=== PATIENT | male | born 1950 | race Caucasian/White ===

== ENCOUNTER 2023-11-16 12:41 | Outpatient (OUT) | payer OTHER, SELFPAY ==
--- NOTE | 2023-11-16 12:44 | CT_ITS ---
[address] [address] Patient Name: KIRSTIE BOSWELL MRN: [id number] date: 1950 Sex: M Assigned Patient Location: CT Current Patient Location: CT Accession/Order Number: [id number] Exam Date: 11/16/2023 12:50 Report Date: 11/16/2023 14:09 At the request of: ELEAZAR SCALES Procedure: CT lung screening low-dose EXAMINATION: CT lung screening low-dose HISTORY: History Of Heavy Smoking COMPARISON: No relevant comparison available. TECHNIQUE: Axial, Coronal, and Sagittal images were created without the administration of IV contrast material. Dose reduction techniques were achieved by using automated exposure control and/or adjustment of mA and/or kV according to patient size and/or use of iterative reconstruction technique. FINDINGS: LUNGS: Mild centrilobular and paraseptal emphysema with an upper lobe predominance. Scattered punctate pulmonary nodules. No significant pulmonary nodule or mass is observed. Mild diffuse peribronchial thickening PLEURA: No mass, effusion, or pneumothorax. VASCULATURE: No abnormality. JOSH: No mass or pathologic adenopathy. MEDIASTINUM: No mass or pathologic adenopathy. CARDIAC: No enlargement or pericardial effusion. Heavy coronary atherosclerosis AORTA: Dilation of the ascending aorta up to 4.1 cm in diameter. Moderate diffuse atherosclerosis. Abdominal aortic endograft partially visualized. CHEST WALL: No mass or axillary adenopathy BONES: No bone lesion or fracture. LIMITED ABDOMEN: No suspicious findings. Limited images of the upper abdomen. OTHER: Negative. CT/CT lung screening low-dose IMPRESSION: LUNG SCREENING: Lung-RADS Category 2- Benign Appearance or Behavior. Nodules with a very low likelihood of becoming a clinically active cancer due to size or lack of growth. 2. Continue annual screening with LDCT in 12 months. Electronically authenticated by: ELEAZAR GOODWIN Date: 11/16/2023 14:09
== END 2023-11-16 12:42 | disposition home or self-care (01) ==
LOC: CT 12:41
PROVIDERS: Visit Provider Family Medicine
DX: F17.200 Nicotine dependence, unspecified, uncomplicated (principal)
CPT/HCPCS: 71271

== ENCOUNTER 2024-07-02 14:44 | Emergency (ER) | payer OTHER, SELFPAY ==
[2024-07-02] VITALS (9 sets, daily range): BP systolic 109–144; BP diastolic 72–93; PULSE 62–79; TEMP 36.6; O2SAT 94–98; BMI 21.1
--- NOTE | 2024-07-02 14:49 | ECG_ITS ---
The [facility] Test Date: 2024-07-02 Pat Name: KIRSTIE BOSWELL Department: Room: - Gender: Male [employer]: : 1950 Requested By: Order Number: [id number] Reading MD: LINDA ELLIS Measurements Intervals [place] Rate: 64 P: 270 KS: 112 QRS: 32 QRSD: 82 T: 28 QT: 422 QTc: 431 Interpretive Statements 1300 Junctional rhythm 9140 abnormal rhythm ECG Electronically Signed On 07-02-2024 20:42:43 EDT by LINDA ELLIS
--- NOTE | 2024-07-02 14:49 | XR_ITS ---
The [address] [address] Patient Name: KIRSTIE BOSWELL MRN: [id number] date: 1950 Sex: M Assigned Patient Location: ED.MAIN Current Patient Location: ED.MAIN Accession/Order Number: [id number] Exam Date: 07/02/2024 15:21 Report Date: 07/02/2024 16:01 At the request of: JENNIFER DENNEY Procedure: XR chest 1V EXAM: XR chest 1V HISTORY: Near syncope COMPARISON: None. TECHNIQUE: AP upright portable. FINDINGS: Atherosclerotic calcification of the thoracic aorta. Cardiac size and pulmonary vascularity are within normal limits. The lungs and the costophrenic angles are clear. Old posttraumatic deformity of the mid left clavicle. Old healed left lateral rib fractures. Advanced degenerative change of the left glenohumeral joint. XR/XR chest 1V IMPRESSION: No acute cardiopulmonary disease. Electronically authenticated by: ETTA KELLY Date: 07/02/2024 16:01
--- NOTE | 2024-07-02 14:49 | CT_ITS ---
The [address] [address] Patient Name: KIRSTIE BOSWELL MRN: [facility]:[id number] date: 1950 Sex: M Assigned Patient Location: ED.MAIN Current Patient Location: ED.MAIN Accession/Order Number: [id number] Exam Date: 07/02/2024 15:21 Report Date: 07/02/2024 15:46 At the request of: JENNIFER DENNEY Procedure: CT cervical spine wo con CT CERVICAL SPINE WITHOUT IV CONTRAST. INDICATION: Near syncope. COMPARISON: There are no prior studies available for comparison. TECHNIQUE: CT of the cervical spine without contrast. Orthogonal sagittal and coronal multiplanar reformatted images were created. . FINDINGS: BONY ALIGNMENT: There is normal cervical lordosis. There is minimal grade 1 anterolisthesis at C7-T1 without spondylolysis. VERTEBRAL BODY: No acute fracture of the cervical spine. Moderate multilevel degenerative spondylosis. CENTRAL CANAL/NEURAL FORAMINA: No high-grade central canal stenosis. There is moderate to severe left C3-4 and left C5-6 neural foraminal stenosis.. SOFT TISSUE: No mass or inflammation. UPPER LUNGS: No acute findings. CT/CT cervical spine wo con IMPRESSION: No acute cervical spinal fracture. Electronically authenticated by: SARAH BARRIENTOS Date: 07/02/2024 15:46
--- NOTE | 2024-07-02 14:50 | ED_ITS ---
HPI HPI - General Adult General Chief complaint: Syncope Stated complaint: SYNCOPE Time Seen by Provider: 07/02/24 14:49 Source: patient and EMR Mode of arrival: ambulance History of Present Illness HPI narrative: Patient is a 74-year-old male with a history of hypertension and remote history of CVA who presents to the emergency department by ambulance after a syncopal episode that was apparently witnessed at the [employer] where the patient was drinking with his daughter. He was apparently witnessed to slump over after eating. Daughter told EMS that they have been trying to get home health for the patient as he had a fall last night, EMS was dispatched but he refused treatment. Patient denies any recent illness. He has no pain at time of evaluation and did not have any falls or injuries. EMS started fluids, no medications given prior to arrival. Related Data Home Medications ?Medication ?Instructions ?Recorded ?Confirmed amlodipine 07/02/24 gabapentin 07/02/24 metoprolol tartrate 07/02/24 omeprazole 07/02/24 simvastatin 07/02/24 Allergies Allergy/AdvReac Type Severity Reaction Status Date / Time atorvastatin [From Lipitor] Allergy Severe Unknown Verified 07/02/24 14:54 lisinopril Allergy Severe Unknown Verified 07/02/24 14:54 Opioid HPI Opioid Management Most Recent Opioid Data: No Data to Display Review of Systems ROS Constitutional Denies: fever or chills Ears, nose, mouth, and throat Denies: throat pain or nasal congestion Cardiovascular Denies: chest pain Respiratory Denies: shortness of breath or cough Gastrointestinal Denies: nausea or vomiting Musculoskeletal Denies: back pain, neck pain or extremity pain Integumentary/Breast Denies: rash Neurological Denies: numbness in extremities, weakness in extremities or dizziness Hematologic/Lymphatic Denies: easy bruising or easy bleeding Exam Narrative Exam Narrative: Gen.: Awake, alert, in no distress Head: Normocephalic, atraumatic ENT: Moist mucous membranes Respiratory: No respiratory distress, lungs clear bilaterally Cardio: Regular rate and rhythm Gastrointestinal: Abdomen is soft, nondistended and nontender to palpation Extremities: Moves extremities equally, no injuries noted Psych: Normal mood and affect Neuro: No focal neuro deficit Skin: Warm, dry, intact Constitutional Vital Signs, click to edit/add: Last Vital Signs Temp 97.9 F 07/02/24 14:48 Pulse 65 07/02/24 16:00 Resp 22 H 07/02/24 16:00 BP 144/77 H 07/02/24 16:12 Pulse Ox 97 07/02/24 16:00 O2 Del Method Room Air 07/02/24 14:48 Course Vital Signs Vital signs: Vital Signs Temperature 97.9 F 07/02/24 14:48 Pulse Rate 70 07/02/24 14:48 Respiratory Rate 18 07/02/24 14:48 Blood Pressure 125/75 07/02/24 14:48 Pulse Oximetry 97 07/02/24 14:48 Oxygen Delivery Method Room Air 07/02/24 14:48 Temperature 97.9 F 07/02/24 14:48 Pulse Rate 65 07/02/24 16:00 Respiratory Rate 22 H 07/02/24 16:00 Blood Pressure 144/77 H 07/02/24 16:12 Pulse Oximetry 97 07/02/24 16:00 Oxygen Delivery Method Room Air 07/02/24 14:48 Medical Decision Making MDM Narrative Medical decision making narrative: Patient sent for CTs of the head and C-spine which were unremarkable, chest x- ray is also unremarkable. Patient with no EKG changes or complaints of chest pain in the ER. He was treated with IV fluids. Vital signs remained stable. He was noted to have an elevated troponin of 350. Case was discussed with the patient and his daughter at bedside by attending physician. Patient and daughter are in agreement with transfer to tertiary care facility for cardiology evaluation. He has been to [facility] in the past and request transfer to this facility. Patient was accepted by hospitalist, Dr. Mckeon. He requested that the patient receive Lovenox and lieu of heparin. Patient was treated with a spirin, 1 mg/kg Lovenox subq and is stable at time of transfer to [facility]. Critical care time 35 minutes. SHARED APC VISIT, PHYSICIAN ATTESTATION: [id number] I performed a substantive part of the MDM during the patient?s E/M visit. I personally evaluated and examined the patient. I personally made or approved the documented management plan and acknowledge its risk of complications. Medical Records Medical records reviewed: Yes I reviewed the patient's medical records Lab Data Lab results reviewed: Yes I reviewed the patient's lab results Labs: Lab Results 07/02/24 Range/Units 15:02 WBC 12.6 H (4.0-11.0) 10^3/uL RBC 3.99 L (4.70-6.10) 10^6/uL Hgb 12.3 L (14.0-18.0) g/dL Hct 37.0 L (42.0-54.0) % MCV 92.7 (80.0-94.0) fL MCH 30.8 (25.9-34.0) pg MCHC 33.2 (29.9-35.2) g/dL RDW 13.1 (11.0-15.0) % Plt Count 226 (150-450) 10^3/uL MPV 8.6 L (9.5-13.5) fL Neut % (Auto) 69.9 (43.0-75.0) % Lymph % (Auto) 17.2 L (20.5-60.0) % Eagle % (Auto) 10.5 (1.7-12.0) % Eos % (Auto) 1.7 (0.9-7.0) % Baso % (Auto) 0.4 (0.2-2.0) % Neut # (Auto) 8.8 H (1.4-6.5) 10^3/uL Lymph # (Auto) 2.2 (1.2-3.8) 10^3/uL Eagle # (Auto) 1.3 H (0.3-0.8) 10^3/uL Eos # (Auto) 0.2 (0.0-0.7) 10^3/uL Baso # (Auto) 0.1 (0.0-0.1) 10^3/uL Abs Immat Gran (auto) 0.04 H (0.00-0.03) 10^3/uL Imm/Tot Granulo (auto) 0.3 (0.0-0.5) % PT 10.9 (9.0-11.6) sec INR 1.03 VBG pH 7.458 H (7.330-7.430) VBG pCO2 32.1 L (40.0-52.0) mmHg Sodium 141 (136-145) mmol/L Potassium 3.2 L (3.5-5.1) mmol/L Chloride 104 (98-107) mmol/L Carbon Dioxide 28.3 (21.0-32.0) mmol/L Anion Gap 11.9 BUN 32.0 H (7.0-18.0) mg/dL Creatinine 1.28 (0.70-1.30) mg/dL Est GFR ( Amer) >60 (>=60) Est GFR (Non-Af Amer) 55 L (>=60) BUN/Creatinine Ratio 25.0 Glucose 99 (74-106) mg/dL Lactate 2.4 H* (0.4-2.0) mmol/L Calcium 8.9 (8.5-10.1) mg/dL Magnesium 2.2 (1.8-2.4) mg/dL Total Bilirubin 0.8 (0.2-1.0) mg/dL AST 24 (15-37) U/L ALT 18 (16-63) U/L Alkaline Phosphatase 49 (46-116) U/L Troponin I High Sens 350.8 H* (4.0-76.1) pg/mL NT-Pro-B Natriuret Pep 785.0 (<=1800.0) pg/mL Total Protein 6.7 (6.4-8.2) g/dL Albumin 3.4 (3.4-5.0) g/dL Globulin 3.3 g/dL Albumin/Globulin Ratio 1.0 TSH 0.949 (0.358-3.740) uIU/mL Ethanol Quant 24 mg/dL Imaging Data CT scan - head: Attestation: I have reviewed the pertinent imaging results. Radiologist's impression: ITS Impressions Cervical Spine CT 07/02/24 14:49 IMPRESSION: No acute cervical spinal fracture. Electronically authenticated by: SARAH BARRIENTOS Date: 07/02/2024 15:46 Chest X-Ray 07/02/24 14:49 IMPRESSION: No acute cardiopulmonary disease. Electronically authenticated by: ETTA KELLY Date: 07/02/2024 16:[address] 07/02/24 14:50 IMPRESSION: 1. No acute intracranial process is identified. 2. Old bilateral basal ganglia and bilateral thalamic lacunar infarcts. Moderate-severe bilateral chronic microvascular ischemic changes. Diffuse cerebral atrophy. Ventriculomegaly, likely secondary to central atrophy. Electronically authenticated by: ETTA KELLY Date: 07/02/2024 16:02 ECG Data Attestation: I personally reviewed and interpreted this ECG as follows: (Junctional rhythm at a rate of [address] elevation or ectopy. EKG reviewed by attending physician) Critical Care Time Critical Care Time Critical Care Time: Yes Total Critical Care Time: 35 Attestation: 35 minutes of critical care time for assessment of elevated troponin, transfer to tertiary care facility Discharge Plan Discharge Chief Complaint: Syncope Clinical Impression: Non-ST elevated myocardial infarction (non-STEMI), Syncope Patient Disposition: [facility] Time of Disposition Decision: 16:21 Discharge Location: [facility] Condition: Good Mode of Transportation: EMS Prescriptions / Home Meds: No Action amlodipine simvastatin metoprolol tartrate gabapentin omeprazole Print Language: [place] Citizen Instructions: Gout (ED) Referrals: Physician,Non-Staff, MD [Primary Care Provider] - 1 week
--- NOTE | 2024-07-02 14:50 | CT_ITS ---
The [address] [address] Patient Name: KIRSTIE BOSWELL MRN: [facility]:[id number] date: 1950 Sex: M Assigned Patient Location: ED.MAIN Current Patient Location: ED.MAIN Accession/Order Number: [id number] Exam Date: 07/02/2024 15:21 Report Date: 07/02/2024 16:02 At the request of: JENNIFRE DENNEY Procedure: CT head/brain wo con EXAM: CT head/brain wo con HISTORY: Near syncope. COMPARISON: None. TECHNIQUE: Unenhanced transaxial tomographic sections obtained from the vertex through the posterior fossa. FINDINGS: No midline shift, mass effect or intracranial hemorrhage are identified. Old bilateral basal ganglia and bilateral thalamic lacunar infarcts. Moderate-severe diffuse chronic microvascular ischemic changes. Diffuse cerebral atrophy. Ventriculomegaly which may be secondary to central atrophy. The mastoid air cells and the visualized paranasal sinuses are clear. CT/CT head/brain wo con IMPRESSION: 1. No acute intracranial process is identified. 2. Old bilateral basal ganglia and bilateral thalamic lacunar infarcts. Moderate-severe bilateral chronic microvascular ischemic changes. Diffuse cerebral atrophy. Ventriculomegaly, likely secondary to central atrophy. Electronically authenticated by: ETTA KELLY Date: 07/02/2024 16:02
[2024-07-02 15:11] LABS: Basophils Absolute Auto 0.1 10^3/uL (0.0-0.1); Basophils Percent Auto 0.4 % (0.2-2.0); Eosinophils Absolute Auto 0.2 10^3/uL (0.0-0.7); Eosinophils Percent Auto 1.7 % (0.9-7.0); Hemoglobin 12.3 g/dL (14.0-18.0); Immature Granulocytes Abs Auto 0.04 10^3/uL (0.00-0.03); Immature Granulocytes Pct Auto 0.3 % (0.0-0.5); Lymphocytes Absolute Auto 2.2 10^3/uL (1.2-3.8); Lymphocytes Percent Auto 17.2 % (20.5-60.0); Mean Corpuscular HGB Conc 33.2 g/dL (29.9-35.2); Mean Corpuscular Hemoglobin 30.8 pg (25.9-34.0); Mean Corpuscular Volume 92.7 fL (80.0-94.0); Mean Platelet Volume 8.6 fL (9.5-13.5); Monocytes Absolute Auto 1.3 10^3/uL (0.3-0.8); Monocytes Percent Auto 10.5 % (1.7-12.0); Neutrophils Absolute Auto 8.8 10^3/uL (1.4-6.5); Neutrophils Percent Auto 69.9 % (43.0-75.0); Platelet Count 226 10^3/uL (150-450); Red Blood Count 3.99 10^6/uL (4.70-6.10); Red Cell Distribution Width 13.1 % (11.0-15.0); White Blood Count 12.6 10^3/uL (4.0-11.0)
[2024-07-02 15:12] LABS: PCO2 VBG 32.1 mmHg (40.0-52.0); pH VBG 7.458 (7.330-7.430)
--- OUTSIDE RECORDS SUMMARY | 2024-07-02 15:14 | XMS_ITS | CCD ---
Author Organization [facility] Care Team Providers Care Railroad Worker Name Role Phone Theresa Braden Unavailable Med Parkinson Unavailable DO Eleazar Modi Primary Care Provider [phone] MD Med Parkinson Attending Provider ELEAZAR MODI Primary Care Physician [phone] NYA MERCADO Admitting Unavailable NYA MERCADO Attending Unavailable DR DIANA RAI LISTED Primary Care Unavaila ble NYA MERCADO Consulting Unavailable DO Eleazar Modi Primary Care Provider MD Med Parkinson Attending Provider MD Med Parkinson Attending Provider DO Eleazar Modi Attending Provider Eleazar Modi Primary Care Unavailable Med Parkinson Admitting Unavailable Med Parkinson Attending Unavailable Eleazar Modi Primary Care Unavailable Eleazar Modi Attending Unavailable Eleazar Modi Admitting Unavailable Nya Lloyd Attending Unavailable SWETHA BREWER Attending Unavailable Nya Lloyd Attending Unavailable Allergies Allergy Classification Reported Allergen(s) Allergy Type Date of Onset Reaction(s) Facility (8 sources) Lisinopril Drug Allergy 2 Unknown, throat itching [facility] (1 source) Lisinopril Drug Allergy 3 [facility] Repository (1 source) No Known Medication Allergies; Translations: [No Known Medication Allergies] Propensity to adverse reactions (disorder) [facility] Repository Medications Current Medications Medication Drug Class(es) Dates Sig (Normalized) Sig (Original) 200 actuat albuterol 0.09 mg/actuat dry powder inhaler (9 sources) beta2-Adrenergic Agonist Start: 07-26-2022 take 1 puff(s) by inhalation every six hours albuterol 90 mcg/inh inhalation powder puff(s), Inhalation, q6hr, Refill(s) 0 Start Date: 07/26/22 Status: Ordered take 1 puff(s) by in halation every four hours as needed Albuterol Sulfate HFA 108 (90 Base) MCG/ACT 1 puff as needed Inhalation every 4 hrs Active take 1 puff(s) by in halation every four hours as needed Albuterol Sulfate HFA 108 (90 Base) MCG/ACT 1 puff as needed Inhalation every 4 hrs Active amLODIPine 2.5 mg oral tablet (12 sources) Dihydropyridine Calcium Channel Jadiel Start: 11-19-2019 take 2.5 mg by mouth once daily Amlodipine Active 2.5 MG PO Daily November 19, 2019 1:00am Budesonide (4 sources) Corticosteroid Budesonide Active budesonide-formo terol 160 mcg-4.5 mcg/inh Inh Aer w/adapter (4 sources) Start: 07-26-2022 take 1 puff(s) by inhalation twice daily budesonide-formo terol 160 mcg-4.5 mcg/inh Inh Aer w/adapter puff(s), Inhalation, BID, Refill(s) 0 Start Date: 07/26/22 Status: Ordered gabapentin 300 mg oral capsule (9 sources) Anti-epileptic Agent Start: 07-26-2022 take 1 mg by mouth three times daily gabapentin 300 mg Cap mg cap(s), Oral, TID, Refills(s) 0 Start Date: 07/26/22 Status: Ordered take 1 capsule by mo [facility] every eight hours Gabapentin 100 MG 1 capsule Orally three times a day Active take 1 capsule by mo [facility] every twenty-four hours Gabapentin 300 MG 1 capsule Orally Once a day Active losartan potassium 100 mg oral tablet (12 sources) Angiotensin 2 Receptor Jadiel Start: 11-19-2019 take 100 mg by mouth once daily Losartan Active 100 MG PO Daily November 19, 2019 1:00am meloxicam 15 mg oral tablet (4 sources) Nonsteroidal Anti-inflammatory Drug take 1 tablet by mouth every twenty-four hours Meloxicam 15 MG 1 tablet Orally Once a day Active 24 hr metoprolol succinate 25 mg extended release oral tablet (12 sources) beta-Adrenergic Jadiel Start: 07-26-2022 take 1 mg by mouth once daily metoprolol 25 mg ER Tab mg tab(s), Oral, Daily, Refills(s) 0 Start Date: 07/26/22 Status: Ordered Start: 11-19-2019 take 25 mg by mouth twice janet y Metoprolol Tartrate Active 25 MG PO Twice daily November 19, 2019 1:00am take 1 capsule by [facility] once daily Metoprolol Succinate 25 MG 1 capsule Orally Once a day Active 24 hr mirabegron 50 mg extended release oral tablet (2 sources) beta3-Adrenergic Agonist Start: 01-30-2023 take 1 tablet by mouth once daily mirabegron 50 mg oral tablet, extended release 50 mg = 1 tab(s), Oral, Daily, # 30 tab(s), Refills(s) 6, Pharmacy: [facility], 175, cm, 01/30/23 9:40:00 EDT, Height/Length Dosing, 73, kg, 01/30/23 9:40:00 EDT, Weight Dosing Start Date: 01/30/23 Status: Ordered omeprazole 40 mg delayed release oral capsule (11 sources) Proton Pump Inhibitor Start: 07-26-2022 take 1 mg by mouth once daily omeprazole 40 mg Cap-DR mg cap(s), Oral, Daily, Refills(s) 0 Start Date: 07/26/22 Status: Ordered Start: 08-18-2021 take 40 mg by mouth twice janet y Omeprazole Active 40 MG PO Twice daily 168 84 August 18, 2021 12:00am Omeprazole Activ e Prostate Health - (5 sources) Prostate Health - as directed Orally Active simvastatin 20 mg oral tablet (12 sources) HMG-CoA Reductase Inhibitor Start: 2 take 1 mg by mouth once daily at bedtime simvastatin 20 mg Tab mg tab(s), Oral, Once a day (at bedtime), Refills(s) 0 Start Date: 07/26/22 Status: Ordered Start: 11-19-2019 take 20 mg by mouth once daily in the evening Simvastatin Active 20 MG PO Every evening November 19, 2019 1:00am take 1 tablet by molly th every twenty-four hours Simvastatin 40 MG 1 tablet in the evening Orally Once a day Active sulfamethoxazole 800 mg / trimethoprim 160 mg oral tablet (1 source) Dihydrofolate Reductase Inhibitor Antibacterial, Sulfonamide Antimicrobial Start: 07-26-2022 End: 09-06-2022 Bactrim DS 800 mg-160 mg Tab 1 tab(s), Oral, q12hr for 6 week(s), 84 tab(s), Refill(s) 0, [facility], 175, cm, 07/26/22 11:04:00 EDT, Height/Length Dosing, 73, kg, 07/26/22 11:04:00 EDT, Weight Dosing Start Date: 07/26/22 Stop Date: 09/06/22 Status: Ordered Super Beta Prostate Tab (3 sources) Start: 11-19-2019 take 1 tablet by mouth once daily Super Beta Prostate Tab Active 1 TAB PO Daily November 19, 2019 1:00am tadalafil 5 mg oral tablet (1 source) Phosphodiesterase 5 Inhibitor Start: 10-04-2022 take 1 tablet by mouth once daily Cialis 5 mg oral tablet 5 mg = 1 tab(s), Oral, Daily, # 30 tab(s), Refills(s) 11, Pharmacy: [facility], 175, cm, 10/04/22 8:33:00 EST, Height/Length Dosing, 73, kg, 10/04/22 8:33:00 EST, Weight Dosing Start Date: 10/04/22 Status: Ordered thiamine 50 mg oral tablet (6 sources) Start: 01-25-2022 take 50 mg by mouth once daily Thiamine Hcl (Vitamin B1) Active 50 MG PO Daily January 25, 2022 12:00am Start: 11-19-2019 End: 09-15-2021 take 100 mg by mouth once daily Thiamine Hcl (Vitamin B1) Discontinued 100 MG PO Daily November 19, 2019 1:00am September 15, 2021 9:15am Completed/Discontinued Medications Medication Drug Class(es) Dates Sig (Normalized) Sig (Original) aspirin 81 mg delayed release oral tablet (14 sources) Platelet Aggregation Inhibitor, Nonsteroidal Anti-inflammatory Drug Start: 11-19-2019 take 325 mg by mouth once daily Aspirin Active 325 MG PO Daily November 19, 2019 1:00am Start: 11-19-2019 End: 09-15-2021 take 81 mg by mouth once daily Aspirin Discontinued 81 MG PO Daily August 18, 2021 12:00am September 15, 2021 9:13am cholecalciferol 0.05 mg oral tablet (6 sources) Vitamin D Start: 11-19-2019 End: 09-15-2021 take 2000 [IU] by mouth once daily Cholecalciferol (Vitamin D3) Discontinued 2000 UNIT PO Daily November 19, 2019 1:00am September 15, 2021 9:14am take 1 tablet by molly th every twenty-four hours Vitamin D3 10 MCG (400 UNIT) 1 tablet Orally Once a day Not-Taking Vitamin D3 10 MCG (400 UNIT) (1 source) take 1 tablet by molly th once daily Vitamin D3 10 MCG (400 UNIT) 1 tablet Orally Once a day Not-Taking Problems Active Problems Problem Classification Problem Date Documented Date Episodic/Chronic Aortic; peripheral; and visceral artery aneurysms (14 sources) Abdominal aortic aneurysm without rupture; Translations: [Abdominal aortic aneurysm, without rupture] Onset: 2 Resolved: 2 Chronic Complications of surgical procedures or medical care (4 sources) CVA (cerebrovascular accident) during surgery 07-26-2022 Episodic Digestive congenital anomalies (5 sources) Terminal esophageal web; Translations: [Esophageal web] Chronic Disorders of lipid metabolism (4 sources) Hypercholesterolemia 07-26-2022 Chronic Esophageal disorders (15 sources) Gastroesophageal reflux disease; Translations: [Gastro-esophageal reflux disease without esophagitis] Chronic Essential hypertension (4 sources) Hypertensive disorder 07-26-2022 Chronic Hyperplasia of prostate (7 sources) Benign prostatic hypertrophy with outflow obstruction; Translations: [Benign prostatic hyperplasia with lower urinary tract symptoms] Onset: 2 Chronic Inflammatory conditions of male genital organs (7 sources) Prostatitis; Translations: [Inflammatory disease of prostate, unspecified] Onset: 2 Episodic Other diseases of bladder and urethra (1 source) Detrusor overactivity; Translations: [Overactive bladder] Onset: 3 Chronic Other diseases of bladder and urethra (1 source) Overactive bladder 07-10-2023 Chronic Other diseases of kidney and ureters (1 source) Urinary tract obstruction; Translations: [Other obstructive and reflux uropathy] Onset: 3 Episodic Other nervous system disorders (5 sources) Unsteady gait; Translations: [Unsteadiness on feet] Episodic Other screening for suspected conditions (not mental disorders or infectious disease) (11 sources) Raised prostate specific antigen; Translations: [Elevated prostate specific antigen [PSA]] Onset: 2 Episodic Spondylosis; intervertebral disc disorders; other back problems (5 sources) Inflammation of sacroiliac joint; Translations: [Sacroiliitis, not elsewhere classified] Chronic Spondylosis; intervertebral disc disorders; other back problems (5 sources) Degenerative lumbar spinal stenosis; Translations: [Spinal stenosis, lumbar region without neurogenic claudication] Episodic Substance-related disorders (13 sources) Smoker; Translations: [Nicotine dependence, unspecified, uncomplicated] Onset: 2 Resolved: 2 Chronic Comment on above: Added secondary to d ocumentation in Social History. Syncope (3 sources) Syncope; Translations: [Syncope and collapse] 11-19-2019 Episodic Unclassified (1 source) Age-related physical debility; Translations: [Age-related physical debility] Onset: 3 Unclassified (1 source) Abdominal aortic aneurysm, without rupture, unspecified; Translations: [Abdominal aortic aneurysm, without rupture, unspecified] Onset: 3 Past or Other Problems Problem Classification Problem Date Documented Da te Episodic/Chronic Residual codes; unclassified (1 source) Other specified health status Onset: 01-23-2022 Resolved: 01-23-2022 Episodic Unclassified (4 sources) Education about chronic obstructive pulmonary disease 07-26-2022 Unclassified (1 source) Infrarenal abdominal aortic aneurysm (AAA) without rupture I71.43 Results Test Name Value Interpretation Reference Range Facility Provider Letteron 10-03-2023 Provider Letter (Inserted Image. Jo ble to display) October 03, 2023 KIRSTIE CAMPOS [address] [place] [id number] : 1950 Dear Kirstie , This letter is to inform you the providers of [facility] will no longer be responsible for your routine medical care due to non compliance. Emergency care only will be provided for the thirty (30) days following this letter. During this time period we suggest that you find another physician for your medical needs. A listing of area physicians can be found on [facility]'s website at [email or web address] or you may contact your health plan. We will be glad to forward your records to your new physician as long as we receive a signed release of records form. Sincerely, Normal [facility] Patient Correspondenceon Patient Correspondence [id number] IFF Normal [facility] Patient Letter FTMCon 2022 Patient Letter [facility] (Inserted Image. Jo ble to display) September 03, 2023 KIRSTIE ANDREIA [facility] [place] [address] : 1950 Dear Kirstie, I am corresponding to you by certified mail because you have a medical condition, Elevated PSA which requires follow up. It was recommended that you follow up with me but you cancelled your 07/11/23 office visit. We tried contacting you to reschedule on 07/14/23, 07/27/23 and 08/02/23 and we have not received a response. Please contact my office at your earliest convenience and we will reschedule your appointment so I can closely monitor your condition. Elevated PSA can be an indication for prostate cancer. I cannot be responsible for your urologic care if you do not follow up as recommended. Non compliance may result in dismissal from the practice. Thank you for your prompt attention to this matter. Sincerely, Nya Lloyd M.D. [facility] [address] [place] [address] [place] [address] [facility] Provider Letteron 08-02-2023 Provider Letter (Inserted Image. Jo ble to display) August 02, 2023 KIRSTIE ANDREIA [address] [place] [address] : 1950 Dear Mr. Campos , We called and spoke to you on the phone on 08/02/23 but you had difficulty hearing. You had an appointment with Dr. Nya Lloyd MD on July 11, 2023 which you cancelled, but Dr. Lloyd would like you to reschedule this appointment. Please contact the office at the number listed below to get this appointment rescheduled at your earliest convenience. Thank you for your prompt attention to this matter. Call [phone] option 3 to be reschedule. We also want to make you aware that your [facility] referral on 07/29/23 so if you want the [place] to do another authorization, you would need to contact Dr Modi and ask him to update or extend that referral for our office. Otherwise, when you come in for recheck be sure to bring your private insurance cards. Sincerely, [facility] Reminderson 08-01-2023 Reminders - From: Yaneli Jefferson To: GONZALEZ Lloyd; Sent: 01/30/2023 10:50:32 EDT Show up: 01/30/2023 10:50:00 EDT Subject: 6m with PSA Due Date/Time: 06/05/2023 00:00:00 EDT Reminder Message Please Remember to:_schedule 6 month with PSA PATIENT RELATED REMINDER:_ ( ) Call Patient ( ) Ask Patient to ( ) Call Relative ( ) Schedule Patient ( ) Follow up on Results ( ) Other: PROVIDER RELATED REMINDER:_ ( ) Board Liner Operator ( ) Call Pharmacy ( ) Call Lab ( ) Other: Special Instructions:_ Comments:_ Pt no showed appointment and did not have PSA drawn yet. See other message in pt chart, pt is being tracked. [facility] Lab Reportson 07-09-2023 Lab Reports [id number] D:127 [facility] RAD - CT Reporton 07-09-2023 RAD - CT Report [id number] CD:127 [facility] CT angio abdomen pelvison CT angio abdomen pelvis [facility] [place] [address] CT Scan Report Signed Patient: Kirstie Campos MR#: [id number] 6 : 1950 Acct:[id number] Age/Sex: 73 / M ADM Date: 06/28/23 Loc: CT Room: Type: [facility] Attending Dr: Med Parkinson MD Copies to: Med Parkinson MD Ordering Provider: Med Parkinson MD Date of Service: 06/28/23 CT/CT angio abdomen pelvis: I71.4 CTA abdomen and pelvis . CLINICAL DATA: Follow-up AAA repair. TECHNIQUE: CT of the abdomen and pelvis was initially performed without contrast. Intravenous contrast-enhanced CT angiography of the abdomen and pelvis was then performed. Axial, sagittal, coronal and volume-rendered three-dimensional reconstructions were created and reviewed. This CT exam was performed using one or more of the following dose reduction techniques: Automated exposure control, adjustment of the mA and/or kV according to patient size, or use of iterative reconstruction technique. COMPARISON: CTA abdomen and pelvis 06/05/2022.. FINDINGS: Lung Bases: Minimal atelectasis. Organs:Endovascular repair is noted involving the patient's infrarenal abdominal aortic injury is some. Stent graft appears patent. The [place] aneurysmal sac appears to have decreased in size since the prior CT study now measuring 4.3 cm, once measuring 4.8 cm. No evidence of endoleak is seen. No critical stenosis or occlusion is seen involving the major branch vessels of the abdominal aorta.[ Liver gallbladder spleen pancreas and adrenal glands appear unremarkable. No enhancing renal mass or hydronephrosis. GI: Stomach is grossly unremarkable. Small bowel appears nondilated. Appendix is normal. No acute colonic abnormality.[ Pelvis:[Prostatomegaly. Urinary bladder is grossly unremarkable.] Peritoneum/Retroperiton eum:No free air, free fluid or lymphadenopathy.[ Abd wall/Bones:Abdominal wall demonstrates no acute findings. Osseous structures demonstrate degenerative change.[ CT/CT angio abdomen pelvis IMPRESSION: Patent endovascular repair without evidence of endoleak. Impression dictated by: Maldonado Shipman Jr., D.O.06/28/2023 1:37 PM Dictation Location: [place] [address] Transcribed By: [facility] 06/28/23 1338 Dictated By: Maldonado Shipman Jr, DO 06/28/23 1330 Signed By: 06/28/23 1337 Normal [facility] Creatinine (Bld) [Mass/Vol]O rdered By: Med Parkinson on 06-28-2023 Creatinine [Mass/Vol] 0.9 mg/dL 0.6-1.3 [facility] Comment on above: ER/ESD physician is notified/shown all ISTAT results.Critical values may be confirmed by laboratory testing ifdeemed necessary by ER attending doctor. ISTAT XRay CREon 06-28-2023 Creatinine [Mass/Vol] 0.9 mg/dL Normal 0.6-1.3 [facility] Comment on above: Result Comment: ER/E SD physician is notified/shown all ISTAT results. Critical values may be confirmed by laboratory testing if deemed necessary by ER attending doctor. Performed By: #### I SCRE #### [facility] [address] [place] [address] ISTAT GFR > 60.0 [facility] Comment on above: Result Comment: PERF ORMED BY: [place] [address] PATHOLOGIST RN PEDIATRIC ICU IAN LA M.D. Performed By: #### I SCRE #### [facility] [address] [place] [address] Pre-Certification Formon Pre-Certification Form [id number] D:127 [facility] Consent for Procedure/Surger yon 01-30-2023 Consent for Procedure/Surgery [id number] D:127 [facility] Urology Office/Clinic Noteon 01-30-2023 Urology Office/Clinic Note Chief Complaint Cysto HPI Staff Cysto History of Present Illness reviewed medical history, Consent obtained. Review of Systems PHQ Score Initial Depression Screen Score: 0 ROS - Provider Constitutional: denies weight loss, denies hot flashes. Eyes: denies eye problems. Gastrointestinal: denies nausea, denies vomiting. Cardiovascular: denies chest pain or angina. Integumentary: no dryness Musculoskeletal: denies musculoskeletal symptoms. ENMT: denies otolaryngeal symptoms. Respiratory: no shortness of breath. Heme/Lymph: denies easy bleeding tendency, denies easy bruising tendency. Psychiatric: no confusion, no anxiety. Genitourinary: denies dysuria, denies hematuria, denies discharge, denies urinary hesitancy, denies nocturia, denies incontinence, genital sores, denies decreased libido, and denies erectile dysfunction. Physical Exam Vitals & Measurements HR: 63(Peripheral) BP: 131/95 HT: 69 in HT: 175 cm WT: 73 kg WT: 160.6 lb BMI: 23.84 Procedure Operative Information Anesthesia Type: Local Procedure: Local Cystoscopy Complications: None Surgical risks, benefits, details of the procedure have been explained to the patient. Full informed consent has been obtained. Intraoperative Information Prepped: Patient is brought back to the endoscopy suite. Patient is placed in supine position. Patient prepped in the usual fashion with Betadine solution. 2% Xylocaine Jelly is placed per Urethra. After waiting several minutes, the Cystoscope is introduced. The Urethra is: Normal The Prostatic Urethra is: moderate bilobar hypertrophy, mild 5-10mm intravesical mass effect without sulcus/prominent median lobe. 2.5 cm The Bladder: Normal, Trabeculated: 1-2 capacious The Ureteral orifices: Show efflux of clear urine Removal: Cystoscope is removed. The patient tolerated it well. Postoperative Information Patient is discharged home with antibiotic coverage. Follow up arranged. Assessment/Plan Thoroughly discussed findings and situation with daughter, limited history from pt 1. BPH with urinary obstruction (N40.1: Benign prostatic hyperplasia with lower urinary tract symptoms) Started on Cialis 5mg daily at last encounter. Has not noticed an improvement since starting medication. C/o weak stream & sudden urgency. Patient here today for Cysto for further evaluation for minimally invasive procedure. Difficult to obtain history or bothersome complaints with pt. Prior PVR 0-62 ml Feels he doesnt empty all the way, unable to tell how often he is voiding -Dc cialis -Will Start Myrbetriq 50 mg daily. Risks/benefits discussed. If helpful, will discuss botox, risks already discussed. Daughter to call if med expensive for alternative -Refused Urocuff Ordered: [id number] Cystourethroscopy PSA Total 2. Elevated PSA (R97.20: Elevated prostate specific antigen [PSA]) PSA 09/07/22- 4.3 and 15.6% (after prostatitis tx) 04/11/22- 7.21 04/11/22- 9.0 & 11.3% free 06/27/21- 3.01 No known family hx of prostate cancer. Prior JILL no firm nodules. Declined MRI of prostate at last visit and again today. Agreed previously to rechecking PSA in 6 months (due in March 2023). -Patient will return in 6 months with PSA. Ordered: [id number] Cystourethroscopy PSA Total 3. Prostatitis (N41.9: Inflammatory disease of prostate, unspecified) completed 6 wk antibiotic course of Bactrim. Denies reoccurrence or sx change, but PSA came down Ordered: [id number] Cystourethroscopy PSA Total 4. OAB (overactive bladder) (N32.81: Overactive bladder) Patient here today for Cysto for further evaluation for minimally invasive procedure. Difficult to obtain history or bothersome complaints with pt. Prior PVR 0-62 ml Feels he doesnt empty all the way, unable to tell how often he is voiding -Dc cialis -Will Start Myrbetriq 50 mg daily. Risks/benefits discussed. If helpful, will discuss botox, risks already discussed. Daughter to call if med expensive for alternative -Refused Urocuff Ordered: mirabegron, 50 mg = 1 tab(s), Oral, Daily, # 30 tab(s), Refills(s) 6, Pharmacy: [facility], 175, cm, 01/30/23 9:40:00 EDT, Height/Length Dosing, 73, kg, 01/30/23 9:40:00 EDT, Weight Dosing Follow-up With When Contact Information Gabino MARTINEZ, Nya Borjas, URL, URO In 6 months [address], [place] [address]- [phone] Additional Instructions: w/ PSA Patient Education Cystoscopy I, Yaneli Jefferson, personally scribed for Dr. Lloyd on 01/30/2023 10:49:35. . Documentation recorded by the germanibYaneli lea, accurately reflects the services(s) I performed and decisions made by me. Authenticated by Dr. Lloyd on 01/30/2023 11:09:11. Problem List/Past Medical History Ongoing At risk for falls BPH with urinary obstruction Elevated PSA Prostatitis Smoker Historical COPD (chronic obstructive pulmonary disease) education CVA (cerebrovasc (more content not included)... [facility] Comment on above: Result Comment: Elec tronically Signed By: Nya Lloyd MD\.br\Date and Time Signed: 01/30/23 11:09 EDT\.br\Electronically Co-Signed By: Yaneli Jefferson\.br\Date and Time Co-Signed: 01/30/23 10:49 EDT Ambulatory Visit Summaryon 0 01-16-2023 Ambulatory Visit Summary KIRSTIE CAMPOS :1950 Visit Date:01/16/2023 Ambulatory Visit Instructions Your Diagnosis BPH with urinary obstruction Elevated PSA Prostatitis Your Care Team Attending Physician - SWETHA BRWEER PA-C Primary Care Physician - ELEAZAR MODI DO This Is Your Medications List tadalafil (Cialis 5 mg oral tablet) Contact prescribing physician if questions or concerns albuterol (albuterol 90 mcg/inh inhalation powder) amlodipine (amLODIPine 2.5 mg Tab) budesonide-formoterol (budesonide-formoterol 160 mcg-4.5 mcg/inh Inh Aer w/adapter) gabapentin (gabapentin 300 mg Cap) losartan (losartan 100 mg Tab) metoprolol (metoprolol 25 mg ER Tab) omeprazole (omeprazole 40 mg Cap-DR) simvastatin (simvastatin 20 mg Tab) Procedures Performed Colonoscopy, High blood pressure, High cholesterol. Discharge Vitals Heart Rate (Peripheral) 68 Blood Pressure 152/90 Height 175 cm Height 69 in Weight 73 kg Weight 160.6 lb BMI 23.84 What to do next Scheduled Follow-Up Appointments Sunday 9:15 AM EDT With: Nya Lloyd MD Where: [facility] Patient Educationon 01-17-20 Patient Education Urology Benign Prostatic Hyperplasia Benign prostatic hyperplasia (BPH) is an enlarged prostate gland that is caused by the normal aging process and not by cancer. The prostate is a walnut-sized gland that is involved in the production of semen. It is located in front of the rectum and below the bladder. The bladder stores urine and the urethra is the tube that carries the urine out of the body. The prostate may get bigger as a man gets older. An enlarged prostate can press on the urethra. This can make it harder to pass urine. The build-up of urine in the bladder can cause infection. Back pressure and infection may progress to bladder damage and kidney (renal) failure. What are the causes? This condition is part of a normal aging process. However, not all men develop problems from this condition. If the prostate enlarges away from the urethra, urine flow will not be blocked. If it enlarges toward the urethra and compresses it, there will be problems passing urine. What increases the risk? This condition is more likely to develop in men over the age of 50 years. What are the signs or symptoms? Symptoms of this condition include: ? Getting up often during the night to urinate. ? Needing to urinate frequently during the day. ? Difficulty starting urine flow. ? Decrease in size and strength of your urine stream. ? Leaking (dribbling) after urinating. ? Inability to pass urine. This needs immediate treatment. ? Inability to completely empty your bladder. ? Pain when you pass urine. This is more common if there is also an infection. ? Urinary tract infection (UTI). How is this diagnosed? This condition is diagnosed based on your medical history, a physical exam, and your symptoms. Tests will also be done, such as: ? A post-void bladder scan. This measures any amount of urine that may remain in your bladder after you finish urinating. ? A digital rectal exam. In a rectal exam, your health care provider checks your prostate by putting a lubricated, gloved finger into your rectum to feel the back of your prostate gland. This exam detects the size of your gland and any abnormal lumps or growths. ? An exam of your urine (urinalysis). ? A prostate specific antigen (PSA) screening. This is a blood test used to screen for prostate cancer. ? An ultrasound. This test uses sound waves to electronically produce a picture of your prostate gland. Your health care provider may refer you to a specialist in kidney and prostate diseases (urologist). How is this treated? Once symptoms begin, your health care provider will monitor your condition (active surveillance or watchful waiting). Treatment for this condition will depend on the severity of your condition. Treatment may include: ? Observation and yearly exams. This may be the only treatment needed if your condition and symptoms are mild. ? Medicines to relieve your symptoms, including: ? Medicines to shrink the prostate. ? Medicines to relax the muscle of the prostate. ? Surgery in severe cases. Surgery may include: ? Prostatectomy. In this procedure, the prostate tissue is removed completely through an open incision or with a laparoscope or robotics. ? Transurethral resection of the prostate (TURP). In this procedure, a tool is inserted through the opening at the tip of the penis (urethra). It is used to cut away tissue of the inner core of the prostate. The pieces are removed through the same opening of the penis. This removes the blockage. ? Transurethral incision (TUIP). In this procedure, small cuts are made in the prostate. This lessens the prostate's pressure on the urethra. ? Transurethral microwave thermotherapy (TUMT). This procedure uses microwaves to create heat. The heat destroys and removes a small amount of prostate tissue. ? Transurethral needle ablation (TUNA). This procedure uses radio frequencies to destroy and remove a small amount of prostate tissue. ? Interstitial laser coagulation (ILC). This procedure uses a laser to destroy and remove a small amount of prostate tissue. ? Transurethral electrovaporization (TUVP). This procedure uses electrodes to destroy and remove a small amount of prostate tissue. ? Prostatic urethral lift. This procedure inserts an implant to push the lobes of the prostate away from the urethra. Follow these instructions at home: ? Take eded-iio-jaqdgqu and prescription medicines only as told by your health care provider. ? Monitor your symptoms for any changes. Contact your health care provider with any changes. ? Avoid drinking large amounts of liquid before going to bed or out in public. ? Avoid or reduce how much caffeine or alcohol you drink. ? Give yourself time when you urinate. ? Keep all follow-up visits as told by your health care provider. This is important. Contact a health care provider if: ? You have unexplained back pain. ? Your symptoms do not get better with treatment. ? You d (more content not included)... Normal [facility] Urology Office/Clinic Noteon 01-16-2023 Urology Office/Clinic Note Chief Complaint Patient here for 3 month f/u and PVR HPI Staff 3m to elevated PSA. BPH & Prostatitis. *Started on Cialis 5mg QD at last encounter. Patient states he would like a refill of Cialis 5mg ([facility]) Patient could not provide urine today. PVR Dysuria: no Incomplete bladder emptying: yes Hematuria: no Frequency: no Urgency: sudden Nocturia: no Stream: weak Leaking: no Post void dripping: no Wearing pads/ Depends: no Urge incontinence: yes Patient states he urinates heavy before getting to the restroom Stress incontinence: no Incontinence without Sensory Awareness: no Abdominal pain: no Flank pain: no History of Present Illness staff HPI reviewed and agree. Review of Systems PHQ Score Initial Depression Screen Score: 0 no fever, chills, malaise, myalgia. no rash/lesions. no chest pain, palpitations, or SOB. no abdominal pain, nausea, vomiting. no unilateral calf swelling, redness, pain Physical Exam Vitals & Measurements HR: 68(Peripheral) BP: 152/90 HT: 69 in HT: 175 cm WT: 73 kg WT: 160.6 lb BMI: 23.84 General: nontoxic, NAD Mouth: moist mucosa Lungs: normal respiratory effort Cardio: regular rate, good distal perfusion Abdomen: nondistended, no suprapubic distention or tenderness, no CVA tenderness Neurologic: Grossly normal Skin: No rashes or suspicious lesions Assessment/Plan daughter primary historian during visit 1. BPH with urinary obstruction (N40.1: Benign prostatic hyperplasia with lower urinary tract symptoms) Started on Cialis 5mg daily at last encounter. Has not noticed an improvement since starting medication. C/o weak stream & sudden urgency. Unable to provide urine sample today. random scan 62 mL. Discussed options - add 5-JOSTIN (alpha jadiel not recommended due to pt already having fall risks) vs Myrbetriq (anticholinergic not recommended as pt already has altered mental status) vs cysto for further evaluation of prostatic urethra to see if pt would be a candidate for minimally invasive prostate procedure. Will schedule Cysto w/ Dr. Lloyd. The risks and benefits for cystoscopy have been discussed. The risks include bleeding, infection, and irritation of the bladder and urinary channel, among others. The patient, after being informed of procedural details and after questions have been answered, wishes to proceed. Full informed consent has been obtained. Will order Local anesthesia. 2. Elevated PSA (R97.20: Elevated prostate specific antigen [PSA]) PSA 09/07/22- 4.3 and 15.6% (after prostatitis tx) 04/11/22- 7.21 04/11/22- 9.0 & 11.3% free 06/27/21- 3.01 No known family hx of prostate cancer. Prior JILL no firm nodules. Declined MRI of prostate at last visit and again today. Agreed previously to rechecking PSA in 6 months (due in March 2023). 3. Prostatitis (N41.9: Inflammatory disease of prostate, unspecified) Treated with Bactrim DS BID x6 wks in the past. No marked change in sxs w abx. Follow-up With When Contact Information Gabino MARTINEZ, Nya Borjas, URL, URO Additional Instructions: Schedule Cysto with Dr. Lloyd Patient Education Benign Prostatic Hyperplasia Documentation recorded by the shantelle Jimenez accurately reflects the services(s) I performed and decisions made by me. Authenticated by Swetha Brewer PA-C on 01/16/2023 13:52:38. IDanielle, personally scribed for Swetha Brewer PA-C on 01/16/2023 13:43:12. . Problem List/Past Medical History Ongoing At risk for falls BPH with urinary obstruction Elevated PSA Prostatitis Historical COPD (chronic obstructive pulmonary disease) education CVA (cerebrovascular accident) during surgery High blood pressure High cholesterol Procedure/Surgical History Colonoscopy, High blood pressure, High cholesterol. Medications albuterol 90 mcg/inh inhalation powder, Inhalation, q6hr amLODIPine 2.5 mg Tab, Oral, Daily budesonide-formoterol 160 mcg-4.5 mcg/inh Inh Aer w/adapter, Inhalation, BID Cialis 5 mg oral tablet, 5 mg= 1 tab(s), Oral, Daily, 11 refills gabapentin 300 mg Cap, Oral, TID losartan 100 mg Tab, Oral, Daily metoprolol 25 mg ER Tab, Oral, Daily omeprazole 40 mg Cap-DR, Oral, Daily simvastatin 20 mg Tab, Oral, Once a day (at bedtime) Allergies No Known Medication Allergies Social History Tobacco 10 or more cigarettes (1/2 pack or more)/day in last 30 days Tobacco Use:. Cigarettes, 01/16/2023 Family History Arthritis: Mother. Diabetes mellitus type 2: Father. Heart disease: Father. High cholesterol: Father. Immunizations Vaccine Date Status influenza virus vaccine, inactivated 08/31/2021 Recorded SARS-CoV-2 (COVID-19) mRNA BNT-162b2 vax 08/31/2021 Recorded SARS-CoV-2 (COVID-19) mRNA BNT-162b2 vax 02/17/2021 Recorded SARS-CoV-2 (COVID-19) mRNA BNT-162b2 vax 01/28/2021 Recorded Normal [facility] Comment on above: Result Comment: Elec tronically Signed By: SWETHA BREWER PA-C\.br\Date and Time Signed: 01/16/23 13:52 EDT\.br\Electronically Co-Signed By: Danielle Jimenez\.br\Date and Time Co-Signed: 01/16/23 13:44 EDT PSA, FREE AND TOTAL RATIOon 09-08-2022 % Free PSA 15.6 % Normal [facility] Comment on above: Result Comment: The table below lists the probability of prostate cancer for men with non-suspicious JLIL results and total PSA between 4 and 10 ng/mL, by patient age (Vane et al, KIERRA 1998, 279:1542). % Free PSA 50-64 yr 65-75 yr 0.00-10.00% 56% 55% 10.01-15.00% 24% 35% 15.01-20.00% 17% 23% 20.01-25.00% 10% 20% >25.00% 5% 9% Please note: Vane et al did not make specific recommendations regarding the use of percent free PSA for any other population of men. Performed By: #### P SAFREE #### [facility] [address] [place] [address] Dr. Mitali Torres Prostate specific Ag [Mass/Vol] 4.3 ng/mL Critically high 0.0-4.0 [facility] Comment on above: Result Comment: Tiara lea ECLDELILAH methodology. . According to the [employer], Serum PSA should decrease and remain at undetectable levels after radical prostatectomy. The AUA defines biochemical recurrence as an initial PSA value 0.2 ng/mL or greater followed by a subsequent confirmatory PSA value 0.2 ng/mL or greater. Values obtained with different assay methods or kits cannot be used interchangeably. Results cannot be interpreted as absolute evidence of the presence or absence of malignant disease. Performed By: #### P SAFREE #### [facility] [address] [address] [address] Mitali Torres PSA, Free 0.67 ng/mL Normal N/A [facility] Comment on above: Result Comment: Tiara lea ECLIA methodology. Performed By: #### P SAFREE #### [facility] [address] [address] [address] Mitali Torres Creatinine (Bld) [Mass/Vol]O rdered By: Med Parkinson on 06-05-2022 Creatinine [Mass/Vol] 0.8 mg/dL 0.6-1.3 [facility] Comment on above: ER/ESD physician is notified/shown all ISTAT results. Critical values may be confirmed by laboratory testing if deemed necessary by ER attending doctor. No Panel InformationOrdered By: Med Parkinson on 06-05-2022 POC Estimated GFR > 60 [facility] Comment on above: GFR estimated refere nce range: According to KDOQI guidelines, <60 ml/min/1.73m2 is sufficient to diagnose a patient with chronic kidney disease. POC Estimated GFR Non- Amer > 60 [facility] Vital Signs Date Time Vital Sign Value Performing Clinician Facility 07-16-2023 11:30-0400 Body height 175.26 cm Theresa Braden Other [facility] 07-16-2023 11:30-0400 Body mass index (BMI) [Ratio] 21.12 kg/m2 Theresa Braden Other [facility] Other 07-16-2023 11:30-0400 Body temperature 97.3 [degF] Theresa Braden Other [facility] Other 07-16-2023 11:30-0400 Body weight 64.86 kg Theresa Braden Other [facility] Other 07-16-2023 11:30-0400 Diastolic blood pressure 72 mm[Hg] Theresa Braden Other [facility] Other 07-16-2023 11:30-0400 SaO2% (BldA) [Mass fraction] 98 % Theresa Braden Other [facility] Other 07-16-2023 11:30-0400 Systolic blood pressure 116 mm[Hg] Theresa Braden Other [facility] Other 01-30-2023 09:23-0400 Diastolic blood pressure 95 mm[Hg] Nya Lue [facility] 01-30-2023 09:23-0400 Heart rate 63 /min Nya Lue [facility] 01-30-2023 09:23-0400 Systolic blood pressure 131 mm[Hg] Nya Lue [facility] 10-04-2022 08:24-0500 Diastolic blood pressure 80 mm[Hg] Nya Lue [facility] 10-04-2022 08:24-0500 Heart rate 60 /min Nya Lue [facility] 10-04-2022 08:24-0500 Systolic blood pressure 190 mm[Hg] Nya Lue [facility] 07-26-2022 11:03-0400 Blood Pressure Location Nya Lue [facility] 07-26-2022 11:03-0400 Diastolic blood pressure 121 mm[Hg] Nya Lue [facility] 07-26-2022 11:03-0400 Heart rate 60 /min Nya Lue [facility] 07-26-2022 11:03-0400 Systolic blood pressure 182 mm[Hg] Nya Lue [facility] 06-05-2022 10:45-0400 Body height 175.26 cm Med Parkinson Other [facility] Other 06-05-2022 10:45-0400 Body mass index (BMI) [Ratio] 22.15 kg/m2 Med Parkinson Other [facility] Other 06-05-2022 10:45-0400 Body temperature 97.5 [degF] Mde Parkinson Other [facility] Other 06-05-2022 10:45-0400 Body weight 68.04 kg Med Parkinson Other [facility] Other 06-05-2022 10:45-0400 Diastolic blood pressure 76 mm[Hg] Med Parkinson Other [facility] Other 06-05-2022 10:45-0400 SaO2% (BldA) [Mass fraction] 98 % Med Parkinson Other [facility] Other 06-05-2022 10:45-0400 Systolic blood pressure 11 mm[Hg] Med Parkinson Other [facility] Other 01-23-2022 10:00-0400 Body height 175.26 cm Theresa Rutisrrael Other [facility] Other 01-23-2022 10:00-0400 Body mass index (BMI) [Ratio] 26.58 kg/m2 Theresa Asiya Other [facility] Other 01-23-2022 10:00-0400 Body temperature 96 [degF] Theresa Braden Other [facility] Other 01-23-2022 10:00-0400 Body weight 81.65 kg Theresa Downeyisrrael Other [facility] Other 01-23-2022 10:00-0400 Diastolic blood pressure 78 mm[Hg] Theresa Braden Other [facility] Other 01-23-2022 10:00-0400 SaO2% (BldA) [Mass fraction] 97 % Theresa Braden Other [facility] Other 01-23-2022 10:00-0400 Systolic blood pressure 140 mm[Hg] Theresa Alstono Other [facility] Other 01-16-2022 10:00-0400 Body height 175.26 cm Theresa Braden Other [facility] Other 01-16-2022 10:00-0400 Body mass index (BMI) [Ratio] 25.25 kg/m2 Theresa Braden Other [facility] Other 01-16-2022 10:00-0400 Body temperature 98 [degF] Theresa Braden Other [facility] Other 01-16-2022 10:00-0400 Body weight 77.57 kg Theresa Braden Other [facility] Other 01-16-2022 10:00-0400 Diastolic blood pressure 72 mm[Hg] Theresa Braden Other [facility] Other 01-16-2022 10:00-0400 Respiratory rate 20 /min Theresa Braden Other [facility] Other 01-16-2022 10:00-0400 SaO2% (BldA) [Mass fraction] 98 % Theresa Braden Other [facility] Other 01-16-2022 10:00-0400 Systolic blood pressure 130 mm[Hg] Theresa Braden Other [facility] Other Encounters Encounter Date Encounter Type Care Provider Facility Start: 07-31-2023 End: 07-31-2023 ambulatory Eleazar Modi Facility:[facility] Start: 07-31-2023 End: 07-31-2023 ambulatory DO Eleazar Modi Work Phone: [facility] Work Phone: Start: 07-31-2023 End: 07-31-2023 Patient encounter procedure DO Eleazar Modi Work Phone: [facility] [address] Start: 07-16-2023 End: 07-16-2023 ambulatory Theresa Braden Other [facility] [employer] Other Start: 07-16-2023 Patient encounter procedure Theresa Downeyisrrael [facility] Start: 07-11-2023 End: 07-12-2023 ambulatory Nya Lloyd Facility:[facility] Start: 07-11-2023 End: 07-11-2023 Patient encounter procedure Nya Lloyd [facility] Start: 06-28-2023 End: 06-28-2023 ambulatory Eleazar aLra Joy Facility:[facility] Start: 06-28-2023 End: 06-28-2023 ambulatory DO Eleazar Modi Work Phone: [facility] Work Phone: Start: 06-28-2023 End: 06-28-2023 Patient encounter procedure DO Eleazar Modi Work Phone: [facility] Work Phone: Start: 01-30-2023 End: 01-31-2023 ambulatory Nya Lloyd Facility:[facility] Start: 01-30-2023 End: 01-30-2023 Patient encounter procedure Nya Lloyd [facility] Start: 01-16-2023 End: 01-17-2023 ambulatory SWETHA BREWER Facility:[facility] Start: 10-04-2022 End: 10-04-2022 Patient encounter procedure Nya Lloyd [facility] Start: 09-07-2022 End: 09-08-2022 ambulatory NYA LLOYD . Facility: Start: 07-26-2022 End: 07-26-2022 Patient encounter procedure Nya Lloyd [facility] Start: 06-05-2022 End: 06-05-2022 ambulatory Med Parkinson Other [facility] Other Start: 06-05-2022 Office outpatient vi sit 25 minutes Med Parkinson [facility] Start: 06-05-2022 End: 06-05-2022 Patient encounter procedure DO Eleazar Perezlauralacho Work Phone: [facility] Start: 01-24-2022 End: 01-24-2022 ambulatory Med Parkinson Other [facility] Other Start: 01-24-2022 Telephone encounter Med Parkinson [facility] Start: 01-23-2022 End: 01-23-2022 ambulatory Theresa Braden Other [facility] Other Start: 01-23-2022 Office outpatient vi sit 15 minutes Theresa Braden [facility] Start: 01-16-2022 End: 01-16-2022 ambulatory Theresa Braden Other [facility] Other Start: 01-16-2022 Office outpatient vi sit 15 minutes Theresa Braden [facility] Procedures Date Procedure Procedure Detail Performing Clinician Start: 06-28-2023 Computed tomography angiography of abdominal and/or pelvic blood vessel DO Eleazar Modi Work Phone: Start: 01-30-2023 Cystoscopy Nya Gabino Start: 06-05-2022 Computed tomography angiography of abdominal and/or pelvic blood vessel DO Eleazar Modi Work Phone: Colonoscopy Nya Lloyd Hypercholesterolemia (disorder) Nya Lloyd Hypertensive disorde r, systemic arterial (disorder) Nya Lloyd Plan of Treatment Date Care Activity Detail Author [facility] Immunizations Immunization Date Immunization Notes Care Provider Fa cili 08-31-2021 influenza virus vaccine, unspecified formulation Nya Lloyd [facility] 08-31-2021 SARS-CoV-2 (COVID-19 ) mRNA BNT-162b2 vax Nya Lloyd [facility] 02-17-2021 COVID-19 mRNA, Comirnaty (Pfizer) DO Eleazar Modi Work Phone: [facility] 01-28-2021 COVID-19 mRNA, Comirnaty (Pfizer) DO Eleazar Modi Work Phone: [facility] Payers Date Payer Category Payer Medicare [id number] 2022 Self-pay [id number] 1960 Unknown [id number] 1950 Unknown [id number] 1950 Unknown [id number] 1950 Unknown [id number] 1950 Unknown [id number] Medicare Medicare [id number] Medicare [place] [facility] PFFS [id number] Medicare [employer] [facility] PFFS [id number] Private Health Insurance [id number] Unknown [employer] [id number] Unknown [id number] Unknown [id number] Social History Date Type Detail Facility Sex Assigned At [facility] Other Start: 02-08-2022 Tobacco smoking stat NHIS Smoker (finding) [facility] Start: 1950 Sex Assigned At Male F [facility] Start: 07-26-2022 End: 01-30-2023 Tobacco smoking status Heavy tobacco smoker (finding) [facility] Tobacco smoking status Never [facility] Medical Equipment Procedure Code Equipment Code Equipment Origin al Text Equipment Identifier Dates Abdominal aorta endovascular stent-graft [id number] FDA Start: 02-08-2022 Abdominal aorta endovascular stent-graft [id number] FDA Start: 02-08-2022 Abdominal aorta endovascular stent-graft [id number] FDA Start: 02-08-2022 Functional Status Date Assessment Result Facility 01-30-2023 Functional Status N/A [facility] 10-04-2022 Functional Status N/A [facility] 07-26-2022 Functional Status N/A [facility] Clinical Notes 01-16-2022 to 07-16-2023 Note Date & Type Note Facility 07-16-2023 Evaluation note Encounter Date Diagnosis Assessment Notes Jul, Infrarenal abdominal aortic aneurysm (AAA) without rupture (ICD-10 - I71.43) We reviewed today's 1 year follow-up CT scan indicating AAA 4.3 cm in greatest diameter. This is improvement since 1 year ago where AAA measured 4.[address] shows endovascular repair with patent stent graft and the [place] aneurysmal sac appears to have decreased in size since his previous CT. There is no evidence of endoleak. At this juncture, we will continue to follow him along on an annual basis with routine surveillance duplex studies. He has a good appetite overall and has no abdominal complaints whatsoever. We will continue to follow him along and plan to see him here in the office next year with abdominal duplex studies. They know to call us in the meantime with any issues or concerns. Jul, Current smoker (ICD-10 - F17.200) Discussed health risk associated with tobacco smoking. Patient understands his risks and is unmotivated to quit. [facility] Other 03-28-2023 Evaluation + Plan note Diagnostic Tests Pending * PSA Total 01/30/23 [facility] 03-28-2023 Hospital Discharge instructions Patient Education 01/30/2023 10:15:44 Cystoscopy Cystoscopy Cystoscopy is a procedure that is used to help diagnose and sometimes treat conditions that affect the lower urinary tract. The lower urinary tract includes the bladder and the urethra. The urethra is the tube that drains urine from the bladder. Cystoscopy is done using a thin, tube-shaped instrument with a light and camera at the end (cystoscope). The cystoscope may be hard or flexible, depending on the goal of the procedure. The cystoscope is inserted through the urethra, into the bladder. Cystoscopy may be recommended if you have: Urinary tract infections that keep coming back. Blood in the urine (hematuria). An inability to control when you urinate (urinary incontinence) or an overactive bladder. Unusual cells found in a urine sample. A blockage in the urethra, such as a urinary stone. Painful urination. An abnormality in the bladder found during an intravenous pyelogram (IVP) or CT scan. Cystoscopy may also be done to remove a sample of tissue to be examined under a microscope (biopsy). Tell a health care provider about: Any allergies you have. All medicines you are taking, including vitamins, herbs, eye drops, creams, and tbev-qrs-sznxjhp medicines. Any problems you or family members have had with anesthetic medicines. Any blood disorders you have. Any surgeries you have had. Any medical conditions you have. Whether you are or may be . What are the risks? Generally, this is a safe procedure. However, problems may occur, including: Infection. Bleeding. Allergic reactions to medicines. Damage to other structures or organs. What happens before the procedure? Ask your health care provider about: ?Changing or stopping your regular medicines. This is especially important if you are taking diabetes medicines or blood thinners. ?Taking medicines such as aspirin and ibuprofen. These medicines can thin your blood. Do not take these medicines unless your health care provider tells you to take them. ?Taking qztz-jxk-ywcqzjm medicines, vitamins, herbs, and supplements. Follow instructions from your health care provider about eating or drinking restrictions. Ask your health care provider what steps will be taken to help prevent infection. These may include: ?Washing skin with a germ-killing soap. ?Taking antibiotic medicine. You may have an exam or testing, such as: ? X-rays of the bladder, urethra, or kidneys. ?Urine tests to check for signs of infection. Plan to have someone take you home from the hospital or clinic. What happens during the procedure? You will be given one or more of the following: ?A medicine to help you relax (sedative). ?A medicine to numb the area (local anesthetic). The area around the opening of your urethra will be cleaned. The cystoscope will be passed through your urethra into your bladder. Germ-free (sterile) fluid will flow through the cystoscope to fill your bladder. The fluid will stretch your bladder so that your health care provider can clearly examine your bladder spears. Your doctor will look at the urethra and bladder. Your doctor may take a biopsy or remove stones. The cystoscope will be removed, and your bladder will be emptied. The procedure may vary among health care providers and hospitals. What can I expect after the procedure? After the procedure, it is common to have: Some soreness or pain in your abdomen and urethra. Urinary symptoms. These include: ?Mild pain or burning when you urinate. Pain should stop within a few minutes after you urinate. This may last for up to 1 week. ?A small amount of blood in your urine for several days. ?Feeling like you need to urinate but producing only a small amount of urine. Follow these instructions at home: Medicines Take pega-eiu-mjhertz and prescription medicines only as told by your health care provider. If you were prescribed an antibiotic medicine, take it as told by your health care provider. Do notstop taking the antibiotic even if you start to feel better. General instructions Return to your normal activities as told by your health care provider. Ask your health care provider what activities are safe for you. Do not drive for 24 hours if you were given a sedative during your procedure. Watch for any blood in your urine. If the amount of blood in your urine increases, call your healthcare provider. Follow instructions from your health care provider about eating or drinking restrictions. If a tissue sample was removed for testing (biopsy) during your procedure, it is up to you to get your test results. Ask your health care provider, or the department that is doing the test, when yourresults will be ready. Drink enough fluid to keep your urine pale yellow. Keep all follow-up visits as told by your health care provider. This is important. Contact a health care provider if you: Have pain that gets worse or does not get better with medicine, especially pain when you urinate. Have trouble urinating. Have more blood in your urine. Get help right away if you: Have blood clots in your urine. Have abdominal pain. Have a fever or chills. Are unable to urinate. Summary Cystoscopy is a procedure that is used to help diagnose and sometimes treat conditions that affect the lower urinary tract. Cystoscopy is done using a thin, tube-shaped instrument with a light and camera at the end. After the procedure, it is common to have some soreness or pain in your abdomen and urethra. Watch for any blood in your urine. If the amount of blood in your urine increases, call your healthcare provider. If you were prescribed an antibiotic medicine, take it as told by your health care provider. Do notstop taking the antibiotic even if you start to feel better. This information is not intended to replace advice given to you by your health care provider. Make sure you discuss any questions you have with your health care provider. Document Released: 10/19/2001 Document Revised: 10/14/2019 Document Reviewed: 10/14/2019 [employer] Patient Education 2020 [employer]. Follow Up Care 01/16/2023 13:49:28 With:Gabino MARTINEZ, Nya Borjas, URL, [facility] Address: [address], [place] [address] [phone] When:Within 6 Month(s) Comments:w/ NEHEMIAH [facility] 03-28-2023 NoteUrology Cystoscopy Cystoscopy is a procedure that is used to help diagnose and sometimes treat conditions that affect the lower urinary tract. The lower urinary tract includes the bladder and the urethra. The urethra is the tube that drains urine from the bladder. Cystoscopy is done using a thin, tube-shaped instrument with a light and camera at the end (cystoscope). The cystoscope may be hard or flexible, depending on the goal of the procedure. The cystoscope is inserted through the urethra, into the bladder. Cystoscopy may be recommended if you have: ? Urinary tract infections that keep coming back. ? Blood in the urine (hematuria). ? An inability to control when you urinate (urinary incontinence) or an overactive bladder. ? Unusual cells found in a urine sample. ? A blockage in the urethra, such as a urinary stone. ? Painful urination. ? An abnormality in the bladder found during an intravenous pyelogram (IVP) or CT scan. Cystoscopy may also be done to remove a sample of tissue to be examined under a microscope (biopsy). Tell a health care provider about: ? Any allergies you have. ? All medicines you are taking, including vitamins, herbs, eye drops, creams, and iwpc-ugr-anwbhlv medicines. ? Any problems you or family members have had with anesthetic medicines. ? Any blood disorders you have. ? Any surgeries you have had. ? Any medical conditions you have. ? Whether you are or may be . What are the risks? Generally, this is a safe procedure. However, problems may occur, including: ? Infection. ? Bleeding. ? Allergic reactions to medicines. ? Damage to other structures or organs. What happens before the procedure? ? Ask your health care provider about: ? Changing or stopping your regular medicines. This is especially important if you are taking diabetes medicines or blood thinners. ? Taking medicines such as aspirin and ibuprofen. These medicines can thin your blood. Do not take these medicines unless your health care provider tells you to take them. ? Taking umfq-zia-vhypppd medicines, vitamins, herbs, and supplements. ? Follow instructions from your health care provider about eating or drinking restrictions. ? Ask your health care provider what steps will be taken to help prevent infection. These may include: ? Washing skin with a germ-killing soap. ? Taking antibiotic medicine. ? You may have an exam or testing, such as: ? X-rays of the bladder, urethra, or kidneys. ? Urine tests to check for signs of infection. ? Plan to have someone take you home from the hospital or clinic. What happens during the procedure? ? You will be given one or more of the following: ? A medicine to help you relax (sedative). ? A medicine to numb the area (local anesthetic). ? The area around the opening of your urethra will be cleaned. ? The cystoscope will be passed through your urethra into your bladder. ? Germ-free (sterile) fluid will flow through the cystoscope to fill your bladder. The fluid will stretch your bladder so that your health care provider can clearly examine your bladder spears. ? Your doctor will look at the urethra and bladder. Your doctor may take a biopsy or remove stones. ? The cystoscope will be removed, and your bladder will be emptied. The procedure may vary among health care providers and hospitals. What can I expect after the procedure? After the procedure, it is common to have: ? Some soreness or pain in your abdomen and urethra. ? Urinary symptoms. These include: ? Mild pain or burning when you urinate. Pain should stop within a few minutes after you urinate. This may last for up to 1 week. ? A small amount of blood in your urine for several days. ? Feeling like you need to urinate but producing only a small amount of urine. Follow these instructions at home: Medicines ? Take ttrx-usz-kkyyzpm and prescription medicines only as told by your health care provider. ? If you were prescribed an antibiotic medicine, take it as told by your health care provider. Do not stop taking the antibiotic even if you start to feel better. General instructions ? Return to your normal activities as told by your health care provider. Ask your health care provider what activities are safe for you. ? Do not drive for 24 hours if you were given a sedative during your procedure. ? Watch for any blood in your urine. If the amount of blood in your urine increases, call your health care provider. ? Follow instructions from your health care provider about eating or drinking restrictions. ? If a tissue sample was removed for testing (biopsy) during your procedure, it is up to you to getyour test results. Ask your health care provider, or the department that is doing the test, when your results will be ready. ? Drink enough fluid to keep your urine pale yellow. ? Keep all follow-up visits as told by your health care provider. This is importa (more content notincluded)...[facility]11-30-2022 Hospital Discharge instructions Patient Education 10/04/2022 09:37:57 Benign Prostatic Hyperplasia Benign Prostatic Hyperplasia Benign prostatic hyperplasia (BPH) is an enlarged prostate gland that is caused by the normal agingprocess and not by cancer. The prostate is a walnut-sized gland that is involved in the production of semen. It is located in front of the rectum and below the bladder. The bladder stores urine and the urethra is the tube that carries the urine out of the body. The prostate may get bigger as a man gets older. An enlarged prostate can press on the urethra. This can make it harder to pass urine. The build-up of urine in the bladder can cause infection. Back pressure and infection may progress to bladder damage and kidney (renal) failure. What are the causes? This condition is part of a normal aging process. However, not all men develop problems from this condition. If the prostate enlarges away from the urethra, urine flow will not be blocked. If it enlarges toward the urethra and compresses it, there will be problems passing urine. What increases the risk? This condition is more likely to develop in men over the age of 50 years. What are the signs or symptoms? Symptoms of this condition include: Getting up often during the night to urinate. Needing to urinate frequently during the day. Difficulty starting urine flow. Decrease in size and strength of your urine stream. Leaking (dribbling) after urinating. Inability to pass urine. This needs immediate treatment. Inability to completely empty your bladder. Pain when you pass urine. This is more common if there is also an infection. Urinary tract infection (UTI). How is this diagnosed? This condition is diagnosed based on your medical history, a physical exam, and your symptoms. Tests will also be done, such as: A post-void bladder scan. This measures any amount of urine that may remain in your bladder after you finish urinating. A digital rectal exam. In a rectal exam, your health care provider checks your prostate by putting a lubricated, gloved finger into your rectum to feel the back of your prostate gland. This exam detects the size of your gland and any abnormal lumps or growths. An exam of your urine (urinalysis). A prostate specific antigen (PSA) screening. This is a blood test used to screen for prostate cancer. An ultrasound. This test uses sound waves to electronically produce a picture of your prostate gland. Your health care provider may refer you to a specialist in kidney and prostate diseases (urologist). How is this treated? Once symptoms begin, your health care provider will monitor your condition (active surveillance or watchful waiting). Treatment for this condition will depend on the severity of your condition. Treatment may include: Observation and yearly exams. This may be the only treatment needed if your condition and symptoms are mild. Medicines to relieve your symptoms, including: ?Medicines to shrink the prostate. ?Medicines to relax the muscle of the prostate. Surgery in severe cases. Surgery may include: ?Prostatectomy. In this procedure, the prostate tissue is removed completely through an open incision or with a laparoscope or robotics. ?Transurethral resection of the prostate (TURP). In this procedure, a tool is inserted through the opening at the tip of the penis (urethra). It is used to cut away tissue of the inner core of the prostate. The pieces are removed through the same opening of the penis. This removes the blockage. ?Transurethral incision (TUIP). In this procedure, small cuts are made in the prostate. This lessens the prostate's pressure on the urethra. ?Transurethral microwave thermotherapy (TUMT). This procedure uses microwaves to create heat. The heat destroys and removes a small amount of prostate tissue. ?Transurethral needle ablation (TUNA). This procedure uses radio frequencies to destroy and remove a small amount of prostate tissue. ?Interstitial laser coagulation (ILC). This procedure uses a laser to destroy and remove a small amount of prostate tissue. ?Transurethral electrovaporization (TUVP). This procedure uses electrodes to destroy and remove a small amount of prostate tissue. ?Prostatic urethral lift. This procedure inserts an implant to push the lobes of the prostate away from the urethra. Follow these instructions at home: Take qelq-kur-hlfcnfq and prescription medicines only as told by your health care provider. Monitor your symptoms for any changes. Contact your health care provider with any changes. Avoid drinking large amounts of liquid before going to bed or out in public. Avoid or reduce how much caffeine or alcohol you drink. Give yourself time when you urinate. Keep all follow-up visits as told by your health care provider. This is important. Contact a health care provider if: You have unexplained back pain. Your symptoms do not get better with treatment. You develop side effects from the medicine you are taking. Your urine becomes very dark or has a bad smell. Your lower abdomen becomes distended and you have trouble passing your urine. Get help right away if: You have a fever or chills. You suddenly cannot urinate. You feel lightheaded, or very dizzy, or you faint. There are large amounts of blood or clots in the urine. Your urinary problems become hard to manage. You develop moderate to severe low back or flank pain. The flank is the side of your body between the ribs and the hip. These symptoms may represent a serious problem that is an emergency. Do not wait to see if the symptoms will go away. Get medical help right away. Call your local emergency services (911 in the [place] Do not drive yourself to the hospital. Summary Benign prostatic hyperplasia (BPH) is an enlarged prostate that is caused by the normal aging process and not by cancer. An enlarged prostate can press on the urethra. This can make it hard to pass urine. This condition is part of a normal aging process and is more likely to develop in men over the age of 50 years. Get help right away if you suddenly cannot urinate. This information is not intended to replace advice given to you by your health care provider. Make sure you discuss any questions you have with your health care provider. Document Released: 10/22/2006 Document Revised: 09/16/2019 Document Reviewed: 11/26/2017 [employer] Patient Education 2020 [employer]. Follow Up Care 07/26/2022 11:44:52 With:Gabino MARTINEZ, Nya Borjas URL, [facility] Address: When:3 months Comments:Fatimah f/u & [facility] 09-21-2022 Hospital Discharge instructions Patient Education 07/26/2022 11:41:57 Prostatitis Prostatitis Prostatitis is swelling or inflammation of the prostate gland. The prostate is a walnut-sized glandthat is involved in the production of semen. It is located below a man's bladder, in front of the rectum. There are four types of prostatitis: Chronic nonbacterial prostatitis. This is the most common type of prostatitis. It may be associatedwith a viral infection or autoimmune disorder. Acute bacterial prostatitis. This is the least common type of prostatitis. It starts quickly and isusually associated with a bladder infection, high fever, and shaking chills. It can occur at any age. Chronic bacterial prostatitis. This type usually results from acute bacterial prostatitis that happens repeatedly (is recurrent) or has not been treated properly. It can occur in men of any age but is most common among middle-aged men whose prostate has begun to get larger. The symptoms are not as severe as symptoms caused by acute bacterial prostatitis. Prostatodynia or chronic pelvic pain syndrome (CPPS). This type is also called pelvic floor disorder. It is associated with increased muscular tone in the pelvis surrounding the prostate. What are the causes? Bacterial prostatitis is caused by infection from bacteria. Chronic nonbacterial prostatitis may becaused by: Urinary tract infections (UTIs). Nerve damage. A response by the body s disease-fighting system (autoimmune response). Chemicals in the urine. The causes of the other types of prostatitis are usually not known. What are the signs or symptoms? Symptoms of this condition vary depending upon the type of prostatitis. If you have acute bacterialprostatitis, you may experience: Urinary symptoms, such as: ?Painful urination. ?Burning during urination. ?Frequent and sudden urges to urinate. ?Inability to start urinating. ?A weak or interrupted stream of urine. Vomiting. Nausea. Fever. Chills. Inability to empty the bladder completely. Pain in the: ?Muscles or joints. ?Lower back. ?Lower abdomen. If you have any of the other types of prostatitis, you may experience: Urinary symptoms, such as: ?Sudden urges to urinate. ?Frequent urination. ?Difficulty starting urination. ?Weak urine stream. ?Dribbling after urination. Discharge from the urethra. The urethra is a tube that opens at the end of the penis. Pain in the: ?Testicles. ?Penis or tip of the penis. ?Rectum. ?Area in front of the rectum and below the scrotum (perineum). Problems with sexual function. Painful ejaculation. Bloody semen. How is this diagnosed? This condition may be diagnosed based on: A physical and medical exam. Your symptoms. A urine test to check for bacteria. An exam in which a health care provider uses a finger to feel the prostate (digital rectal exam). A test of a sample of semen. Blood tests. Ultrasound. Removal of prostate tissue to be examined under a microscope (biopsy). Tests to check how your body handles urine (urodynamic tests). A test to look inside your bladder or urethra (cystoscopy). How is this treated? Treatment for this condition depends on the type of prostatitis. Treatment may involve: Medicines to relieve pain or inflammation. Medicines to help relax your muscles. Physical therapy. Heat therapy. Techniques to help you control certain body functions (biofeedback). Relaxation exercises. Antibiotic medicine, if your condition is caused by bacteria. Warm water baths (sitz baths). Sitz baths help with relaxing your pelvic floor muscles, which helpsto relieve pressure on the prostate. Follow these instructions at home: Take vtua-eky-emkvmov and prescription medicines only as told by your health care provider. If you were prescribed an antibiotic, take it as told by your health care provider. Do not stop taking the antibiotic even if you start to feel better. If physical therapy, biofeedback, or relaxation exercises were prescribed, do exercises as instructed. Take sitz baths as directed by your health care provider. For a sitz bath, sit in warm water that is deep enough to cover your hips and buttocks. Keep all follow-up visits as told by your health care provider. This is important. Contact a health care provider if: Your symptoms get worse. You have a fever. Get help right away if: You have chills. You feel nauseous. You vomit. You feel light-headed or feel like you are going to faint. You are unable to urinate. You have blood or blood clots in your urine. This information is not intended to replace advice given to you by your health care provider. Make sure you discuss any questions you have with your health care provider. Document Released: 10/19/2001 Document Revised: 01/04/2019 Document Reviewed: 07/12/2017 [employer] Patient Education 2020 [employer]. 07/26/2022 11:24:57 Benign Prostatic Hyperplasia Benign Prostatic Hyperplasia Benign prostatic hyperplasia (BPH) is an enlarged prostate gland that is caused by the normal agingprocess and not by cancer. The prostate is a walnut-sized gland that is involved in the production of semen. It is located in front of the rectum and below the bladder. The bladder stores urine and the urethra is the tube that carries the urine out of the body. The prostate may get bigger as a man gets older. An enlarged prostate can press on the urethra. This can make it harder to pass urine. The build-up of urine in the bladder can cause infection. Back pressure and infection may progress to bladder damage and kidney (renal) failure. What are the causes? This condition is part of a normal aging process. However, not all men develop problems from this condition. If the prostate enlarges away from the urethra, urine flow will not be blocked. If it enlarges toward the urethra and compresses it, there will be problems passing urine. What increases the risk? This condition is more likely to develop in men over the age of 50 years. What are the signs or symptoms? Symptoms of this condition include: Getting up often during the night to urinate. Needing to urinate frequently during the day. Difficulty starting urine flow. Decrease in size and strength of your urine stream. Leaking (dribbling) after urinating. Inability to pass urine. This needs immediate treatment. Inability to completely empty your bladder. Pain when you pass urine. This is more common if there is also an infection. Urinary tract infection (UTI). How is this diagnosed? This condition is diagnosed based on your medical history, a physical exam, and your symptoms. Tests will also be done, such as: A post-void bladder scan. This measures any amount of urine that may remain in your bladder after you finish urinating. A digital rectal exam. In a rectal exam, your health care provider checks your prostate by putting a lubricated, gloved finger into your rectum to feel the back of your prostate gland. This exam detects the size of your gland and any abnormal lumps or growths. An exam of your urine (urinalysis). A prostate specific antigen (PSA) screening. This is a blood test used to screen for prostate cancer. An ultrasound. This test uses sound waves to electronically produce a picture of your prostate gland. Your health care provider may refer you to a specialist in kidney and prostate diseases (urologist). How is this treated? Once symptoms begin, your health care provider will monitor your condition (active surveillance or watchful waiting). Treatment for this condition will depend on the severity of your condition. Treatment may include: Observation and yearly exams. This may be the only treatment needed if your condition and symptoms are mild. Medicines to relieve your symptoms, including: ?Medicines to shrink the prostate. ?Medicines to relax the muscle of the prostate. Surgery in severe cases. Surgery may include: ?Prostatectomy. In this procedure, the prostate tissue is removed completely through an open incision or with a laparoscope or robotics. ?Transurethral resection of the prostate (TURP). In this procedure, a tool is inserted through the opening at the tip of the penis (urethra). It is used to cut away tissue of the inner core of the prostate. The pieces are removed through the same opening of the penis. This removes the blockage. ?Transurethral incision (TUIP). In this procedure, small cuts are made in the prostate. This lessens the prostate's pressure on the urethra. ?Transurethral microwave thermotherapy (TUMT). This procedure uses microwaves to create heat. The heat destroys and removes a small amount of prostate tissue. ?Transurethral needle ablation (TUNA). This procedure uses radio frequencies to destroy and remove a small amount of prostate tissue. ?Interstitial laser coagulation (ILC). This procedure uses a laser to destroy and remove a small amount of prostate tissue. ?Transurethral electrovaporization (TUVP). This procedure uses electrodes to destroy and remove a small amount of prostate tissue. ?Prostatic urethral lift. This procedure inserts an implant to push the lobes of the prostate away from the urethra. Follow these instructions at home: Take [id number] and prescription medicines only as told by your health care provider. Monitor your symptoms for any changes. Contact your health care provider with any changes. Avoid drinking large amounts of liquid before going to bed or out in public. Avoid or reduce how much caffeine or alcohol you drink. Give yourself time when you urinate. Keep all follow-up visits as told by your health care provider. This is important. Contact a health care provider if: You have unexplained back pain. Your symptoms do not get better with treatment. You develop side effects from the medicine you are taking. Your urine becomes very dark or has a bad smell. Your lower abdomen becomes distended and you have trouble passing your urine. Get help right away if: You have a fever or chills. You suddenly cannot urinate. You feel lightheaded, or very dizzy, or you faint. There are large amounts of blood or clots in the urine. Your urinary problems become hard to manage. You develop moderate to severe low back or flank pain. The flank is the side of your body between the ribs and the hip. These symptoms may represent a serious problem that is an emergency. Do not wait to see if the symptoms will go away. Get medical help right away. Call your local emergency services (911 in the [place] Do not drive yourself to the hospital. Summary Benign prostatic hyperplasia (BPH) is an enlarged prostate that is caused by the normal aging process and not by cancer. An enlarged prostate can press on the urethra. This can make it hard to pass urine. This condition is part of a normal aging process and is more likely to develop in men over the age of 50 years. Get help right away if you suddenly cannot urinate. This information is not intended to replace advice given to you by your health care provider. Make sure you discuss any questions you have with your health care provider. Document Released: 10/22/2006 Document Revised: 09/16/2019 Document Reviewed: 11/26/2017 [employer] 2020 [employer] Follow Up Care 06/28/2022 10:03:36 With:Gabino MARTINEZ, NETTIE Pham, URO Address: When:3 months Comments:[facility] note* Encounter Date Diagnosis Assessment Notes Treatment Notes Treatment Clinical Notes Jun, Abdominal aortic aneurysm (AAA) 3.0 cm to 5.5 cm in diameter in male (ICD-10 - I71.4) Jun, Other [Abdominal aort ic aneurysm status postrepair This patient will come in [address] scan. If he continues to show reducing sac size to be followed with ultrasound thereafter. He understands and agrees with the plan. [facility] Other 03-22-2022 Evaluation note* Encounter Date Diagnosis Assessment Notes Treatment Notes Treatment Clinical Notes Jan, AAA (abdominal aortic aneurysm) without rupture (ICD-10 - I71.4) [facility] Other 03-21-2022 Evaluation note* Encounter Date Diagnosis Assessment Notes Treatment Notes Treatment Clinical Notes Jan, Abdominal aneurysm without mention of rupture (ICD-10 - I71.4) We reviewed recent CTA indicating fusiform type infrarenal abdominal aortic aneurysm which extends into the origin of the right common iliac artery measuring 5.8 cm greatest dimension. AAA handout page by page and all of their questions were addressed. Dr. Parkinson in room to further discuss TCAR procedure, risk, benefits and once again all her questions were addressed. Is concerned over not getting to have his beer and cigarettes while he is here in hospital. Patient states smokes greater than a pack a day and has had 3-6 beer a day for many years now. We will provide nicotine patch and we discussed allowing a couple beer a day, patient will bring this along with him. Patient would like to proceed with TCAR procedure at this time. We will get this scheduled in the near future. Patient and daughter state understanding of all discussion, agree with this plan, denies any questions. Jan, Consumes three beers daily (ICD-10 - Z78.9) Jan, Smoker (ICD-10 - F17.200) [facility] Other 03-14-2022 Evaluation note* Encounter Date Diagnosis Assessment Notes Treatment Notes Treatment Clinical Notes Jan, Abdominal aneurysm without mention of rupture (ICD-10 - I71.4) We discussed findings of today's abdominal ultrasound indicating AAA 5.91 cm in size. This is up from 6 months ago when it measured 4.6 cm. We will obtain abdominal CT imaging to further delineate size of AAA. We discussed possibility of EVAR procedure for repair which we will further discuss after obtaining results from CT imaging. He is accompanied by his daughter in the room today and all of their questions were addressed. He verbalizes understanding of all discussion, agrees with this plan, denies any questions. [facility] Other Evaluation + Plan note Future Appointments Appointment Date:10/04/2022 08:30:00 AM Scheduled Provider:Nya Lloyd MD Location:[facility] Appointment Type:URO Office Visit Diagnostic Tests Pending * PSA Free & Total 07/26/22 [facility] evaluation + Plan note Future Appointments Appointment Date:01/03/2023 08:00:00 AM Scheduled Provider:Nya Lloyd MD Location:[facility] Appointment Type:URO Office Visit [facility] evaluation noteNo assessment information available [facility] Work Phone: [facility] general Narrative - Reported* Type Description Date Medical History AAA Medical History Lumbar Disc Disorder Medical History PVD Medical History HTN Medical History ETOH abuse Medical History CVA Medical History CVOD Medical History DJD Surgical History Inguinal Hernia repair 1992 Surgical History tonsillectomy Hospitalization History See above Hospitalization History CVA 2009 [facility] Other Hospital course Narrative No data available for this section [facility] Hospital Discharge instructions No data available for this section [facility] progress note No data available for this section [facility] Chief Complaint and Reason for Visit Chief Complaint i71.4 Chief Complaint i71.4 Age Related Debility Advance Directives No Advanced Directives Records Found Advance Directive Response Recorded Date/ Time Advance Directives No September 11, 2018 1:33pm Summary Purpose Family History No Family History Records Found Additional Source Comments REASON FOR VISIT (unrecogniz ed section and content) VASC 6 MONTH FU; ABDOMINAL U LTRASOUND 9ACT SCAN FOLLOW UP; [facility] 01/20No InformationVASC 3 MONTH FOLLOW UP; [facility], Follow-up after PEVAR1 YR F.U; [facility] [place] 06/28 Care Teams (unrecognized sec tion and content) Team Status: Active Member Role Status Dates Eleazar Modi , DO Primary Care Provider Active Team Status: Inactive Member Role Status Dates Eleazar Modi , DO Primary Care Provider Active Med Parkinson MD Attending Provider Active Team Status: Inactive Member Role Status Dates Eleazar Modi , Primary Care Provider, Attending Karan loving Active Goals (unrecognized section and content) Goals may be documented in a n alternate section (unrecognized sect ion and content) No Status Records FoundNo Status Records FoundNo Status Records Found INFORMATION SOURCE (unrecogn ized section and content) DATE CREATED AUTHOR 10/06/2022 [facility] DATE CREATED AUTHOR AUTHOR'S ORGANIZ ATION 08/23/2023 [facility] DATE CREATED AUTHOR AUTHOR'S ORGANIZ ATION 10/04/2023 [facility] FOR RECORDS PERTAINING TO PATIENTS WHO ARE OR HAVE BEEN ENROLLED IN A CHEMICAL DEPENDENCY/SUBSTANCEABUSE PROGRAM, SOME INFORMATION MAY BE OMITTED. This clinical summary was aggregated from multiple sources. Caution should be exercised in using it in the provision of clinical care. This summary normalizes information from multiple sources, and as a consequence, information in this document may materially change the coding, format and clinical context of patient data. In addition, data may be omitted in some cases. CLINICAL DECISIONS SHOULD BE BASED ON THE PRIMARY CLINICAL RECORDS. [employer] provides no warranty or guarantee of the accuracy or completeness of information in this document.
[2024-07-02 15:24] LABS: INR 1.03; Prothrombin Time 10.9 sec (9.0-11.6)
[2024-07-02 15:29] LABS: Alanine Aminotransferase 18 U/L (16-63); Albumin Level 3.4 g/dL (3.4-5.0); Alkaline Phosphatase 49 U/L (46-116); Anion Gap 11.9; Aspartate Amino Transferase 24 U/L (15-37); Bilirubin Total 0.8 mg/dL (0.2-1.0); Calcium 8.9 mg/dL (8.5-10.1); Carbon Dioxide 28.3 mmol/L (21.0-32.0); Chloride 104 mmol/L (98-107); Estimated GFR (African America >60 (>=60); Estimated GFR (Non-African Ame 55 (>=60); Globulin 3.3 g/dL; Glucose 99 mg/dL (74-106); Potassium 3.2 mmol/L (3.5-5.1); Sodium 141 mmol/L (136-145); Total Protein 6.7 g/dL (6.4-8.2)
[2024-07-02 15:34] LABS: Lactate/Lactic Acid 2.4 mmol/L (0.4-2.0)
[2024-07-02 15:35] LABS: Ethanol 24 mg/dL; Magnesium 2.2 mg/dL (1.8-2.4); Thyroid Stimulating Hormone 0.949 uIU/mL (0.358-3.740)
[2024-07-02 15:37] LABS: Troponin I High Sensitivity 350.8 pg/mL (4.0-76.1)
[2024-07-02] MEDS: ASPIRIN 81 MG TAB.CHEW 162 MG PO (16:27)
[2024-07-02] MEDS: ENOXAPARIN SODIUM 100 MG/ML SYRINGE 65 MG SUBQ (16:28)
[2024-07-02 17:16] LABS: Lactate/Lactic Acid 2.2 mmol/L (0.4-2.0); Troponin I High Sensitivity 391.5 pg/mL (4.0-76.1)
== END 2024-07-02 18:34 | disposition short-term general hospital (02) ==
PROVIDERS: Physician Assistant; Emergency Provider Emergency Medicine
DX: I21.4 Non-ST elevation (NSTEMI) myocardial infarction (principal); R55 Syncope and collapse; Z86.73 Personal history of transient ischemic attack (TIA), and cerebral infarction without residual deficits; I10 Essential (primary) hypertension
CPT/HCPCS: 36415; 70450; 71045; 72125; 80053; 80307; 80320; 82800; 83605; 83735; 83880; 84443; 84484; 85025; 85610; 93005; 96372; 99285; J1650

== ENCOUNTER 2024-09-10 19:35 | Emergency (ER) | payer OTHER, SELFPAY ==
[2024-09-10 19:39] VITALS: BP 163/86; PULSE 69; TEMP 36.8; O2SAT 96
--- OUTSIDE RECORDS SUMMARY | 2024-09-10 19:40 | XMS_ITS | CCD ---
Author Organization [facility] Care Team Providers Care Fiber Optic Assembler Name Role Phone Theresa Braden Unavailable Med Parkinson Unavailable DO Eleazar Modi Primary Care Provider [phone] MD Med Parkinson Attending Provider ELEAZAR MODI Primary Care Physician [phone] NYA MERCADO Admitting Unavailable NYA MERCADO Attending Unavailable DR CECELIA NONE LISTED Primary Care Unavaila ble NYA MERCADO Consulting Unavailable DO Eleazar Modi Primary Care Provider MD Med Parkinson Attending Provider MD Med Parkinson Attending Provider [phone] DO Eleazar Modi Attending Provider Nya Lloyd. Attending Unavailable SWETHA BREWER Attending Unavailable Nya Lloyd Attending Unavailable DO Eleazar Modi Primary Care Provider DO Serge Mckeon Admit Provider DO Serge Mckeon Attending Provider [phone] MD Hamzah Cardona Referring Provider [phone] MD Cruz Blue Other Provider [phone] GALILEO aPce Other Provider MD Chela Love Other Provider DO Didi Stovall Other Provider Eleazar Modi Admitting Unavailable Eleazar Modi Primary Care Unavailable Eleazar Modi Attending Unavailable Hamzah Cardona Referring Unavailable Serge Mckeon Admitting Unavailable Serge Mckeon Attending Unavailable Eleazar Modi Primary Care Unavailable Cruz Blue Consulting Unavailable Miguel A Pace Consulting Unavailable Asaad, Imad Consulting Unavailable Didi Stovall Consulting Unavailable Allergies Allergy Classification Reported Allergen(s) Allergy Type Date of Onset Reaction(s) Facility (10 sources) Lisinopril Drug Allergy 2 Unknown, throat itching [facility] (1 source) No Known Medication Allergies; Translations: [No Known Medication Allergies] Propensity to adverse reactions (disorder) [facility] Repository (1 source) atorvastatin Drug Allergy 4 Unknown Reaction [facility] (2 sources) atorvastatin; Translations: [atorvastatin] Drug Allergy 4 Muscle Pain [facility] (1 source) Lisinopril Drug Allergy 4 [facility] Repository Medications Current Medications Medication Drug Class(es) [...] hrs Active amLODIPine 2.5 mg oral tablet (14 sources) Dihydropyridine Calcium Channel Cookie Start: 11-19-2019 take 2.5 mg by mouth once daily Amlodipine Active 2.5 MG PO Daily November 19, 2019 1:00am aspirin 81 mg chewable tablet (20 sources) Platelet Aggregation Inhibitor, Nonsteroidal Anti-inflammatory Drug Start: 07-04-2024 take 1 tablet by mouth once daily Aspirin (Children's Aspirin) 81 mg Tablet,Chewable Active 81 MG PO Daily 0 July 04, 2024 12:00am Start: 11-19-2019 End: 07-04-2024 take 325 mg by mouth once daily Aspirin Discontinued 325 MG PO Daily November 19, 2019 1:00am July 04, 2024 3:08pm Start: 11-19-2019 End: 09-15-2021 take 81 mg by mouth once daily Aspirin Discontinued 81 MG PO Daily August 18, 2021 12:00am September 15, 2021 9:13am Budesonide (4 sources) Corticosteroid Budesonide Activ e budesonide-formoter ol 160 mcg-4.5 mcg/inh Inh Aer w/adapter (4 sources) Start: 2 take 1 puff(s) by inhalation twice daily budesonide-formote rol 160 mcg-4.5 mcg/inh Inh Aer w/adapter puff(s), Inhalation, BID, Refill(s) 0 Start Date: 07/26/22 Status: Ordered gabapentin 100 mg oral capsule (12 sources) Anti-epileptic Agent Start: 4 take 300 mg by mouth twice daily Gabapentin Active 300 MG PO Twice daily July 17, 2024 12:00am Start: 07-02-2024 End: 07-17-2024 take 1 capsule by mouth three times daily Gabapentin Discontinued 200 MG PO Three times daily July 02, 2024 12:00am July 17, 2024 8:47am Free[employer]Si capsule Orally three times a day; Note: Source Status: Taking; Provider: Asiya Cardenas ( ) Start: 07-26-2022 take 1 mg by mouth t hree times daily gabapentin 300 mg Cap mg cap(s), Oral, TID, Refills(s) 0 Start Date: 07/26/22 Status: Ordered take 1 capsule by mo ut every eight hours Gabapentin 100 MG 1 capsule Orally three times a day Active take 1 capsule by mo ut every twenty-four hours Gabapentin 300 MG 1 capsule Orally Once a day Active losartan potassium 100 mg oral tablet (14 sources) Angiotensin 2 Receptor Cookie Start: 11-19-2019 take 100 mg by mouth once daily Losartan Active 100 MG PO Daily November 19, 2019 1:00am meloxicam 15 mg oral tablet (4 sources) Nonsteroidal Anti-inflammatory Drug take 1 tablet by mouth every twenty-four hours Meloxicam 15 MG 1 tablet Orally Once a day Active 24 hr metoprolol succinate 25 mg extended release oral tablet (14 sources) beta-Adrenergic Cookie Start: 07-26-2022 take 1 mg by mouth once daily metoprolol 25 mg ER Tab mg tab(s), Oral, Daily, Refills(s) 0 Start Date: 07/26/22 Status: Ordered Start: 11-19-2019 take 25 mg by mouth twice janet y Metoprolol Tartrate Active 25 MG PO Twice daily November 19, 2019 1:00am take 1 capsule by [facility] once daily Metoprolol Succinate 25 MG 1 capsule Orally Once a day Active 24 hr mirabegron 50 mg extended release oral tablet (2 sources) beta3-Adrenergic Agonist Start: 01-30-2023 take 1 tablet by mouth once daily mirabegron 50 mg oral tablet, extended release 50 mg = 1 tab(s), Oral, Daily, # 30 tab(s), Refills(s) 6, Pharmacy: [id number], 175, cm, 01/30/23 9:40:00 EDT, Height/Length Dosing, 73, kg, 01/30/23 9:40:00 EDT, Weight Dosing Start Date: 01/30/23 Status: Ordered omeprazole 40 mg delayed release oral capsule (14 sources) Proton Pump Inhibitor Start: 07-17-2024 take 40 mg by mouth once daily Omeprazole Active 40 MG PO Daily July 17, 2024 8:47am Start: 07-26-2022 take 1 mg by mouth once daily omeprazole 40 mg Cap-DR mg cap(s), Oral, Daily, Refills(s) 0 Start Date: 07/26/22 Status: Ordered Start: 08-18-2021 End: 07-17-2024 take 40 mg by mouth twice daily Omeprazole Discontinued 40 MG PO Twice daily 168 84 August 18, 2021 12:00am July 17, 2024 8:49am Omeprazole Activ e Prostate Health - (5 sources) Prostate Health - as directed Orally Active simvastatin 40 mg oral tablet (15 sources) HMG-CoA Reductase Inhibitor Start: take 40 mg by mouth once daily in the evening Simvastatin Active 40 MG PO Every evening July 17, 2024 8:48am Start: 07-26-2022 take 1 mg by mouth o nce daily at bedtime simvastatin 20 mg Tab mg tab(s), Oral, Once a day (at bedtime), Refills(s) 0 Start Date: 07/26/22 Status: Ordered Start: 11-19-2019 End: 07-17-2024 take 20 mg by mouth once daily in the evening Simvastatin Discontinued 20 MG PO Every evening November 19, 2019 1:00am July 17, 2024 8:49am take 1 tablet by molly th every twenty-four hours Simvastatin 40 MG 1 tablet in the evening Orally Once a day Active sulfamethoxazole 800 mg / trimethoprim 160 mg oral tablet (1 source) Dihydrofolate Reductase Inhibitor Antibacterial, Sulfonamide Antimicrobial Start: 07-26-2022 End: 09-06-2022 Bactrim DS 800 mg-160 mg Tab 1 tab(s), Oral, q12hr for 6 week(s), 84 tab(s), Refill(s) 0, [id number], 175, cm, 07/26/22 11:04:00 EDT, Height/Length Dosing, 73, kg, 07/26/22 11:04:00 EDT, Weight Dosing Start Date: 07/26/22 Stop Date: 09/06/22 Status: Ordered super beta prostate tab (1 source) Start: 07-17-2024 take 1 tablet by mouth once daily super beta prostate tab Active 1 CAP PO Daily July 17, 2024 12:00am tadalafil 5 mg oral tablet (1 source) Phosphodiesterase 5 Inhibitor Start: 10-04-2022 take 1 tablet by mouth once daily Cialis 5 mg oral tablet 5 mg = 1 tab(s), Oral, Daily, # 30 tab(s), Refills(s) 11, Pharmacy: [id number], 175, cm, 10/04/22 8:33:00 EST, Height/Length Dosing, 73, kg, 10/04/22 8:33:00 EST, Weight Dosing Start Date: 10/04/22 Status: Ordered Completed/Discontinued Medications Medication Drug Class(es) Dates Sig (Normalized) Sig (Original) cholecalciferol 0.05 mg oral tablet (8 sources) Vitamin D Start: 11-19-2019 End: 09-15-2021 take 2000 [IU] by mouth once daily Cholecalciferol (Vitamin D3) Discontinued 2000 UNIT PO Daily November 19, 2019 1:00am September 15, 2021 9:14am take 1 tablet by molly th every twenty-four hours Vitamin D3 10 MCG (400 UNIT) 1 tablet Orally Once a day Not-Taking Super Beta Prostate Tab (5 sources) Start: 11-19-2019 End: 07-17-2024 take 1 tablet by mouth once daily Super Beta Prostate Tab Discontinued 1 TAB PO Daily November 19, 2019 1:00am July 17, 2024 8:48am Start: 11-19-2019 take 1 tablet by mouth once da nika Super Beta Prostate Tab Active 1 TAB PO Daily November 19, 2019 1:00am thiamine 50 mg oral tablet (10 sources) Start: 01-25-2022 End: 07-04-2024 take 50 mg by mouth once daily Thiamine Hcl (Vitamin B1) Discontinued 50 MG PO Daily January 25, 2022 12:00am July 04, 2024 3:08pm Start: 11-19-2019 End: 09-15-2021 take 100 mg by mouth once daily Thiamine Hcl (Vitamin B1) Discontinued 100 MG PO Daily November 19, 2019 1:00am September 15, 2021 9:15am Vitamin D3 10 MCG (400 UNIT) (1 source) take 1 tablet by molly th once daily Vitamin D3 10 MCG (400 UNIT) 1 tablet Orally Once a day Not-Taking Problems Active Problems Problem Classification Problem Date Documented Date Episodic/Chronic Acute myocardial infarction (5 sources) Myocardial infarction; Translations: [Non-ST elevation (NSTEMI) myocardial infarction] Onset: 07-02-20 24 07-02-2024 Chronic Aortic; peripheral; and visceral artery aneurysms (14 sources) Abdominal aortic aneurysm without rupture; Translations: [Abdominal aortic aneurysm, without rupture] Onset: 01-17-20 Resolved : 06-05-20 Chronic Complications of surgical procedures or medical care (4 sources) CVA (cerebrovascular accident) during surgery 07-26-2022 Episodic Digestive congenital anomalies (5 sources) Terminal esophageal web; Translations: [Esophageal web] Chronic Disorders of lipid metabolism (4 sources) Hypercholesterolemia 07-26-2022 Chronic Esophageal disorders (17 sources) Gastroesophageal reflux disease; Translations: [Gastro-esophageal reflux disease without esophagitis] 07-15-2024 Chronic Essential hypertension (4 sources) Hypertensive disorder 07-26-2022 Chronic Hyperplasia of prostate (7 sources) Benign prostatic hypertrophy with outflow obstruction; Translations: [Benign prostatic hyperplasia with lower urinary tract symptoms] Onset: 07-26-20 Chronic Inflammatory conditions of male genital organs (7 sources) Prostatitis; Translations: [Inflammatory disease of prostate, unspecified] Onset: 07-26-20 Episodic Other diseases of bladder and urethra (1 source) Detrusor overactivity; Translations: [Overactive bladder] Onset: 07-10-20 Chronic Other diseases of bladder and urethra (1 source) Overactive bladder 07-10-2023 Chronic Other diseases of kidney and ureters (1 source) Urinary tract obstruction; Translations: [Other obstructive and reflux uropathy] Onset: 01-31-20 Episodic Other gastrointestinal disorders (2 sources) Dysphagia; Translations: [Dysphagia, unspecified] 07-04-2024 Episodic Other gastrointestinal disorders (3 sources) Dysphagia, unspecified; Translations: [Dysphagia, unspecified] Onset: 07-02-2007-04-2024 Episodic Other nervous system disorders (5 sources) Unsteady gait; Translations: [Unsteadiness on feet] Episodic Other screening for suspected conditions (not mental disorders or infectious disease) (11 sources) Raised prostate specific antigen; Translations: [Elevated prostate specific antigen [PSA]] Onset: 07-26-20 Episodic Spondylosis; intervertebral disc disorders; other back problems (5 sources) Inflammation of sacroiliac joint; Translations: [Sacroiliitis, not elsewhere classified] Chronic Spondylosis; intervertebral disc disorders; other back problems (5 sources) Degenerative lumbar spinal stenosis; Translations: [Spinal stenosis, lumbar region without neurogenic claudication] Episodic Substance-related disorders (14 sources) Smoker; Translations: [Nicotine dependence, unspecified, uncomplicated] Onset: 01-24-20 Resolved : 01-24-20 Chronic Comment on above: Added secondary to d ocumentation in Social History. Syncope (5 sources) Syncope; Translations: [Syncope and collapse] 11-19-2019 Episodic Unclassified (1 source) Age-related physical debility; Translations: [Age-related physical debility] Onset: 07-31-20 Past or Other Problems Problem Classification Problem Date Documented Da te Episodic/Chronic Residual codes; unclassified (1 source) Other specified health status Onset: 01-23-2022 Resolved: 01-23-2022 Episodic Unclassified (4 sources) Education about chronic obstructive pulmonary disease 07-26-2022 Unclassified (1 source) Infrarenal abdominal aortic aneurysm (AAA) without rupture I71.43 Results Test Name Value Interpretation Reference Range Facility Basic Metabolic Panelon 06-07 Creatinine Clr Calc Pharmacy 53.06 Normal [facility] Comment on above: Performed By: #### B MP, MG #### [place] [address] [place] GFR/1.73 sq M.predicted MDRD (S/P/Bld) [Vol rate/Area] mL/min/{1.73_m2} Normal [facility] Comment on above: Performed By: #### B SUSAN, MG #### [place] [address] [place] Calcium [Mass/volume] in Ser um or PlasmaOrdered By: Serge Mckeon on 07-04-2024 Calcium [Mass/Vol] 8.3 mg/dL Low 8.6-10.3 [facility] Comment on above: Performed By: #### B SUSAN, MG #### [place] [address] [place] Carbon dioxide, total [Moles /volume] in Serum or PlasmaOrdered By: Serge Mckeon on 07-04-2024 CO2 [Moles/Vol] 24.5 mmol/L Normal 21.0-31.0 [facility] Comment on above: Performed By: #### B MP, MG #### [place] [id number] [place] Chloride [Moles/volume] in S raffaele or PlasmaOrdered By: Serge Mckeon on 07-04-2024 Chloride [Moles/Vol] 106 mmol/L Normal 98-107 [facility] Comment on above: Performed By: #### B MP, MG #### [place] [id number] [place] Creatinine [Mass/volume] in Serum or PlasmaOrdered By: Serge Mckeon on 07-04-2024 Creatinine [Mass/Vol] 1.06 mg/dL Normal 0.70-1.30 [facility] Comment on above: Performed By: #### B MP, MG #### [address] Glucose [Mass/volume] in Ser um or PlasmaOrdered By: Serge Mckeon on 07-04-2024 Glucose [Mass/Vol] 100 mg/dL Normal 70-100 [facility] Comment on above: ADA recommended refe rence rangeRandom Glucose Reference Range is dependent on time and content of last meal. Glucose of more than 200 mg/dL in a nonstressed, ambulatory subject supports the diagnosis of Diabetes Mellitus. Result Comment: [place] om Glucose Reference Range is dependent on time and content of last meal. Glucose of more than 200 mg/dL in a nonstressed, ambulatory subject supports the diagnosis of Diabetes Mellitus. ADA recommended reference range Performed By: #### B MP, MG #### [facility] [address] [place] [address] Magnesium [Mass/volume] in S raffaele or PlasmaOrdered By: Serge Mckeon on 07-04-2024 Magnesium [Mass/Vol] 1.9 mg/dL Normal 1.9-2.7 [facility] Comment on above: Result Comment: PERF ORMED BY: [place] [address] PATHOLOGIST DENTAL ASSISTANT TEACHER IAN LA M.D. Performed By: #### B MP, MG #### [address] NM mahamed perf SPECT rest stron 07-04-2024 NM mahamed perf SPECT rest str [facility] [place] [address] Nuclear Medicine Report Signed Patient: Kirstie Campos MR#: [id number] 6 : 1950 Acct:[id number] Age/Sex: 74 / M ADM Date: 07/02/24 Loc: Room: [address] [place] [address] Type: ADM IN Attending Dr: Serge Mckeon DO Copies to: MD Serge Argueta, DO Goodson M Tann, MD Ordering Provider: Hamzah Cardona MD Date of Service: 07/04/24 NM/NM mahamed perf SPECT rest str: NSTEMI/Syncope NUCLEAR MYOCARDIAL PERFUSION DATE OF PROCEDURE: 07/04/2024 ATTENDING SALARY AND WAGE ADMINISTRATOR: Dr. Benjie Robert REQUESTING PHYSICIAN: Dr. Cardona PROCEDURE: The patient received a stress dose of Lexiscan and was then injected with 18.4 millicuries of Technetium 99M Sestamibi. For rest images the patient was injected with 6.5 millicuries of Technetium 99M Sestamibi. FINDINGS: The raw cine images were reviewed. The post stress and rest perfusion images were reviewed as well as the computer quantification.? There is a moderate size, mild intensity inferior wall defect present at rest, but larger in size during stress, concerning for infarct zone with palmira-infarct ischemia. Given normal inferior wall motion, cannot rule out diaphragmatic attenuation. On the gated portion of the study, the overall ejection fraction calculated at 56%.?Uniform thickening indicative of normal wall motion. TID score 1.03 is within normal limits. NM/NM mahamed perf SPECT rest str IMPRESSION: 1. SPECT Sestamibi myocardial perfusion study is abnormal. Perfusion defect concerning for inferior wall infarct with palmira-infarct ischemia. Cannot rule out diaphragmatic attenuation. 2. Normal wall motion. 3. Normal left ventricular systolic function. LVEF is 56%.? Impression dictated by: Benjie Robert M.D.07/04/2024 2:03 PM Dictation Location: [place] [address] Transcribed By: ANNELISE 07/04/24 1403 Dictated By: Benjie Robert MD 07/04/24 1357 Signed By: 07/04/24 1403 Normal [facility] No Panel InformationOrdered By: Serge Mckeon on 07-04-2024 Estimated GFR (CKD-EPI) > 60.0 mL/Min [facility] Creatinine Clearance (Chem 53.06 [facility] Potassium [Moles/volume] in Serum or PlasmaOrdered By: Serge Mckeon on 07-04-2024 Potassium [Moles/Vol] 3.7 mmol/L Normal 3.5-5.1 [facility] Comment on above: Performed By: #### B MP, MG #### [address] Serum or plasma anion gap de terminationOrdered By: Serge Mckeon on 07-04-2024 Anion gap [Moles/Vol] 9.2 mmol/L Normal 6.0-15.0 [facility] Comment on above: Performed By: #### B MP, MG #### [address] Sodium [Moles/volume] in Ser um or PlasmaOrdered By: Serge Mckeon on 07-04-2024 Sodium [Moles/Vol] 136 mmol/L Normal 136-145 [facility] Comment on above: Performed By: #### B MP, MG #### [address] Urea nitrogen [Mass/volume] in Serum or PlasmaOrdered By: Serge Mckeon on 07-04-2024 Urea nitrogen [Mass/Vol] 21 mg/dL Normal 7-25 [facility] Comment on above: Performed By: #### B MP, MG #### [address] Automated basophil %Ordered By: Serge Mckeon on 07-03-2024 Basophils/100 WBC (Bld) 0.6 % Normal . [facility] Comment on above: Performed By: #### C K, HS TROP #### [address] Automated basophil countOrde red By: Serge Mckeon on 07-03-2024 Basophils (Bld) [#/Vol] 0.1 10*3/uL Normal 0.0-0.2 [facility] Comment on above: Result Comment: PERF ORMED BY: [place] [address] PATHOLOGIST DENTAL ASSISTANT TEACHER IAN LA M.D. Performed By: #### C K, HS TROP #### [address] Automated blood monocyte cou ntOrdered By: Serge Mckeon on 07-03-2024 Monocytes (Bld) [#/Vol] 0.9 10*3/uL High 0.0-0.8 [facility] Comment on above: Performed By: #### C Jennie, HS TROP #### [address] Automated eosinophil %Ordere d By: Serge Mckeon on 07-03-2024 Eosinophils/100 WBC (Bld) 1.8 % Normal . [facility] Comment on above: Performed By: #### C K, HS TROP #### [address] Automated eosinophil countOr dered By: Serge Mckeon on 07-03-2024 Eosinophils (Bld) [#/Vol] 0.2 10*3/uL Normal 0.0-0.45 [facility] Comment on above: Performed By: #### India Schneider, HS TROP #### [address] Automated monocyte %Ordered By: Serge Mckeon on 07-03-2024 Monocytes/100 WBC (Bld) 9.9 % Normal . [facility] Comment on above: Performed By: #### C K, HS TROP #### [address] Automated neutrophil %Ordere d By: Serge Mckeon on 07-03-2024 Neutrophils/100 WBC (Bld) 65.4 % Normal . [facility] Comment on above: Performed By: #### C K, HS TROP #### [address] Bacteria [Presence] in Urine by AutomatedOrdered By: Serge Mckeon on 07-03-2024 Bacteria Auto Ql (U) None seen [HPF] None Seen [facility] Basic Metabolic Panelon 06-06 Anion gap [Moles/Vol] 10.4 mmol/L Normal 6.0-15.0 [facility] Comment on above: Performed By: #### C K, HS TROP #### [place] [id number] [place] Calcium [Mass/Vol] 8.3 mg/dL Low 8.6-10.3 [facility] Comment on above: Performed By: #### C K, HS TROP #### [address] Chloride [Moles/Vol] 111 mmol/L High 98-107 [facility] Comment on above: Performed By: #### C K, HS TROP #### [address] CO2 [Moles/Vol] 23.3 mmol/L Normal 21.0-31.0 [facility] Comment on above: Performed By: #### C K, HS TROP #### [address] Creatinine [Mass/Vol] 1.33 mg/dL High 0.70-1.30 [facility] Comment on above: Performed By: #### C K, HS TROP #### [place] [address] [place] Creatinine Clr Calc Pharmacy 42.83 Normal [facility] Comment on above: Performed By: #### C K, HS TROP #### [place] [address] [place] GFR/1.73 sq M.predicted MDRD (S/P/Bld) [Vol rate/Area] 55.742 mL/min/{1.73_m2} Normal [facility] Comment on above: Performed By: #### C K, HS TROP #### [address] Glucose [Mass/Vol] 95 mg/dL Normal 70-100 [facility] Comment on above: Result Comment: [place] Glucose Reference Range is dependent on time and content of last meal. Glucose of more than 200 mg/dL in a nonstressed, ambulatory subject supports the diagnosis of Diabetes Mellitus. ADA recommended reference range Performed By: #### C K, HS TROP #### [address] Potassium [Moles/Vol] 3.7 mmol/L Normal 3.5-5.1 [facility] Comment on above: Performed By: #### C K, HS TROP #### [place] [address] [place] Sodium [Moles/Vol] 141 mmol/L Normal 136-145 [facility] Comment on above: Performed By: #### C K, HS TROP #### [place] [address] [place] Urea nitrogen [Mass/Vol] 29 mg/dL High 7-25 [facility] Comment on above: Performed By: #### C K, HS TROP #### [address] Bilirubin Test strip Ql (U)O rdered By: Serge Mckeon on 07-03-2024 Bilirubin Ql (U) Negative Negative [facility] Color of Urine by AutoOrdere d By: Serge Mckeon on 07-03-2024 Color (U) Yellow Normal Yellow [facility] Comment on above: Order Comment: Name Collection Type:: Clean-Voided Midstream Performed By: #### C K, HS TROP #### [address] Complete Blood Count Auto Di ffon 07-03-2024 Mean Corpuscular HGB Conc 33.5 g/dL Normal 32.5-35.6 [facility] Comment on above: Performed By: #### C K, HS TROP #### [place] [address] [place] NRBC% 0.1 /100{WBC} Normal 0-0.5 [facility] Comment on above: Performed By: #### C K, HS TROP #### [place] [id number] [place] Creatine Kinaseon 07-03-2024 CK [Catalytic activity/Vol] 247 U/L High [facility] Comment on above: Performed By: #### C K, HS TROP #### [facility] [address] [place] [address] [place] CK [Catalytic activity/Vol] 324 U/L High [facility] Comment on above: Performed By: #### C K, HS TROP #### [facility] [address] [place] [address] [place] Creatine kinase [Enzymatic a ctivity/volume] in Serum or PlasmaOrdered By: Serge Mckeon on 07-03-2024 CK [Catalytic activity/Vol] 180 U/L Normal 30-223 [facility] Comment on above: Performed By: #### C K, HS TROP #### [facility] [address] [place] [address] [place] Dipstick and Microscopicon 0 07-03-2024 Bacteria,Urine None Seen Normal None Seen [facility] Comment on above: Order Comment: Name Collection Type:: Clean-Voided Midstream Performed By: #### C K, HS TROP #### [place] [address] [place] Bilirubin,Urine Negative Normal Negative [facility] Comment on above: Order Comment: Name Collection Type:: Clean-Voided Midstream Performed By: #### C K, HS TROP #### [address] Glucose Ql (U) Normal Normal Normal [facility] Comment on above: Order Comment: Name Collection Type:: Clean-Voided Midstream Performed By: #### C K, HS TROP #### [place] [address] [place] Hyaline Casts,Urine 0-8 Normal 0-8 [facility] Comment on above: Order Comment: Name Collection Type:: Clean-Voided Midstream Performed By: #### C K, HS TROP #### [place] [address] [place] Mucus,Urine Rare Normal [facility] Comment on above: Order Comment: Name Collection Type:: Clean-Voided Midstream Result Comment: PERF ORMED BY: [place] [address] PATHOLOGIST DENTAL ASSISTANT TEACHER IAN LA M.D. Performed By: #### C K, HS TROP #### [facility] [address] [place] [address] [place] Nitrite,Urine Negative Normal Negative [facility] Comment on above: Order Comment: Name Collection Type:: Clean-Voided Midstream Performed By: #### C K, HS TROP #### [address] Occult Blood,Urine Negative Normal Negative [facility] Comment on above: Order Comment: Name Collection Type:: Clean-Voided Midstream Result Comment: PERF ORMED BY: [place] [address] PATHOLOGIST DENTAL ASSISTANT TEACHER IAN LA M.D. Performed By: #### C K, HS TROP #### [address] RBC,Urine 1-2 Normal 0-4 [facility] Comment on above: Order Comment: Name Collection Type:: Clean-Voided Midstream Performed By: #### C K, HS TROP #### [address] Specificy [place],Urine 1.015 Normal 1.001-1.030 [facility] Comment on above: Order Comment: Name Collection Type:: Clean-Voided Midstream Performed By: #### C K, HS TROP #### [address] Urobilinogen,Urine Normal Normal Normal [facility] Comment on above: Order Comment: Name Collection Type:: Clean-Voided Midstream Performed By: #### C K, HS TROP #### [address] WBC,Urine 1-2 Normal 0-4 [facility] Comment on above: Order Comment: Name Collection Type:: Clean-Voided Midstream Performed By: #### C K, HS TROP #### [address] ECH echo transthoracicon ECH echo transthoracic [facility] [place] [address] [place] [address] Echocardiogram Signed Patient: Kirstie Campos MR#: [id number] 6 : 1950 Acct:[id number] Age/Sex: 74 / M ADM Date: 07/02/24 Loc: Room: [address] [place] [address] Type: ADM IN Attending Dr: Serge Mckeon DO Ordering Provider: Serge Mckeon DO Date of Service: 07/02/24 ECH/ECH echo transthoracic: syncope Copies to: MD Serge Argueta DO BSA: 1.7 m2 BP: 143/80 mmHg HR: 46 Reason For Study: syncope History: GERD, HTN, HLD, CVA, Smoker, FHx: CAD Interpretation Summary Ejection Fraction = 55-60%. The left ventricular wall motion is normal. Mild to moderate concentric left ventricular hypertrophy. There is trace tricuspid regurgitation. There is no comparison study available. No significant valvular abnormality seen. Procedure/Quality: A two-dimensional transthoracic echocardiogram with color flow and Doppler was performed. The study was technically suboptimal in quality due to poor acoustic windows . Left Ventricle: The left ventricular size is normal. Mild to moderate concentric left ventricular hypertrophy. Ejection Fraction = 55-60%. The left ventricular wall motion is normal. Left Atrium: The left atrium appears normal in size. Right Atrium: The right atrium appears normal in size. Right Ventricle: The right ventricle is normal in size and function. Aortic Valve: The aortic valve is not well visualized. No hemodynamically significant valvular aortic stenosis. No aortic regurgitation is present. Mitral Valve: The mitral valve is normal in structure. There is mild mitral annular calcification. No significant mitral valve stenosis. There is no mitral regurgitation noted. Tricuspid Valve: The tricuspid valve is not well visualized. There is trace tricuspid regurgitation. Pulmonic Valve: The pulmonic valve is not well visualized. No significant pulmonic regurgitation. Arteries: The aortic root is normal size. Pericardium/Pleura: No pericardial effusion seen. There is no pleural effusion. IVC/Hepatic Veins: The inferior vena cava is normal in size, with a normal collapsibility index. Measurements with Normals IVSd: 1.4 cm (0.7-1.1 cm)LVIDd: 3.9 cm (3.7-5.4 cm) LVPWd: 1.2 cm (0.7-1.1 cm)LVIDs: 2.9 cm (2.3-3.6 cm) LA dimension: 4.5 cm (2.3-4.0 cm)Ao root diam: 3.2 cm(2.0-3.6 cm) asc Aorta Diam: 3.5 cm(2.1-3.4cm) Doppler with Normals RVSP(TR): 23.8 mmHg (18-35mmHg) LV V1 max: 87.4 cm/sec (0.7-1.7m/s)MV E max casey: 54.0 cm/sec(0.8-1.3m/s) MV A max casey: 62.6 cm/sec(0.0-0.0m/s) MV E/A: 0.86 (<1.5) MMode/2D Measurements Calculations RVDd: 3.6 cm FS: 24.8 % Ao root area: LVOT diam: 2.0 cm TAPSE: 2.7 cm EDV(Teich): 8.0 cm2 LVOT area: 3.2 cm2 RV S Casey: 66.2 ml 15.3 cm/sec ESV(Teich): 33.2 ml EF(Teich): 49.8 % __ LVLd ap4: 7.9 cm SV(MOD-sp4): LAV(MOD-sp4): LA A2 area: 15.0 cm2 EDV(MOD-sp4): 53.2 ml 30.9 ml 91.8 ml LAV(MOD-sp2): LA A4 area: 13.7 cm2 LVLs ap4: 6.9 cm 35.3 ml LA length (vol): ESV(MOD-sp4): 4.9 cm 38.6 ml LA vol: 35.6 ml EF(MOD-sp4): 58.0 % LA vol index: 20.5 ml/m2 Doppler Measurements Calculations MV dec time: E/E' lat: 6.2 MV dec slope: Ao V2 max: 0.30 sec E/E' med: 9.4 119.4 cm/sec 182.5 cm/sec2 Ao max P.7 mmHg Ao mean P.7 mmHg Ao V2 mean: 74.8 cm/sec Ao V2 VTI: 28.6 cm LAWRENCE(I,D): 2.8 cm2 LAWRENCE(V,D): 2.4 cm2 __ LV V1 max PG: TV max PG: TR max casey: 3.1 mmHg 21.0 mmHg 228.0 cm/sec LV V1 mean PG: TR max P.8 mmHg 1.3 mmHg RAP systole: 3.0 mmHg LV V1 mean: 51.9 cm/sec LV V1 VTI: 25.2 cm Measurements from QLAB BSA (): 1.7 m2 CI (): ED Mass (HM): LAEF (): 43.0 % 2.3 l/min/m2 154.0 grams __ COLLIN (): LAVmax (): LAVmin (): 54.0 mlPat Height (): 95.0 ml 172.0 cm 55.0 ml/m2 __ Pat Weight (): 62.1 kg QLAB Heart Model EDV ()_phl: 151.0 ml EF ()_phl: 50.0 % ED Current ()_phl: 60.0 % ESV ()_phl: 76.0 ml HR ()_phl: 52.0 BPMES Current ()_phl: 30.0 % LV Length ED ()_phl: 87.0 mmSV ()_phl: 75.0 ml ED Default ()_phl: 60.0 % LV Length ES ()_phl: 69.0 mm ES Default ()_phl: 30.0 % Transcribed By: KB Performed At: 07/03/24 0908 Signed By: Benjie Robert MD 07/03/24 1706 Normal [facility] Epithelial cells.squamous [# /area] in Urine sediment by Automated countOrdered By: Serge Mckeon on 07-03-2024 Epithelial cells.squamous Auto (Urine sed) [#/Area] N/A [facility] Erythrocyte distribution wid th [Ratio] by Automated countOrdered By: Serge Mckeon on 07-03-2024 Erythrocyte distribution width (RBC) [Ratio] 13.5 % Normal 12.0-14.8 [facility] Comment on above: Performed By: #### C K, HS TROP #### [address] Erythrocytes [#/area] in Uri ne sediment by Automated countOrdered By: Serge Mckeon on 07-03-2024 RBC Auto (Urine sed) [#/Area] 1-2 [HPF] 0-4 [facility] Erythrocytes [#/volume] in B lood by Automated countOrdered By: Serge Mckeon on 07-03-2024 RBC (Bld) [#/Vol] 3.73 10*6/uL Low 3.90-5.60 [facility] Comment on above: Performed By: #### C K, HS TROP #### [address] Glucose [Mass/volume] in Uri ne by Test stripOrdered By: Serge Mckeon on 07-03-2024 Glucose Test strip (U) [Mass/Vol] Normal mg/dL Normal [facility] Hematocrit [Volume Fraction] of Blood by Automated countOrdered By: Serge Mckeon on 07-03-2024 Hematocrit (Bld) [Volume fraction] 33.9 % Low 38.8-50.0 [facility] Comment on above: Performed By: #### C K, HS TROP #### [address] Hemoglobin Test strip Ql (U) Ordered By: Serge Mckeon on 07-03-2024 Hemoglobin Ql (U) Negative Negative [facility] Hemoglobin [Mass/volume] in BloodOrdered By: Serge Mckeon on 07-03-2024 Hemoglobin (Bld) [Mass/Vol] 11.4 g/dL Low 13.0-17.0 [facility] Comment on above: Performed By: #### C K, HS TROP #### [facility] [address] [place] [address] [place] Hyaline casts [#/area] in Ur ine sediment by Automated countOrdered By: Serge Mckeon on 07-03-2024 Hyaline casts Auto (Urine sed) [#/Area] 0-8 [LPF] 0-8 [facility] Ketones [Presence] in Urine by Test stripOrdered By: Serge Mckeon on 07-03-2024 Ketones Ql (U) Negative Normal Negative [facility] Comment on above: Order Comment: Name Collection Type:: Clean-Voided Midstream Performed By: #### C K, HS TROP #### [facility] [address] Leukocyte esterase [Presence ] in Urine by Test stripOrdered By: Serge Mckeon on 07-03-2024 Leukocyte esterase Test strip Ql (U) Negative Normal Negative [facility] Comment on above: Order Comment: Name Collection Type:: Clean-Voided Midstream Performed By: #### C K, HS TROP #### [facility] [address] [place] [address] [place] Leukocytes [#/area] in Urine sediment by Automated countOrdered By: Serge Mckeon on 07-03-2024 WBC Auto (Urine sed) [#/Area] 1-2 [HPF] 0-4 [facility] Leukocytes [#/volume] correc chely for nucleated erythrocytes in Blood by Automated counOrdered By: Serge Mckeon on 07-03-2024 WBC corrected for nucl RBC Auto (Bld) [#/Vol] 8.9 10*3/uL 4.1-10.5 [facility] Leukocytes [#/volume] in Blo od by Automated countOrdered By: Serge Mckeon on 07-03-2024 WBC (Bld) [#/Vol] 8.9 10*3/uL Normal 4.1-10.5 [facility] Comment on above: Performed By: #### C K, HS TROP #### [facility] [address] [place] [address] [place] Lymphocytes [#/volume] in Bl ood by Automated countOrdered By: Serge Mckeon on 07-03-2024 Lymphocytes (Bld) [#/Vol] 2.0 10*3/uL Normal 1.00-4.8 [facility] Comment on above: Performed By: #### C K, HS TROP #### [place] [address] [place] Lymphocytes/100 leukocytes i n Blood by Automated countOrdered By: Serge Mckeon on 07-03-2024 Lymphocytes/100 WBC (Bld) 22.3 % Normal . [facility] Comment on above: Performed By: #### C K, HS TROP #### [address] MCH [Entitic mass] by Automa chely countOrdered By: Serge Mckeon on 07-03-2024 MCH (RBC) [Entitic mass] 30.6 pg Normal 27.5-35.2 [facility] Comment on above: Performed By: #### C K, HS TROP #### [address] MCHC Auto (RBC) [Mass/Vol]Or dered By: Serge Mckeon on 07-03-2024 MCHC (RBC) [Mass/Vol] 33.5 g/dL 32.5-35.6 [facility] MCV [Entitic volume] by Auto mated countOrdered By: Serge Mckeon on 07-03-2024 MCV (RBC) [Entitic vol] 91.1 fL Normal 83.5-101 [facility] Comment on above: Performed By: #### C K, HS TROP #### [place] [address] [place] Magnesiumon 07-03-2024 Magnesium [Mass/Vol] 2.1 mg/dL Normal 1.9-2.7 [facility] Comment on above: Result Comment: PERF ORMED BY: [place] [address] PATHOLOGIST DENTAL ASSISTANT TEACHER IAN LA M.D. Performed By: #### C K, HS TROP #### [address] Mucus [Presence] in Urine by AutomatedOrdered By: Serge Mckeon on 07-03-2024 Mucus Auto Ql (U) Rare [LPF] [facility] Neutrophils [#/volume] in Bl ood by Automated countOrdered By: Serge Mckeon on 07-03-2024 Neutrophils (Bld) [#/Vol] 5.8 10*3/uL Normal 1.8-7.7 [facility] Comment on above: Performed By: #### C K, HS TROP #### [facility] [address] Nitrite Test strip Ql (U)Ord ered By: Serge Mckeon on 07-03-2024 Nitrite Ql (U) Negative Negative [facility] Nucleated erythrocytes [Pres ence] in Blood by Automated countOrdered By: Serge Mckeon on 07-03-2024 Nucleated RBC Auto Ql (Bld) 0.1 /100{WBC} 0-0.5 [facility] Platelet mean volume [Entiti c volume] in Blood by Automated countOrdered By: Serge Mckeon on 07-03-2024 Platelet mean volume (Bld) [Entitic vol] 6.9 fL Normal 6.6-10.1 [facility] Comment on above: Performed By: #### C K, HS TROP #### [facility] [address] [place] [address] [place] Platelets [#/volume] in Bloo d by Automated countOrdered By: Serge Mckeon on 07-03-2024 Platelets (Bld) [#/Vol] 214 10*3/uL Normal 150-450 [facility] Comment on above: Performed By: #### C K, HS TROP #### [place] [address] [place] Protein [Mass/volume] in Uri ne by Test stripOrdered By: Serge Mckeon on 07-03-2024 Protein (U) [Mass/Vol] 20 mg/dL High Negative [facility] Comment on above: Order Comment: Name Collection Type:: Clean-Voided Midstream Performed By: #### C K, HS TROP #### [facility] [address] [place] [address] [place] Specific gravity Test strip (U) [Rel density]Ordered By: Serge Mckeon on 07-03-2024 Specific gravity (U) [Rel density] 1.015 1.001-1.030 [facility] Troponin I High Sensitivityo n 07-03-2024 Troponin I High Sensitivity 124.3 pg/mL Off scale high 0.0-20.0 [facility] Comment on above: Result Comment: Crit ical Result : Called to and read back by: GERI CESPEDES at: 07/03/2024 20:39:57 by:[id number] PERFORMED BY: [place] [phone] PATHOLOGIST DENTAL ASSISTANT TEACHER IAN LA M.D. Performed By: #### C K, HS TROP #### [address] Troponin I High Sensitivity 155.2 pg/mL Off scale high 0.0-20.0 [facility] Comment on above: Result Comment: Crit ical Result : Called to and read back by: LOU MALDONADO at: 07/03/2024 13:23:03 by:[email or web address] PERFORMED BY: [place] [phone] PATHOLOGIST DENTAL ASSISTANT TEACHER IAN LA M.D. Performed By: #### C K, HS TROP #### [address] Troponin I High Sensitivity 201.4 pg/mL Off scale high 0.0-20.0 [facility] Comment on above: Result Comment: Crit ical Result : Called to and read back by: TONY MARTINEZ at: 07/03/2024 04:19:55 by:[id number] PERFORMED BY: [place] [phone] PATHOLOGIST DENTAL ASSISTANT TEACHER IAN LA M.D. Performed By: #### C K, HS TROP #### [address] Troponin I.cardiac [Mass/vol ume] in Serum or Plasma by Detection limit <= 0.01 ng/Ordered By: Serge Mckeon on 07-03-2024 Troponin I.cardiac DL <= 0.01 ng/mL [Mass/Vol] 124.3 pg/mL High 0.0-20.0 [facility] Comment on above: Critical Result : Ca lled to and read back by: GERI CESPEDES at: 07/03/2024 20:39:57 by:[id number] Urine appearanceOrdered By: Serge Mckeon on 07-03-2024 Appearance (U) Clear Normal Clear [facility] Comment on above: Order Comment: Name Collection Type:: Clean-Voided Midstream Performed By: #### C K, HS TROP #### [address] Urobilinogen Test strip (U) [Mass/Vol]Ordered By: Serge Mckeon on 07-03-2024 Urobilinogen (U) [Mass/Vol] Normal mg/dL Normal [facility] pH of Urine by Test stripOrd ered By: Serge Mckeon on 07-03-2024 pH (U) 5.5 [pH] Normal 5.0-9.0 [facility] Comment on above: Order Comment: Name Collection Type:: Clean-Voided Midstream Performed By: #### C K, HS TROP #### [address] Activated partial thrombopla stin time (aPTT) in platelet poor plasma by coagulation aOrdered By: Serge Mckeon on 07-02-2024 aPTT Coag (PPP) [Time] 34.9 s 25.1-36.5 [facility] Comment on above: A hematocrit value g reater than 55% may lead to inaccurate results in coagulation testing. Patients having hematocrit values >55% require a special collection tube for coagulation studies. Please contact the laboratory at [phone] for redraw instructions. Alanine aminotransferase [En zymatic activity/volume] in Serum or PlasmaOrdered By: Serge Mckeon on 07-02-2024 ALT [Catalytic activity/Vol] 11 U/L Normal 7-52 [facility] Comment on above: Performed By: #### C K, HS TROP #### [facility] [address] Albumin [Mass/volume] in Ser um or Plasma by Bromocresol green (BCG) dye binding methoOrdered By: Serge Mckeon on 07-02-2024 Albumin BCG dye [Mass/Vol] 3.8 g/dL 3.5-5.7 [facility] Alkaline phosphatase [Enzyma tic activity/volume] in Serum or PlasmaOrdered By: Serge Mckeon on 07-02-2024 ALP [Catalytic activity/Vol] 37 U/L Normal 34-104 [facility] Comment on above: Performed By: #### C K, HS TROP #### [address] Ammonia [Moles/volume] in Pl asmaOrdered By: Serge Mckeon on 07-02-2024 Ammonia (P) [Moles/Vol] 23 umol/L Normal 11-35 [facility] Comment on above: Result Comment: PERF ORMED BY: [place] [address] PATHOLOGIST DENTAL ASSISTANT TEACHER IAN LA M.D. Performed By: #### C K, HS TROP #### [address] Arterial Blood Gason 024 ABG Base Excess -3.0 mmol/L Normal -3.0-3.0 [facility] Comment on above: Performed By: #### A BG #### Point of Care testing , ABG Frac Inspired O2 21 % Normal [facility] Comment on above: Performed By: #### A BG #### Point of Care testing , ABG Oxygen Content 7.3 mmol/L Normal 6.6-9.7 [facility] Comment on above: Performed By: #### A BG #### Point of Care testing , ABG Oxygen Saturation 90.9 % Low 95.0-100.0 [facility] Comment on above: Performed By: #### A BG #### Point of Care testing , ABG PCO2 34.6 mm[Hg] Low 35.0-45.0 [facility] Comment on above: Performed By: #### A BG #### Point of Care testing , ABG PH 7.40 Normal 7.35-7.45 [facility] Comment on above: Performed By: #### A BG #### Point of Care testing , ABG PO2 59.6 mm[Hg] Low 80.0-100.0 [facility] Comment on above: Performed By: #### A BG #### Point of Care testing , Respiratory Critical Normal [facility] Comment on above: Result Comment: Crit ical Value called on: 07/02/2024 at 19:29 PERFORMED BY: [address] [place] [address] PATHOLOGIST DENTAL ASSISTANT TEACHER IAN LA M.D. Performed By: #### A BG #### Point of Care testing , VBG Draw Site Left Radial Normal [facility] Comment on above: Performed By: #### A BG #### Point of Care testing , Arterial Blood GasOrdered By : Serge Mckeon on 07-02-2024 CO2 [Moles/Vol] 22.1 mmol/L Low 23.0-27.0 [facility] Comment on above: Performed By: #### A BG #### Point of Care testing , HCO3 (Bld) [Moles/Vol] 21.0 mmol/L Low 23.0-29.0 [facility] Comment on above: Performed By: #### A BG #### Point of Care testing , Aspartate aminotransferase [ Enzymatic activity/volume] in Serum or PlasmaOrdered By: Serge Mckeon on 07-02-2024 AST [Catalytic activity/Vol] 22 U/L Normal 13-39 [facility] Comment on above: Performed By: #### C K, HS TROP #### [address] BNP ser/plasOrdered By: Julián Mckeon on 07-02-2024 Natriuretic peptide B (Bld) [Mass/Vol] 62.0 pg/mL Normal 5-100 [facility] Comment on above: Result Comment: PERF ORMED BY: [place] [address] PATHOLOGIST DENTAL ASSISTANT TEACHER IAN LA M.D. Performed By: #### C K, HS TROP #### [address] Bacterial blood cultureOrder ed By: Serge Mckeon on 07-02-2024 Bacteria identified Cx Nom (Bld) NO GROWTH 5 DAYS [facility] Bilirubin.total [Mass/volume ] in Serum or PlasmaOrdered By: Serge Mckeon on 07-02-2024 Bilirubin [Mass/Vol] 0.7 mg/dL Normal 0.3-1.0 [facility] Comment on above: Performed By: #### C K, HS TROP #### [address] Blood Cultureon 07-02-2024 Bacteria identified Cx Nom (Bld) NO GROWTH 5 DAYS PERFORMED BY: [place] [address] PATHOLOGIST DENTAL ASSISTANT TEACHER IAN LA M.D. Normal [facility] Comment on above: Performed By: #### C K, HS TROP #### [address] Coagulation Profileon 2023 aPTT Coag (Bld) [Time] 34.9 s Normal 25.1-36.5 [facility] Comment on above: Result Comment: A he matocrit value greater than 55% may lead to inaccurate results in coagulation testing. Patients having hematocrit values >55% require a special collection tube for coagulation studies. Please contact the laboratory at [phone] for redraw instructions. PERFORMED BY: [place] [address] PATHOLOGIST DENTAL ASSISTANT TEACHER IAN LA M.D. Performed By: #### C K, HS TROP #### [address] Complete Blood Count Auto Di ffon 07-02-2024 Basophils (Bld) [#/Vol] 0.0 10*3/uL Normal 0.0-0.2 [facility] Comment on above: Result Comment: PERF ORMED BY: [place] [address] PATHOLOGIST DENTAL ASSISTANT TEACHER IAN LA M.D. Performed By: #### C K, HS TROP #### [place] [address] [place] Basophils/100 WBC (Bld) 0.3 % Normal . [facility] Comment on above: Performed By: #### C K, HS TROP #### [place] [address] [place] Eosinophils (Bld) [#/Vol] 0.1 10*3/uL Normal 0.0-0.45 [facility] Comment on above: Performed By: #### C K, HS TROP #### [address] Eosinophils/100 WBC (Bld) 0.9 % Normal . [facility] Comment on above: Performed By: #### C K, HS TROP #### [address] Erythrocyte distribution width (RBC) [Ratio] 13.5 % Normal 12.0-14.8 [facility] Comment on above: Performed By: #### C K, HS TROP #### [address] Hematocrit (Bld) [Volume fraction] 35.8 % Low 38.8-50.0 [facility] Comment on above: Performed By: #### C K, HS TROP #### [place] [address] [place] Hemoglobin (Bld) [Mass/Vol] 11.7 g/dL Low 13.0-17.0 [facility] Comment on above: Performed By: #### C K, HS TROP #### [place] [address] [place] Lymphocytes (Bld) [#/Vol] 1.5 10*3/uL Normal 1.00-4.8 [facility] Comment on above: Performed By: #### C K, HS TROP #### [facility] [address] [place] [address] [place] Lymphocytes/100 WBC (Bld) 12.7 % Normal . [facility] Comment on above: Performed By: #### C K, HS TROP #### [facility] [address] MCH (RBC) [Entitic mass] 30.2 pg Normal 27.5-35.2 [facility] Comment on above: Performed By: #### C K, HS TROP #### [facility] [address] [place] [address] MCV (RBC) [Entitic vol] 92.8 fL Normal 83.5-101 [facility] Comment on above: Performed By: #### C K, HS TROP #### [address] Mean Corpuscular HGB Conc 32.6 g/dL Normal 32.5-35.6 [facility] Comment on above: Performed By: #### C K, HS TROP #### [place] [address] [place] Monocytes (Bld) [#/Vol] 1.0 10*3/uL High 0.0-0.8 [facility] Comment on above: Performed By: #### C K, HS TROP #### [place] [address] [place] Monocytes/100 WBC (Bld) 8.6 % Normal . [facility] Comment on above: Performed By: #### C K, HS TROP #### [facility] [address] [place] [address] [place] Neutrophils (Bld) [#/Vol] 9.3 10*3/uL High 1.8-7.7 [facility] Comment on above: Performed By: #### C K, HS TROP #### [facility] [address] [place] [address] [place] Neutrophils/100 WBC (Bld) 77.5 % Normal . [facility] Comment on above: Performed By: #### C K, HS TROP #### [address] NRBC% 0.1 /100{WBC} Normal 0-0.5 [facility] Comment on above: Performed By: #### C K, HS TROP #### [address] Platelet mean volume (Bld) [Entitic vol] 7.6 fL Normal 6.6-10.1 [facility] Comment on above: Performed By: #### C K, HS TROP #### [address] Platelets (Bld) [#/Vol] 238 10*3/uL Normal 150-450 [facility] Comment on above: Performed By: #### C K, HS TROP #### [address] RBC (Bld) [#/Vol] 3.85 10*6/uL Low 3.90-5.60 [facility] [facility] Comment on above: Performed By: #### C K, HS TROP #### [address] WBC (Bld) [#/Vol] 12.0 10*3/uL High 4.1-10.5 [facility] Comment on above: Performed By: #### C K, HS TROP #### [address] Comprehensive Metabolic Pane abimbola 07-02-2024 Albumin [Mass/Vol] 3.8 g/dL Normal 3.5-5.7 [facility] Comment on above: Performed By: #### C K, HS TROP #### [address] Anion gap [Moles/Vol] 12.1 mmol/L Normal 6.0-15.0 Th e [facility] Comment on above: Performed By: #### C K, HS TROP #### [address] Calcium [Mass/Vol] 8.9 mg/dL Normal 8.6-10.3 [facility] Comment on above: Performed By: #### C K, HS TROP #### [facility] [address] [place] [address] [place] Chloride [Moles/Vol] 106 mmol/L Normal 98-107 [facility] Comment on above: Performed By: #### C K, HS TROP #### [facility] [address] [place] [id number] [place] CO2 [Moles/Vol] 24.7 mmol/L Normal 21.0-31.0 [facility] Comment on above: Performed By: #### C K, HS TROP #### [facility] [address] [place] [address] [place] Creatinine [Mass/Vol] 1.36 mg/dL High 0.70-1.30 [facility] Comment on above: Performed By: #### C K, HS TROP #### [facility] [address] [place] [address] [place] Creatinine Clr Calc Pharmacy 41.89 Normal [facility] Comment on above: Performed By: #### C K, HS TROP #### [facility] [address] [place] [address] [place] GFR/1.73 sq M.predicted MDRD (S/P/Bld) [Vol rate/Area] 54.270 mL/min/{1.73_m2} Normal [facility] Comment on above: Performed By: #### C K, HS TROP #### [facility] [address] [place] [address] [place] Glucose [Mass/Vol] 155 mg/dL High 70-100 [facility] Comment on above: Result Comment: [place] Glucose Reference Range is dependent on time and content of last meal. Glucose of more than 200 mg/dL in a nonstressed, ambulatory subject supports the diagnosis of Diabetes Mellitus. ADA recommended reference range Performed By: #### C K, HS TROP #### [facility] [address] [place] [address] [place] Potassium [Moles/Vol] 3.8 mmol/L Normal 3.5-5.1 [facility] Comment on above: Performed By: #### C K, HS TROP #### [facility] [address] [place] [address] [place] Sodium [Moles/Vol] 139 mmol/L Normal 136-145 [facility] Comment on above: Performed By: #### C K, HS TROP #### [facility] [address] [place] [id number] [place] Urea nitrogen [Mass/Vol] 30 mg/dL High 7-25 [facility] Comment on above: Performed By: #### C K, HS TROP #### [facility] [address] [place] [id number] [place] Creatine Kinaseon 07-02-2024 CK [Catalytic activity/Vol] 453 U/L High 30-223 [facility] Comment on above: Performed By: #### H S TROP, CK #### [address] ECG 12 lead ECGon 07-02-2024 ECG 12 lead ECG [facility] [place] [address] Electrocardiograph Report Signed Patient: Kirstie Campos MR#: [id number] 6 : 1950 Acct:[id number] Age/Sex: 74 / M ADM Date: 07/02/24 Loc: Room: [address] [place] [address] Type: ADM IN Attending Dr: Serge Mckeon DO Ordering Provider: Serge Mckeon DO Date of Service: 07/02/24 ECG/ECG 12 lead ECG: NSTEMI Copies to: Test Reason : Blood Pressure : */* mmHG Vent. Rate : 61 BPM Atrial Rate : 60 BPM P-R Int : 80 ms QRS Dur : 84 ms QT Int : 436 ms P-R-T Axes : -64 72 57 degrees QTcB Int : 438 ms Junctional rhythm Abnormal ECG When compared with ECG of 25-Jan-2022 11:58, Junctional rhythm has replaced Sinus rhythm Confirmed by Benjie Robert ([id number]) on 07/04/2024 11:37:01 AM Referred By: Electronically Signed By: Benjie Robert Transcribed By: MUS Signed By Benjie Robert MD 07/04/24 1137 Normal [facility] INR in Platelet poor plasma by Coagulation assayOrdered By: Serge Mckeon on 07-02-2024 INR Coag (PPP) [Relative time] 1.1 {INR} Normal [facility] Comment on above: INR Therapeutic Rang e A) Pre- and Peroperative OAT started two weeks before surgery. NOT HIP SURGERY: 1.5 - 2.5 HIP SURGERY: 2 - 3B) Primary and secondary prevention of venous THROMBOSIS: 2 - 3C) Active venous thrombosis, pulmonary embolismand prevention of recurrent venous thrombosis: 2 - 3D) Prevention of arterial thromboembolismincluding patients with mechanical heart valves: 3 - 4.5 Result Comment: INR Therapeutic Range A) Pre- and Peroperative OAT started two weeks before surgery. NOT HIP SURGERY: 1.5 - 2.5 HIP SURGERY: 2 - 3 B) Primary and secondary prevention of venous THROMBOSIS: 2 - 3 C) Active venous thrombosis, pulmonary embolism and prevention of recurrent venous thrombosis: 2 - 3 D) Prevention of arterial thromboembolism including patients with mechanical heart valves: 3 - 4.5 Performed By: #### C K, HS TROP #### [facility] [address] [place] [address] [place] Lactate [Moles/volume] in Se rum or PlasmaOrdered By: Serge Mckeon on 07-02-2024 Lactate [Moles/Vol] 1.7 mmol/L Normal 0.5-2.2 [facility] Comment on above: Result Comment: PERF ORMED BY: [place] [address] PATHOLOGIST DENTAL ASSISTANT TEACHER IAN LA M.D. Performed By: #### C K, HS TROP #### [facility] [address] [place], [place] [id number] [place] Magnesiumon 07-02-2024 Magnesium [Mass/Vol] 2.2 mg/dL Normal 1.9-2.7 [facility] Comment on above: Result Comment: PERF ORMED BY: [place] [address] PATHOLOGIST DENTAL ASSISTANT TEACHER IAN LA M.D. Performed By: #### C K, HS TROP #### [facility] [address] [place] [address] No Panel InformationOrdered By: Serge Mckeon on 07-02-2024 Arterial Blood Base Excess -3.0 mmol/L -3.0-3.0 [facility] Arterial Blood Oxygen Content 7.3 mmol/L 6.6-9.7 [facility] Arterial Blood Oxygen Saturation 90.9 % Low 95.0-100.0 [facility] Arterial Blood Partial Pressure CO2 34.6 mm[Hg] Low 35.0-45.0 [facility] Arterial Blood Partial Pressure O2 59.6 mm[Hg] Low 80.0-100.0 [facility] Arterial Blood pH 7.40 7.35-7.45 [facility] Blood Gas Critical Value See comment [facility] Comment on above: Critical Value hess d on: 07/02/2024 at 19:29 Blood Gas Sample Site Left radial [facility] FiO2 21 % [facility] Protein [Mass/volume] in Ser um or PlasmaOrdered By: Serge Mckeon on 07-02-2024 Protein [Mass/Vol] 5.8 g/dL Low 6.4-8.9 [facility] Comment on above: Performed By: #### C K, HS TROP #### [facility] [address] Prothrombin time (PT)Ordered By: Serge Mckeon on 07-02-2024 PT Coag (PPP) [Time] 12.5 s Normal 9.0-12.9 [facility] Comment on above: A hematocrit value g reater than 55% may lead to inaccurate results in coagulation testing. Patients having hematocrit values >55% require a special collection tube for coagulation studies. Please contact the laboratory at [phone] for redraw instructions. Result Comment: A he matocrit value greater than 55% may lead to inaccurate results in coagulation testing. Patients having hematocrit values >55% require a special collection tube for coagulation studies. Please contact the laboratory at [phone] for redraw instructions. Performed By: #### C K, HS TROP #### [facility] [address] [place] [id number] [facility] Serum globulin measurement b y calculation (mass/volume)Ordered By: Serge Mckeon on 07-02-2024 Globulin (S) [Mass/Vol] 2.0 g/dL Normal [facility] Comment on above: Performed By: #### C K, HS TROP #### [address] Serum or plasma albumin/glob ulin mass ratioOrdered By: Serge Mckeon on 07-02-2024 Albumin/Globulin [Mass ratio] 1.9 {ratio} Normal [facility] Comment on above: Performed By: #### C K, HS TROP #### [facility] [address] [place] [address] Troponin I High Sensitivityo n 07-02-2024 Troponin I High Sensitivity 227.8 pg/mL Off scale high 0.0-20.0 [facility] Comment on above: Result Comment: Crit ical Result : Called to and read back by: TONY MARTINEZ at: 07/02/2024 21:16:52 by:[id number] PERFORMED BY: [place] [address] PATHOLOGIST DENTAL ASSISTANT TEACHER IAN LA M.D. Performed By: #### H S TROP, CK #### [address] XR chest 1V portableon 07-02 XR chest 1V portable [facility] [place] [address] [place] [address] XRay Report Signed Patient: Kirstie Campos MR#: [id number] 6 : 1950 Acct:[id number] Age/Sex: 74 / M ADM Date: 07/02/24 Loc: Room: [address] [place] [address] Type: ADM IN Attending Dr: Serge Mckeon DO Copies to: Serge Mckeon DO Ordering Provider: Serge Mckeon DO Date of Service: 07/02/24 XR/XR chest 1V portable: Nstemi SINGLE VIEW CHEST CLINICAL HISTORY: NSTEMI altered mental status syncopal episode earlier today. COMPARISON: Chest 11/19/2019 FINDINGS: Heart appears normal in size. No lung consolidation pneumothorax pleural effusion or free air. Mild interstitial changes. XR/XR chest 1V portable IMPRESSION: NO ACUTE FINDINGS Impression dictated by: Maldonado Shipman Jr., D.O.07/02/2024 7:39 PM Dictation Location: [place] [address] Transcribed By: [facility] 07/02/241938 Dictated By: Maldonado Shipman Jr, DO 07/02/241938 Signed By: 07/02/241938 Normal [facility] Provider Letteron 10-03-2023 Provider Letter (Inserted Image. Jo ble to display) October 03, 2023 K[address]IE CAMPOS [address] [place] [id number] : 1950 Dear Kirstie , This letter is to inform you the providers of [facility] will no longer be responsible for your routine medical care due to non compliance. Emergency care only will be provided for the thirty (30) days following this letter. During this time period we suggest that you find another physician for your medical needs. A listing of area physicians can be found on [facility]'s website at [email or web address] or you may contact your health plan. We will be glad to forward your records to your new physician as long as we receive a signed release of records form. Sincerely, Normal [facility] Patient Correspondenceon Patient Correspondence [id number] Normal [facility] Patient Letter FTon 2022 Patient Letter [facility] (Inserted Image. Jo ble to display) September 03, 2023 KIRSTIE [address] [place] [phone] : 1950 Dear Kirstie, I am corresponding [...] Sincerely, Nya Lloyd M.D. [facility] [place] [address] [place] [address] [facility] Provider Letteron 08-02-2023 Provider Letter (Inserted Image. Jo ble to display) August 02, 2023 KIRSTIE ANDREIA [address] [place] [phone] : 1950 Dear Mr. Campos , We [...] your prompt attention to this matter. Call [phone] option 3 to be reschedule. We also want to make you aware that your VA referral on 07/29/23 so if you want the VA to do another authorization, you would need to contact Dr Modi and ask him to update or extend that referral for our office. Otherwise, when you come in for recheck be sure to bring your private insurance cards. Sincerely, [facility] Reminderson 08-01-2023 Reminders - From: Yaneli Jefferson [...] ) Other: PROVIDER RELATED REMINDER:_ ( ) [employer]el[employer] ( ) Call Pharmacy ( ) Call Lab ( ) Other: Special Instructions:_ Comments:_ Pt no showed appointment and did not have PSA drawn yet. See other message in pt chart, pt is being tracked. Normal [facility] Lab Reportson 07-09-2023 Lab Reports [id number]:127 [facility] RAD - CT Reporton 07-09-2023 RAD - CT Report [id number]#[id number]:127 [facility] Creatinine (Bld) [Mass/Vol]O rdered By: Med Parkinson on 06-28-2023 Creatinine [Mass/Vol] 0.9 mg/dL 0.6-1.3 [facility] Comment on above: ER/ESD physician is notified/shown all ISTAT results.Critical values may be confirmed by laboratory testing ifdeemed necessary by ER attending doctor. Pre-Certification Formon Pre-Certification Form [id number]:127 [facility] Consent for Procedure/Surger yon 01-30-2023 Consent for Procedure/Surgery [id number]#[id number]:127 [facility] Urology Office/Clinic Noteon 01-30-2023 Urology Office/Clinic Note [...] med expensive for alternative -Refused Urocuff Ordered: [id number] Cystourethroscopy PSA Total 2. Elevated PSA (R97.20: [...] return in 6 months with PSA. Ordered: [id number] Cystourethroscopy PSA Total 3. Prostatitis (N41.9: Inflammatory disease of prostate, unspecified) completed 6 wk antibiotic course of Bactrim. Denies reoccurrence or sx change, but PSA came down Ordered: [id number] Cystourethroscopy PSA Total 4. OAB (overactive bladder) [...] Daily, # 30 tab(s), Refills(s) 6, Pharmacy: [facility], 175, cm, 01/30/23 9:40:00 EDT, Height/Length Dosing, 73, kg, 01/30/23 9:40:00 EDT, Weight Dosing Follow-up With When Contact Information Gabino MARTINEZ, Nya Borjas, URL, URO In 6 months [address], [place] [address] [phone] Additional Instructions: w/ PSA Patient Education Cystoscopy I, Yaneli Jefferson, personally scribed for Dr. Lloyd on 01/30/2023 10:49:35. . Documentation recorded by the scribe, Yaneli Jefferson, accurately reflects the services(s) I performed and decisions made by me. Authenticated by Dr. Lloyd on 01/30/2023 11:09:11. Problem List/Past Medical History Ongoing At risk for falls BPH with urinary obstruction Elevated PSA Prostatitis Smoker Historical COPD (chronic obstructive pulmonary disease) education CVA (cerebrovasc (more content not included)... [facility] Comment on above: Result Comment: Elec tronically Signed By: Nya Lloyd MD\.br\Date and Time Signed: 01/30/23 11:09 EDT\.br\Electronically Co-Signed By: Yaneli Jefferson\.br\Date and Time Co-Signed: 01/30/23 10:49 EDT Ambulatory Visit Summaryon 0 01-16-2023 Ambulatory Visit Summary KIRSTIE CAMPOS :1950 Visit Date:01/16/2023 Ambulatory Visit Instructions Your Diagnosis BPH with urinary obstruction Elevated PSA Prostatitis Your Care Team Attending Physician - SWETHA BREWER PA-C Primary Care Physician - ELEAZAR MODI [...] Nya Lloyd MD Where: [facility] Patient Educationon 01-17-20 Patient Education Urology Benign [...] Follow these instructions at home: ? Take eeyd-esn-wrbdhok and prescription medicines only as told by [...] d (more content not included)... Normal [facility] Urology Office/Clinic Noteon 01-16-2023 Urology Office/Clinic Note [...] mL. Discussed options - add 5-JOSTIN (alpha cookie not recommended due to pt already having [...] by Swetha Brewer PA-C on 01/16/2023 13:52:38. I, Danielle Jimenez, personally scribed for Swetha Brewer PA-C on [...] (COVID-19) mRNA BNT-162b2 vax 01/28/2021 Recorded Normal [facility] Comment on above: Result Comment: Elec tronically Signed By: SWETHA BREWER PA-C\.br\Date and Time Signed: 01/16/23 13:52 EDT\.br\Electronically Co-Signed By: Danielle Jimenez\.br\Date and Time Co-Signed: 01/16/23 13:44 EDT PSA, FREE AND TOTAL RATIOon 09-08-2022 % Free PSA 15.6 % Normal [facility] Comment on above: Result Comment: The table below lists the probability of prostate cancer for men with non-suspicious JILL results and total PSA between 4 and [...] population of men. Performed By: #### P SHILA #### [facility] [address] [place] [address] Dr. Mitali Torres Prostate specific Ag [Mass/Vol] 4.3 ng/mL Critically high 0.0-4.0 [facility] Comment on above: Result Comment: Roch e ECLIA methodology. . According to the [employer], Serum PSA should decrease and [...] disease. Performed By: #### P SAFREE #### [facility] [address] [place], [place] [address] Dr. Mitali Torres PSA, Free 0.67 ng/mL Normal N/A [facility] Comment on above: Result Comment: Tiara lea ECLIA methodology. Performed By: #### P SAFREE #### [facility] [address] [place], [place] [address] Dr. Mitali Torres Creatinine (Bld) [Mass/Vol]O rdered By: Med Parkinson on 06-05-2022 Creatinine [Mass/Vol] 0.8 mg/dL 0.6-1.3 [facility] Comment on above: ER/ESD physician is notified/shown all ISTAT results. Critical values may be confirmed by laboratory testing if deemed necessary by ER attending doctor. No Panel InformationOrdered By: Med Parkinson on 06-05-2022 POC Estimated GFR > 60 [facility] Comment on above: GFR estimated refere nce range: According to KDOQI guidelines, <60 ml/min/1.73m2 is sufficient to diagnose a patient with chronic kidney disease. POC Estimated GFR Non- Amer > 60 [facility] Vital Signs Date Time Vital Sign Value Performing Clinician Facility 07-17-2024 08:58-0400 Body height 172.72 cm [facility] 07-17-2024 08:58-0400 Diastolic blood pressure 68 mm[Hg] [facility] 07-17-2024 08:58-0400 Heart rate 56 /min [facility] 07-17-2024 08:58-0400 Respiratory rate 20 /min DO Eleazar Perezrolacho Work Phone: [facility] 07-17-2024 08:58-0400 Systolic blood pressure 108 mm[Hg] DO Eleazar Perezrolacho Work Phone: [facility] 07-04-2024 12:00-0400 Body temperature 98.1 [degF] DO Eleazar Modi Work Phone: [facility] 07-04-2024 12:00-0400 Diastolic blood pressure 87 mm[Hg] DO Eleazar Perezrolacho Work Phone: [facility] 07-04-2024 12:00-0400 Heart rate 51 /min DO Eleazar Modi Work Phone: [facility] 07-04-2024 12:00-0400 Respiratory rate 16 /min DO Eleazar Modi Work Phone: [facility] 07-04-2024 12:00-0400 SaO2% (BldA) [Mass fraction] 97 % DO Eleazar Modi Work Phone: [facility] 07-04-2024 12:00-0400 Systolic blood pressure 167 mm[Hg] DO Eleazar Modi Work Phone: [facility] 07-04-2024 05:53-0400 Body weight 62.3 kg DO Eleazar Modi Work Phone: [facility] 07-03-2024 15:41-0400 Body height 172.72 cm DO Eleazar Modi Work Phone: [facility] 07-16-2023 11:30-0400 Body height 175.26 cm Theresa Braden Other [employer] Other 07-16-2023 11:30-0400 Body mass index (BMI) [Ratio] 21.12 kg/m2 Theresa Braden Other [employer] Other 07-16-2023 11:30-0400 Body temperature 97.3 [degF] Theresa Braden Other [employer] Other 07-16-2023 11:30-0400 Body weight 64.86 kg Theresa Braden Other [employer] Other 07-16-2023 11:30-0400 Diastolic blood pressure 72 mm[Hg] Theresa Braden Other [employer] Other 07-16-2023 11:30-0400 SaO2% (BldA) [Mass fraction] 98 % Theresa Braden Other [employer] Other 07-16-2023 11:30-0400 Systolic blood pressure 116 mm[Hg] Theresa Braden Other [employer] Other 01-30-2023 09:23-0400 Diastolic blood pressure 95 mm[Hg] Nya Lue [facility] 01-30-2023 09:23-0400 Heart rate 63 /min Nya Lue [facility] 01-30-2023 09:23-0400 Systolic blood pressure 131 mm[Hg] Nya Lue [facility] 10-04-2022 08:24-0500 Diastolic blood pressure 80 mm[Hg] Nya Lue [facility] 10-04-2022 08:24-0500 Heart rate 60 /min Nya Lue [facility] 10-04-2022 08:24-0500 Systolic blood pressure 190 mm[Hg] Nya Lue [facility] 07-26-2022 11:03-0400 Blood Pressure Location Nya Lue [facility] 07-26-2022 11:03-0400 Diastolic blood pressure 121 mm[Hg] Nya Lue [facility] 07-26-2022 11:03-0400 Heart rate 60 /min Nya Lue [facility] 07-26-2022 11:03-0400 Systolic blood pressure 182 mm[Hg] Nya Lue [facility] 06-05-2022 10:45-0400 Body height 175.26 cm Med Parkinson Other [employer] Other 06-05-2022 10:45-0400 Body mass index (BMI) [Ratio] 22.15 kg/m2 Med Parkinson Other [employer] Other 06-05-2022 10:45-0400 Body temperature 97.5 [degF] Med Parkinson Other [employer] Other 06-05-2022 10:45-0400 Body weight 68.04 kg Med Parkinson Other [employer] Other 06-05-2022 10:45-0400 Diastolic blood pressure 76 mm[Hg] Med Parkinson Other [employer] Other 06-05-2022 10:45-0400 SaO2% (BldA) [Mass fraction] 98 % Med Parkinson Other [employer] Other 06-05-2022 10:45-0400 Systolic blood pressure 11 mm[Hg] Med Parkinson Other [employer] Other 01-23-2022 10:00-0400 Body height 175.26 cm Theresa Downeyisrrael Other [employer] Other 01-23-2022 10:00-0400 Body mass index (BMI) [Ratio] 26.58 kg/m2 Theresa Downeydorotao Other [employer] Other 01-23-2022 10:00-0400 Body temperature 96 [degF] Theresa Downeyisrrael Other [employer] Other 01-23-2022 10:00-0400 Body weight 81.65 kg Theresa Downeyisrrael Other [employer] Other 01-23-2022 10:00-0400 Diastolic blood pressure 78 mm[Hg] Theresa Alstono Other [employer] Other 01-23-2022 10:00-0400 SaO2% (BldA) [Mass fraction] 97 % Theresa Downeydorotao Other [employer] Other 01-23-2022 10:00-0400 Systolic blood pressure 140 mm[Hg] Theresa Alstono Other [employer] Other 01-16-2022 10:00-0400 Body height 175.26 cm Theresa Braden Other [employer] Other 01-16-2022 10:00-0400 Body mass index (BMI) [Ratio] 25.25 kg/m2 Theresa Braden Other [employer] Other 01-16-2022 10:00-0400 Body temperature 98 [degF] Theresa Braden Other [employer] Other 01-16-2022 10:00-0400 Body weight 77.57 kg Theresa Braden Other [employer] Other 01-16-2022 10:00-0400 Diastolic blood pressure 72 mm[Hg] Theresa Braden Other [employer] Other 01-16-2022 10:00-0400 Respiratory rate 20 /min Theresa Braden Other [employer] Other 01-16-2022 10:00-0400 SaO2% (BldA) [Mass fraction] 98 % Theresa Braden Other [employer] Other 01-16-2022 10:00-0400 Systolic blood pressure 130 mm[Hg] Theresa Braden Other [employer] Other Encounters Encounter Date Encounter Type Care Provider Facility Start: 07-17-2024 End: 07-17-2024 ambulatory DO Eleazar Modi Work Phone: [facility] Work Phone: Start: 07-17-2024 End: 07-17-2024 Patient encounter procedure DO Eleazar Modi Work Phone: [facility] Work Phone: Start: 07-08-2024 Non-patient / Non-visit DO Eleazar Modi Work Phone: [facility] Work Phone: Start: 07-04-2024 Non-patient / Non-visit DO Eleazar Modi Work Phone: [facility] Work Phone: Start: 07-03-2024 Non-patient / Non-visit DO Eleazar Modi Work Phone: [facility] Work Phone: Start: 07-02-2024 End: 07-04-2024 Evaluation and management of inpatient DO Eleazar Modi Work Phone: [facility] [place] [employer] Work Phone: Start: 07-31-2023 End: 07-31-2023 Patient encounter procedure DO Eleazar Modi Work Phone: [facility]-[employer] Start: 07-31-2023 End: 07-31-2023 ambulatory DO Eleazar Modi Work Phone: [facility] Work Phone: Start: 07-16-2023 End: 07-16-2023 ambulatory Theresa Braden Other [email or web address] Other Start: 07-16-2023 Patient encounter procedure Theresa Braden [facility] Start: 07-11-2023 End: 07-12-2023 ambulatory Nya Lloyd Facility:[facility] Start: 07-11-2023 End: 07-11-2023 Patient encounter procedure Nya Lloyd [facility] Start: 06-28-2023 End: 06-28-2023 ambulatory DO Eleazar Modi Work Phone: [facility] Work Phone: Start: 06-28-2023 End: 06-28-2023 Patient encounter procedure DO Eleazar Modi Work Phone: [facility] [place] Work Phone: Start: 01-30-2023 End: 01-31-2023 ambulatory Nya SudarshanYury Lloyd Facility:[facility] Start: 01-30-2023 End: 01-30-2023 Patient encounter procedure Nya Lloyd [facility] Start: 01-16-2023 End: 01-17-2023 ambulatory SWETHA BREWER Facility:[facility] Start: 10-04-2022 End: 10-04-2022 Patient encounter procedure Nya Lloyd [facility] Start: 09-07-2022 End: 09-08-2022 ambulatory NYA LEADanile . Facility: Start: 07-26-2022 End: 07-26-2022 Patient encounter procedure Nya Lloyd [facility] Start: 06-05-2022 End: 06-05-2022 ambulatory Med Parkinson Other [email or web address] Other Start: 06-05-2022 Office outpatient visit 25 minutes Med Parkinson [facility] Start: 06-05-2022 End: 06-05-2022 Patient encounter procedure DO Eleazar Modi Work Phone: [facility] [place] Start: 01-24-2022 End: 01-24-2022 ambulatory Med Parkinson Other [email or web address] Other Start: 01-24-2022 Telephone encounter Med Parkinson [facility] V[facility] Surgery Start: 01-23-2022 End: 01-23-2022 ambulatory Theresa Braden Other [email or web address] Other Start: 01-23-2022 Office outpatient visit 15 minutes Theresa Braden [facility] V[facility] Surgery Start: 01-16-2022 End: 01-16-2022 ambulatory Theresa Braden Other [email or web address] Other Start: 01-16-2022 Office outpatient visit 15 minutes Theresa Braden [facility] Vascular Surgery Procedures Date Procedure Procedure Detail Performing Clinician Start: 07-04-2024 Radionuclide myocardial perfusion stress study DO Eleazar Modi Work Phone: Start: 07-02-2024 Plain chest X-ray DO Eleazar Modi Work Phone: Start: 07-02-2024 Blood culture for bacteria, including anaerobic screen DO Eleazar Modi Work Phone: Start: 06-28-2023 Computed tomography angiography of abdominal and/or pelvic blood vessel DO Eleazar Modi Work Phone: Start: 01-30-2023 Cystoscopy Nya Lloyd Start: 06-05-2022 Computed tomography angiography of abdominal and/or pelvic blood vessel DO Eleazar Modi Work Phone: Colonoscopy Nya Ludaniel Hypercholesterolemia (disorder) Nya Lue Hypertensive disorde r, systemic arterial (disorder) Nya Lue Plan of Treatment Date Care Activity Detail Author Start: 07-04-2024 [facility] Start: 07-03-2024 Referral to social media executive [facility] Start: 07-03-2024 Administration of pr ophylactic treatment [facility] Start: 07-02-2024 Hospital admission [facility] Start: 07-02-2024 Blood culture for ba cteria, including anaerobic screen Blood Culture [facility] Patient Education Know your Meds [facility] Work Phone: Patient referral [facility] Work Phone: [facility] Immunizations Immunization Date Immunization Notes Care Provider Fa cility 08-31-2021 influenza virus vaccine, unspecified formulation Nya Gabino [facility] 08-31-2021 SARS-CoV-2 (COVID-19 ) mRNA BNT-162b2 vax Nya Lloyd [facility] 02-17-2021 COVID-19 mRNA, Comirnaty (Pfizer) DO Eleazar Galvez Work Phone: [facility] 01-28-2021 COVID-19 mRNA, Comirnaty (Pfizer) DO Eleazar Galvez Work Phone: [facility] Payers Date Payer Category Payer Medicare [id number] 2024 Medicare [id number] 2023 Medicare [id number] 2023 Self-pay [id number] 1959 Unknown [id number] 2.. [id number] 1950 Unknown [id number] 1950 Unknown [id number] 1950 Unknown [id number] 1950 Unknown [id number] Medicare Anthem MCR PFFS [id number] Private Health Insurance [id number] Unknown [employer] [id number] Unknown [id number] Unknown [id number] Social History Date Type Detail Facility Sex Assigned At [email or web address] Other Start: 02-08-2022 End: 07-17-2024 Tobacco smoking status NHIS Smoker (finding) [facility] Start: 1950 Sex Assigned At Male [facility] Start: 07-26-2022 End: 01-30-2023 Tobacco smoking status Heavy tobacco smoker (finding) [facility] Tobacco smoking status Never [facility] Medical Equipment Procedure Code Equipment Code Equipment Origin al Text Equipment Identifier Dates Abdominal aorta endovascular stent-graft [id number] FDA Start: 02-08-2022 Abdominal aorta endovascular stent-graft [id number] FDA Start: 02-08-2022 Abdominal aorta endovascular stent-graft [id number] FDA Start: 02-08-2022 Goals Date Patient Goal Desired Activity /State Functional Status Date Assessment Result Facility 07-04-2024 Functional status Patient at Baseline [facility] Work Phone: 01-30-2023 Functional Status N/A [facility] 10-04-2022 Functional Status N/A [facility] 07-26-2022 Functional Status N/A [facility] Mental Status Date Assessment Result Facility 07-04-2024 Cognitive function Cognitive Sta tus Patient at Baseline [facility] Work Phone: Clinical Notes 01-16-2022 to 07-04-2024 Note Date & Type Note Facility 07-04-2024 Consult note Note Date/Time July 04, 2024 8:34am [facility] [address] [place] [address] Gastroenterology Consult Note Signed Patient: Kirstie Campos MR#: [id number] : 1950 Acct:[id number] Age/Sex: 74 / M Adm Date: 4 Loc: Room: [address] [place] [address] Type: ADM IN Attending Dr: Serge Mckeon DO Copies to: DO Chela Malone MD Michael R. Frings, DO~ HPI Data of Consult Date of Consultation: 07/04/24 Requesting Physician: Serge Mckeon DO Consult Narrative History of present illness: Mr. Campos is a 74 year old male who was hospitalized for NSTEMI and acute kidney failure who social media executive consulted for dysphagia. Patient reports intermittent dysphagia for years. EGD in 09/2021 showed esophageal stricture and Schatzki's ring s/p balloon dilation. no other GI symptoms cc:: CC: Serge Mckeon DO Review of Systems Review of Systems All other systems reviewed & are negative unless noted below or in HPI [facility] Medical History (Updated 07/04/24 @ 08:34 by Chela Love MD) Current smoker GERD (gastroesophageal reflux disease) Problem List clean-up per request of Phys. EHR Cmte Schatzki's ring EGD w/ dilatation Problem List clean-up per request of Phys. EHR Cmte Hyperlipidemia Problem List clean-up per request of Phys. EHR Cmte Hypertension Problem List clean-up per request of Phys. EHR Cmte CVA (cerebral vascular accident) Problem List clean-up per request of Phys. EHR [facility] Surgical History History of left inguinal hernia repair Problem List clean-up per request of Phys. EHR Cmte Hx of tonsillectomy Problem List clean-up per request of Phys. EHR [facility] Family History (Updated 07/16/23 @ 11:43 by Provider Conversion) Mother No problems noted. Father Heart disease Daughter Graves' disease Legacy FamHx Relation: Daughter(s) Father Hypertension Heart disease Diabetes Mother Family history of mental disorder Legacy FamHx Problem: Diagnosed with Mental Illness Dementia Sister Hypertension Social History Smoking Status: Current every day smoker Tobacco Type: cigarettes Substance Use Type: None Meds Medications and Allergies Allergies lisinopril Allergy (Unknown, Verified 07/02/24 20:31) throat itching lipitor Allergy (Uncoded 07/02/24 19:12) Unknown Reaction Home Medications Super Beta Prostate Tab 1 tab PO DAILY 11/19/19 [History Confirmed 07/02/24] amlodipine 2.5 mg tablet 2.5 mg PO DAILY HTN 11/19/19 [History Confirmed 01/25/22] aspirin 325 mg tablet 325 mg PO DAILY CVA 11/19/19 [History Confirmed 07/03/24] losartan 100 mg tablet 100 mg PO DAILY HTN 11/19/19 [History Confirmed 01/25/22] metoprolol tartrate 25 mg tablet 25 mg PO BID 11/19/19 [History Confirmed 01/25/22] simvastatin 40 mg tablet 20 mg PO QPM Hyperlipidemia 11/19/19 [History Confirmed 01/25/22] omeprazole 40 mg capsule,delayed release 40 mg PO BID 12 weeks #168 caps 08/18/21 [Rx Confirmed 07/02/24] thiamine HCl (vitamin B1) 50 mg tablet 50 mg PO DAILY supplement 01/25/22 [History Confirmed 07/02/24] gabapentin 100 mg capsule 200 mg PO TID 07/02/24 [History Confirmed 07/03/24] Exam Physical Exam Vital Signs: Temp Pulse Resp BP Pulse Ox O2 Del Method 97.4 F L 48 L 16 174/86 H 98 Room Air 07/04/24 08:00 07/04/24 08:00 07/04/24 08:00 07/04/24 08:00 07/04/24 08:00 07/04/24 08:00 Narrative: General appearance: NAD Skin: No jaundice Head: NC/AT Eyes: Anicteric Neck: Supple Lungs: Normal respiratory effort, no use of accessory muscles Abdomen: Nondistended Neuro: Ox3. Results - Gastroenterology Labs Labs: Laboratory Results - last 24 hr 07/03/24 07/03/24 07/04/24 11:49 19:36 04:58 PHA Creatinine Clear 53.06 Sodium 136 Potassium 3.7 Chloride 106 Carbon Dioxide 24.5 Anion Gap 9.2 BUN 21 Creatinine 1.06 Est GFR (CKD-EPI) > 60.0 Glucose 100 Calcium 8.3 L Magnesium 1.9 Total Creatine Kinase 247 H 180 Troponin I High Sens 155.2 H* 124.3 H* A&P - Gastroenterology Assessment/Plan (1) Dysphagia: Plan Mr. Campos is a 74 year old male who was hospitalized for NSTEMI and acute kidney failure who social media executive consulted for dysphagia. +Intermittent dysphagia for years. EGD in 09/2021 showed esophageal stricture and Schatzki's ring s/p balloon dilation. Will arrange for EGD as an outpatient after patient completely medically optimized from the cardiac standpoint(it seems patient was offered risk stratification with pharmacologic stress testing and nuclear myocardial perfusion imaging however patient refused). Please discuss with the patient theimportance of having his cardiac issues addressed Documented By: Chela Love MD 07/04/24827 Signed By: <Electronically signed by Chela Love MD> 07/04/24833 [facility] Work Phone: 1(262) 812-900908-29-2024 Progress note Author Serge Mckeon [facility] July 03, 2024 8:03pm Note Date/Time July 03, 2024 8: 03pm [facility] [address] [place] [address] Hospitalist Progress Note Signed Patient: Kirstie Campos MR#: [id number] : 1950 Acct:[id number] Age/Sex: 74 / M Adm Date: 4 Loc: Room: [address] [place] [address] Type: ADM IN Attending Dr: Serge Mckeon DO Copies to: ~ Date of Service: 07/03/2024 Subjective Subjective Narrative: Patient was seen and examined at bedside. More alert today. No chest pain or shortness of breath. No further syncopal events. Aspirated for food contents earlier today. Physical Examination: GENERAL APPEARANCE: Lethargic, arouses appropriately HEENT: Very dry mucous membranes CARDIAC: Normal S1 and S2. Regular rhythm, intermittently bradycardic LUNGS: Clear to auscultation anteriorly ABDOMEN: Positive bowel sounds. Soft, nontender. No guarding or signs of an acute abdomen MUSCULOSKELETAL: No joint erythema or tenderness. EXTREMITIES: No clubbing, cyanosis or edema NEUROLOGICAL: No focal deficits PSYCHIATRIC: Unable to assess Assessment and plan: 1. NSTEMI 2. Encephalopathy unspecified 3. Acute kidney injury 4. Unspecified arrhythmia 5. Anemia 6. Leukocytosis 7. Dehydration 8. Hypoxic respiratory failure 9. Recurrent syncope Patient's mental status and lethargy yesterday has improved dramatically. Predominantly related to dehydration and alcohol intoxication earlier in the day. No signs of withdrawal. Generally bradycardic sinus rhythm on telemetry. Continue hydration and follow renal function which may be approaching new baseline CKD. Stress test in AM. He has a history of Schatzki's ring status post esophageal dilation number of years ago with GI. I will reconsult the service to consider repeat endoscopy and dilation if warranted Exam Physical Exam Vital Signs: Temp Pulse Resp BP Pulse Ox O2 Del Method 98.3 F 55 L 16 150/85 H 96 Room Air 07/03/24 19:42 07/03/24 19:42 07/03/24 19:42 07/03/24 19:42 07/03/24 19:42 07/03/24 19:46 Objective Lab Results 07/03/24 03:09 07/03/24 03:09 Microbiology Results Microbiology 07/02/24 19:50 Blood - Right Antecubital Blood Culture - Preliminary No Growth 1 Day Meds Allergies and Active Meds Allergies lisinopril Allergy (Unknown, Verified 07/02/24 20:31) throat itching lipitor Allergy (Uncoded 07/02/24 19:12) Unknown Reaction Active Meds: Active Medications Generic Name Dose Route Start Last Admin Trade Name Freq PRN Reason Stop Dose Admin Aspirin 81 mg 07/03/24 09:00 07/03/24 08:37 Aspirin 81 Mg Tab.Chew PO 07/03/25 08:59 81 mg DAILY CLARISA Administration Lactated Ringer's 1,000 mls @ 75 mls/hr 07/02/24 22:00 07/03/24 17:12 Lactated Ringers IV 07/02/25 21:59 75 mls/hr .[id number] CLARISA Administration Sodium Chloride 0 ml 07/03/24 13:07 Sodium Chloride 0.9 % 10 Ml Syringe IV-PUSH 07/03/25 13:06 PRN PRN Flush A&P - Hospitalist Assessment/Plan (1) NSTEMI (non-ST elevated myocardial infarction): Plan as above Documented By: Serge Mckeon DO 07/03/2425 12 Signed By: <Electronically signed by Serge Mckeon DO> 07/03/242002 [facility] Work Phone: 1(165) 651-780608-29-2024 Consult note Author Hamzah Cardona [facility] July 03, 2024 11:00am Note Date/Time July 03, 2024 10 :51am [facility] [address] [place] [address] Cardiology Consult Note Signed Patient: Kirstie Campos MR#: [id number] : 1950 Acct:[id number] Age/Sex: 74 / M Adm Date: 4 Loc: Room: [address] [place] [address] Type: ADM IN Attending Dr: Serge Mckeon DO Copies to: DO Serge Malone DO Stephen M Tann, MD~ Cardiology HPI History of Present Illness Consult Date: 07/03/24 Reason for Consult: Syncope, positive troponin HPI: Mr. Campos is a 74 year old male with no known prior heart disease who was in his normal state of health until 2 days ago when he suddenly experienced an episode of what sounds to be near passing out and significant mental status change. Thepatient does state that he was drinking alcohol at the time. He states he drinks alcohol daily and this today was no different. Patient is not able to relate much of the history as he states he does not remember. When I asked specifically however about antecedent chest pain or dyspnea he does deny such. He was taken to the emergency department at [facility] where ER evaluation showed a nonischemic ECG. Initial troponin was mildly elevated although the patient was also found by laboratory evaluation to be in acute kidney injury with serum creatinine 1.36 up from a baseline of 0.8. With the abnormal troponin patient was transferred to our facility. On my evaluation this morning the patient is sitting up having a echocardiogram performed. Preliminary interpretation of the echocardiogram shows normal resting left ventricular regional wall motion and systolic function with an ejection fraction estimated greater than 55%. There is no evidence of significant valvular heart disease. There is no evidence of pericardial or pleural effusion. On my interview the patient denies current active chest pain. He states his breathing feels normal and at baseline. Patient is actually telling me that he wishes to be discharged to home. He has no new complaints presently. Review of the patient's data has shown mildly abnormal troponin at 227 decreasing to 201 on troponin #2. Serum creatinine remains elevated at 1.33mg/dL. I am now consulted for further cardiac evaluation and management. Review of Systems Review of Systems All other systems reviewed & are negative unless noted below or in HPI [facility] Medical History GERD (gastroesophageal reflux disease) Problem List clean-up per request of Phys. EHR Cmte Schatzki's ring EGD w/ dilatation Problem List clean-up per request of Phys. EHR Cmte Hyperlipidemia Problem List clean-up per request of Phys. EHR Cmte Hypertension Problem List clean-up per request of Phys. EHR Cmte CVA (cerebral vascular accident) Problem List clean-up per request of Phys. EHR [facility] Surgical History History of left inguinal hernia repair Problem List clean-up per request of Phys. EHR Cmte Hx of tonsillectomy Problem List clean-up per request of Phys. EHR Cmte Family History (Updated 07/16/23 @ 11:43 by Provider Conversion) Mother No problems noted. Father Heart disease Daughter Graves' disease Legacy FamHx Relation: Daughter(s) Father Hypertension Heart disease Diabetes Mother Family history of mental disorder Legacy Famx Problem: Diagnosed with Mental Illness Dementia Sister Hypertension Social History Smoking Status: Current every day smoker Tobacco Type: cigarettes Substance Use Type: None Meds Medications and Allergies Allergies lisinopril Allergy (Unknown, Verified 07/02/24 20:31) throat itching lipitor Allergy (Uncoded 07/02/24 19:12) Unknown Reaction Home Medications Super Beta Prostate Tab 1 tab PO DAILY 11/19/19 [History Confirmed 07/02/24] amlodipine 2.5 mg tablet 2.5 mg PO DAILY HTN 11/19/19 [History Confirmed 01/25/22] aspirin 325 mg tablet 325 mg PO DAILY CVA 11/19/19 [History Confirmed 07/03/24] losartan 100 mg tablet 100 mg PO DAILY HTN 11/19/19 [History Confirmed 01/25/22] metoprolol tartrate 25 mg tablet 25 mg PO BID 11/19/19 [History Confirmed 01/25/22] simvastatin 40 mg tablet 20 mg PO QPM Hyperlipidemia 11/19/19 [History Confirmed 01/25/22] omeprazole 40 mg capsule,delayed release 40 mg PO BID 12 weeks #168 caps 08/18/21 [Rx Confirmed 07/02/24] thiamine HCl (vitamin B1) 50 mg tablet 50 mg PO DAILY supplement 01/25/22 [History Confirmed 07/02/24] gabapentin 100 mg capsule 200 mg PO TID 07/02/24 [History Confirmed 07/03/24] Exam Physical Exam Vital Signs: Temp Pulse Resp BP Pulse Ox O2 Del Method 97.6 F 42 L 18 159/90 H 97 Room Air 07/03/24 07:44 07/03/24 07:44 07/03/24 07:44 07/03/24 07:44 07/03/24 07:44 07/03/24 08:00 Const General: comfortable, no acute distress and frail appearing Nutritional Appearance: average body habitus Orientation: alert, awake and oriented x3 HEENT Head: normocephalic and atraumatic Mouth: moist mucous membranes Teeth and gingiva: edentulous Eyes Conjunctivae: conjunctivae normal Sclera: sclerae normal EOM: EOM intact bilaterally Direct ophthalmoscopy: no photophobia Neck Neck: no lymphadenopathy and supple Neck mass: No Carotids: normal carotid upstroke Lymphatic: no lymphadenopathy noted Chest Chest palpation & inspection: normal inspection of the chest Resp Effort & Inspection: normal respiratory effort, able to speak in complete sentences and symmetric chest movement Auscultation: clear to auscultation bilaterally Cardio Jugular venous pressure: no JVD Palpation: normal PMI Rate: bradycardic Rhythm: regular rhythm Heart Sounds: S1 normal, S2 normal and gallop S4 gallop Pulses: radial pulses present and femoral pulses present GI Palpation: soft and no hepatosplenomegaly Skin General: no rashes or lesions noted Neuro General: patient alert, patient awake and patient oriented x3 Cranial Nerves: CN's II-XII intact bilaterally Cognition: abnormal cognition Speech: abnormal speech Motor: muscle tone normal throughout Sensory Exam: no sensory deficits noted Extrem General: no clubbing, cyanosis or edema Psych Appearance: disheveled Affect: flat Speech and Movement: delayed speech Attitude: guarded Thought Process: loose association and tangential Insight: limited Judgment: limited YANN Risk Score YANN Risk Score Predictor Historical: Age > 65 Years Old Presentation: Increased Cardiac Marker Score Risk Score (0-7): 2 Results - Cardiology Labs 07/03/24 03:09 07/03/24 03:09 Lab results: Cardiac Enzymes 07/02/24 07/03/24 Range/Units 19:50 03:09 AST 22 (13-39) U/L Total Creatine Kinase 453 H 324 H (30-223) U/L B-Natriuretic Peptide 62.0 (5-100) pg/mL CBC 07/02/24 07/03/24 Range/Units 19:45 03:09 RBC 3.85 L 3.73 L (3.90-5.60) X10E6/uL Hgb 11.7 L 11.4 L (13.0-17.0) g/dL Hct 35.8 L 33.9 L (38.8-50.0) % Plt Count 238 214 (150-450) x10E3/uL Neut # (Auto) 9.3 H 5.8 (1.8-7.7) x10E3/uL Lymph # (Auto) 1.5 2.0 (1.00-4.8) x10E3/uL [place] # (Auto) 1.0 H 0.9 H (0.0-0.8) x10E3/uL Eos # (Auto) 0.1 0.2 (0.0-0.45) x10E3/uL Baso # (Auto) 0.0 0.1 (0.0-0.2) x10E3/uL Comprehensive Metabolic Panel 07/02/24 07/03/24 Range/Units 19:50 03:09 Sodium 139 141 (136-145) mmol/L Potassium 3.8 3.7 (3.5-5.1) mmol/L Chloride 106 111 H (98-107) mmol/L Carbon Dioxide 24.7 23.3 (21.0-31.0) mmol/L BUN 30 H 29 H (7-25) mg/dL Creatinine 1.36 H 1.33 H (0.70-1.30) mg/dL Glucose 155 H 95 (70-100) mg/dL Calcium 8.9 8.3 L (8.6-10.3) mg/dL AST 22 (13-39) U/L ALT 11 (7-52) U/L Alkaline Phosphatase 37 (34-104) U/L Total Protein 5.8 L (6.4-8.9) gm/dL Albumin 3.8 (3.5-5.7) gm/dL Intake and Output 07/02/24 07/03/24 07/03/24 23:59 07:59 15:59 Intake Total 1050 / 1050 Output Total 250 / 250 Balance 800 / 800 Intake: IV 1000 / 1000 Lactated Ringers 1,000 ml @ 125 1000 / 1000 mls/hr IV .Q8H CLARISA Rx#: [id number] Oral 50 / 50 Output: Urine 250 / 250 Other: # Incontinent Voids 2 # Bowel Movements 0 Weight 63.1 kg 62.1 kg Patient Weight 07/03/24 23:59 Weight 62.1 kg Lab 07/02/24 19:50 PT 12.5 INR 1.1 APTT 34.9 EKG Interpretations EKG Attestation EKG: I reviewed this ECG and interpreted as documented below: Dysrhythmias Sinus rhythms and dysrhythmias: sinus rhythm Blocks, axis, hypertrophy, ST abn Repolarization changes or abnormalities: nonspecific abnormality, ST segment, and/or T wave A&P - Cardiology (1) NSTEMI (non-ST elevated myocardial infarction): Assessment/Problem Details: Appears clinically and electrocardiographically to be a type II non-STEMI. I see no evidence of an active underlying ischemic process/acute coronary syndrome. Normal echocardiogram findings are certainly comforting and indicative of low risk. Plan: 1. Invasive diagnostic and management strategy is not recommended particularly in light of current acute kidney injury. 2. Would favor medical management of type II non-STEMI: Aspirin 81 mg daily. Ithink full systemic anticoagulation with enoxaparin can be discontinued at this point. Statin therapy should be resumed. Agree at this point with holding beta-cookie given relative bradycardia. 3. Recommend further risk stratification with pharmacologic stress testing and nuclear myocardial perfusion imaging. I have offered this to the patient for tomorrow morning but at this point he has refused. Pending a continued favorable clinical evolution this could certainly be done in the outpatient setting following hospital discharge. Code(s): I21.4 - Non-ST elevation (NSTEMI) myocardial infarction Plan Moderate to high complexity medical decision making as outlined above. Thank you very much for this kind consultation and for allowing me to dissipate the care of this very pleasant patient. Documented By: Hamzah Cardona MD 07/03/24 1048 Signed By: <Electronically signed by Hamzah Cardona MD> 07/03/24 1100 [facility] Work Phone: 1(188) 113-914908-28-2024 History and physical note Author Serge Mckeon [facility] July 02, 2024 9:48pm Note Date/Time July 02, 2024 7: 22pm [facility] [address] [place] [address] Hospitalist H&P Signed Patient: Kirstie Campos MR#: [id number] : 1950 Acct:[id number] Age/Sex: 74 / M Adm Date: 4 Loc: Room: [address] [place] [address] Type: ADM IN Attending Dr: Serge Mckeon DO Copies to: DO Serge Malone DO~ HPI DATE OF EXAMINATION: 07/02/24 CHIEF COMPLAINT: Syncope HISTORY OF PRESENT ILLNESS: This patient is a 74-year-old male who presented to [place] emergency department earlier today following a reported syncopal event. Story provided yolis from [facility] at outside ER was at the patient was day drinking with his family andhe briefly slumped over to the side but regained consciousness. There was also reported syncopal event this past evening as well. High-sensitivity troponin was elevated around 350 without EKG changes and traumatic workup and other labs were unremarkable. Aspirin and a dose of therapeutic Lovenox was reportedly given. On arrival to the progressive unit patient continues severely obtunded and fatigued appearing. Despite this appearance of critical illness and somnolence he has remarkably stable vital signs at this time. He is slow but appropriately responsive and tells me that he feels terrible but denies pain or shortness of breath. He cannot relate much further history besides this. This lethargy and malaise is a dramatic change from reported appropriate orientation at OSH. Accompanying records from outside ER reveal documented vital signs throughout the afternoon that are similar instability, normotensive. Outside labs show leukocytosis of 12.6 and very mild normocytic anemia with a hemoglobin of 12.3, platelets 226. He had a predominance of neutrophils but no immature forms noted. Normal coags and a BUN/creatinine of 32.0/1.28. High-sensitivity troponin 350.8, NT proBNP appropriate at 785 (less than 1800 is normal per the scale) ethanol level 24, lactic acid mildly elevated at 2.4. Potassium was low at 3.2. Magnesium normal 2.2. Old infarcts and chronic microvascular ischemic changes noted on head CT cervical spine images benign as well. 162 mg of aspirin was provided x 1 and 1 mg/kg 65 mg of Lovenox x 1 also administered this afternoon. Report from chest x-ray is nonacute. 2 Accompanying EKGs revealed a appropriate sinus rhythm. Taken 1/2-hour apart roughly second EKG reported as junctional rhythm however low voltage P waves are apparent. No obvious developing dynamic ischemic changes on comparison are noted. No V1 leadwith some progressing notching on comparison. This was read as age-indeterminate posterior infarct on first of 2 but not second EKG. Physical Examination: GENERAL APPEARANCE: Lethargic, arouses appropriately HEENT: Very dry mucous membranes CARDIAC: Normal S1 and S2. Regular rhythm, intermittently bradycardic LUNGS: Clear to auscultation anteriorly ABDOMEN: Positive bowel sounds. Soft, nontender. No guarding or signs of an acute abdomen MUSCULOSKELETAL: No joint erythema or tenderness. EXTREMITIES: No clubbing, cyanosis or edema NEUROLOGICAL: No focal deficits PSYCHIATRIC: Unable to assess Assessment and plan: 1. NSTEMI 2. Encephalopathy unspecified 3. Acute kidney injury 4. Unspecified arrhythmia 5. Anemia 6. Leukocytosis 7. Dehydration 8. Hypoxic respiratory failure 9. Recurrent syncope Patient arrives to the progressive unit following transfer significantly obtunded. He had reportedly 2 syncopal episodes prior to his OSH ER arrival butwas reportedly appropriately oriented before transfer. Patient eventually does open his eyes and provide minimal responses as above and clinically is immediately dehydrated appearing. No pinpoint pupils. Respond somewhat appropriately minimally. He has no hypercapnia, ammonia is normal. Alcohol intake earlier today was endorsed and reportedly only 1-2 beers. Alcohol level was only 24 at outside facility. Lethargy persists but hemodynamics remained stable after 1 L fluid bolus after arrival. His extensive stat workup is largely unrevealing. ABG shows hypoxia but O2 requirement is fairly minimal with normal saturations on room air mostly. IV fluids will be continued throughout the evening. February 2022 serum creatinine 0.85 suggesting this is a likely kidney injury. Trend with a.m. labs. Consult to cardiology. Maintain telemetry. Follow electrolytes and replete as needed. Intermittently bradycardic and occasionally reading as junctional however generally seems to have low voltage but normal P waves with each QRS. Troponin of 350 at outside facility has down trended to the 200s and EKG shows no obvious ischemic or dynamic changes. Syncope seems to be his primary complaint on presentation with events x 2. Received a dose of therapeutic Lovenox this afternoon. Will provide continuous therapeutic dosing with second dose to be administered early tomorrow morning. As long as patient is protecting airway he can be advanced as tolerated to regular diet once instructed by cardiology to remain n.p.o. for cath. Follow blood counts with mild anemia and leukocytosis. Blood cultures were sentwith no other evidence of occult infection. Urinalysis will be obtained and infectious will hold off on any antibiotics. [facility] Medical History GERD (gastroesophageal reflux disease) Problem List clean-up per request of Phys. EHR Cmte Schatzki's ring EGD w/ dilatation Problem List clean-up per request of Phys. EHR Cmte Hyperlipidemia Problem List clean-up per request of Phys. EHR Cmte Hypertension Problem List clean-up per request of Phys. EHR Cmte CVA (cerebral vascular accident) Problem List clean-up per request of Phys. EHR Cmte Surgical History History of left inguinal hernia repair Problem List clean-up per request of Phys. EHR Cmte Hx of tonsillectomy Problem List clean-up per request of Phys. EHR Cmte Family History (Updated 07/16/23 @ 11:43 by Provider Conversion) Mother No problems noted. Father Heart disease Daughter Graves' disease Legacy FamHx Relation: Daughter(s) Father Hypertension Heart disease Diabetes Mother Family history of mental disorder Legacy FamHx Problem: Diagnosed with Mental Illness Dementia Sister Hypertension Social History Smoking Status: Current every day smoker Tobacco Type: cigarettes Substance Use Type: None Meds Medications and Allergies Allergies lisinopril Allergy (Unknown, Verified 07/02/24 20:31) throat itching lipitor Allergy (Uncoded 07/02/24 19:12) Unknown Reaction Home Medications Super Beta Prostate Tab 1 tab PO DAILY 11/19/19 [History Confirmed 07/02/24] amlodipine 2.5 mg tablet 2.5 mg PO DAILY HTN 11/19/19 [History Confirmed 01/25/22] aspirin 325 mg tablet 325 mg PO DAILY CVA 11/19/19 [History Confirmed 02/08/22] losartan 100 mg tablet 100 mg PO DAILY HTN 11/19/19 [History Confirmed 01/25/22] metoprolol tartrate 25 mg tablet 25 mg PO BID 11/19/19 [History Confirmed 01/25/22] simvastatin 40 mg tablet 20 mg PO QPM Hyperlipidemia 11/19/19 [History Confirmed 01/25/22] omeprazole 40 mg capsule,delayed release 40 mg PO BID 12 weeks #168 caps 08/18/21 [Rx Confirmed 07/02/24] thiamine HCl (vitamin B1) 50 mg tablet 50 mg PO DAILY supplement 01/25/22 [History Confirmed 07/02/24] gabapentin 100 mg capsule mg PO TID 07/02/24 [History] Exam Physical Exam Vital Signs: Temp Pulse Resp BP Pulse Ox O2 Del Method 98.3 F 65 14 125/74 94 L Room Air 07/02/24 19:16 07/02/24 19:16 07/02/24 19:16 07/02/24 19:16 07/02/24 19:16 07/02/24 19:16 Assessment & Plan Assessment/Plan (1) NSTEMI (non-ST elevated myocardial infarction): Plan as above IP vs OBS Justification Based on differential dx, clinical care plan, and risk of adverse events, if untreated, in my clinical judgement this patient requires an acute care setting as: INPATIENT because of an expectation of an over 2 midnight stay. Estimated length of stay (# of days): 3 Documented By: Serge Mckeon DO 07/02/24 19 18 Signed By: <Electronically signed by Serge Mckeon DO> 07/02/24 2148 [facility] Work Phone: 1(181) 177-471509-11-2023 Evaluation note* Encounter Date Diagnosis Assessment Notes Treatment Notes Treatment Clinical Notes Jul, Infrarenal abdominal aortic aneurysm (AAA) without rupture (ICD-10 - I71.43) We reviewed today's 1 year follow-up CT scan indicating AAA 4.3 cm in greatest diameter. This is improvement since 1 year ago where AAA measured 4.[address] shows endovascular repair with patent stent graft and the [place] aneurysmal sac appears to have decreased in [...] his risks and is unmotivated to quit. [email or web address] Other 03-28-2023 Evaluation + Plan note Diagnostic Tests Pending * PSA Total 01/30/23 [facility] 03-28-2023 Hospital Discharge instructions Patient Education 01/30/2023 [...] including vitamins, herbs, eye drops, creams, and xnla-jdn-wgysxwf medicines. Any problems you or family members [...] provider tells you to take them. ?Taking qrgx-dbc-lepqtht medicines, vitamins, herbs, and supplements. Follow instructions [...] Follow these instructions at home: Medicines Take xnhh-vke-blohqnx and prescription medicines only as told by [...] 10/19/2001 Document Revised: 10/14/2019 Document Reviewed: 10/14/2019 [employer] Patient Education 2019 [employer] Follow Up Care 01/16/2023 13:49:28 With:Gabino MARTINEZ, NETTIE Pham, URO Address: [address], [place] [phone] When:Within 6 Month(s) Comments:w/ NEHEMIAH [facility] 03-28-2023 NoteUrology Cystoscopy Cystoscopy is a procedure [...] including vitamins, herbs, eye drops, creams, and fwpa-don-mdyfrsl medicines. ? Any problems you or family [...] tells you to take them. ? Taking xtpa-ujg-rlptgns medicines, vitamins, herbs, and supplements. ? Follow [...] these instructions at home: Medicines ? Take sbfc-eqn-zvvgknr and prescription medicines only as told by [...] care provider. This is importa (more content notincluded)...[facility]11-30-2022 Hospital Discharge instructions Patient Education [...] urethra. Follow these instructions at home: Take wwlh-cht-sadmiaz and prescription medicines only as told by [...] 10/22/2006 Document Revised: 09/16/2019 Document Reviewed: 11/26/2017 [employer] Patient Education 2020 [employer] Follow Up Care 07/26/2022 11:44:52 With:Gabino MARTINEZ, Nya Borjas URL, URO Address: When:3 months Comments:Fatimah f/u & PVR [facility] 09-21-2022 Hospital Discharge instructions Patient Education [...] prostate. Follow these instructions at home: Take nkib-tlv-rfynhwe and prescription medicines only as told by [...] 10/19/2001 Document Revised: 01/04/2019 Document Reviewed: 07/12/2017 [employer] Patient Education 2020 [employer] 07/26/2022 11:24:57 Benign Prostatic Hyperplasia Benign Prostatic [...] urethra. Follow these instructions at home: Take ntaj-pes-bbogycf and prescription medicines only as told by [...] 10/22/2006 Document Revised: 09/16/2019 Document Reviewed: 11/26/2017 [employer] Patient Education 2020 [employer] Follow Up Care 06/28/2022 10:03:36 With:Gabino MARTINEZ, Nya Borjas, URL, URO Address: When:3 months Comments:PSA F/T [facility] 08-01-2022 Evaluation note* Encounter Date Diagnosis Assessment [...] He understands and agrees with the plan. [email or web address] Other 03-22-2022 Evaluation note* Encounter Date Diagnosis Assessment Notes Treatment Notes Treatment Clinical Notes Jan, AAA (abdominal aortic aneurysm) without rupture (ICD-10 - I71.4) [email or web address] Other 03-21-2022 Evaluation note* Encounter Date Diagnosis [...] - Z78.9) Jan, Smoker (ICD-10 - F17.200) [email or web address] Other 03-14-2022 Evaluation note* Encounter Date Diagnosis [...] agrees with this plan, denies any questions. [email or web address] Other Evaluation + Plan note Future Appointments Appointment Date:10/04/2022 08:30:00 AM Scheduled Provider:Nya Lloyd MD Location:[facility] Appointment Type:URO Office Visit Diagnostic Tests Pending * PSA Free & Total 07/26/22 [facility] evaluation + Plan note Future Appointments Appointment Date:01/03/2023 08:00:00 AM Scheduled Provider:Nya Lloyd MD Location:[facility] Appointment Type:URO Office Visit [facility] evaluation noteNo assessment information available [facility] Work Phone: Evaluation note* Diagnosis Onset Date Resolution Status Dysphagia acute NSTEMI (non-ST elevated myocardial infarction) acute [facility] Work Phone: Evaluation note* Diagnosis Onset Date Resolution Status Dysphagia acute NSTEMI (non-ST elevated myocardial infarction) resolved [facility] Work Phone: History general Narrative - Reported* Type Description Date Medical History AAA Medical History Lumbar Disc Disorder Medical History PVD Medical History HTN Medical History ETOH abuse Medical History CVA Medical History CVOD Medical History DJD Surgical History Inguinal Hernia repair 1992 Surgical History tonsillectomy Hospitalization History See above Hospitalization History CVA 2009 [email or web address] Other Hospital course Narrative No data available for this section [facility] Hospital Discharge instructions No data available for this section [facility] progress note No data available for this section [facility] progsrag note Author Hamzah Cardona [facility] July 04, 2024 2:58pm Note Date/Time July 04, 2024 2: 58pm [facility] [address] [place] [address] Cardiology Progress Note Signed Patient: Kirstie Campos MR#: [id number] : 1950 Acct:[id number] Age/Sex: 74 / M Adm Date: 4 Loc: Room: [address] [place] [address] Type: ADM IN Attending Dr: Serge Mckeon DO Copies to: ~ Date of Service: 07/04/2024 Subjective Principal diagnosis: Non-AZ troponin elevation Interval history: Mr. Campos is a doing well this morning. No anginal or other untoward cardiovascular symptoms to relate at this time. His mental status appears more clear. Labs have shown normalization of renal function. Troponin curve has continued to trend downward. Risk stratification be nuclear myocardial perfusion imaging has been done today. These results have returned abnormal butnot high risk. There is suggestion of partially reversible defect in the inferior wall but well-preserved left ventricular systolic function. Patient his family state that he wishes to leave today and not stay the weekend. He is however amenable to considering outpatient cardiac catheterization based on these recent abnormal stress test results. Exam Physical Exam Vital Signs: Temp Pulse Resp BP Pulse Ox O2 Del Method 98.1 F 51 L 16 167/87 H 97 Room Air 07/04/24 12:07/04/24 12:07/04/24 12:07/04/24 12:07/04/24 12:07/04/24 12:00 Const General: comfortable, no acute distress and frail appearing Nutritional Appearance: average body habitus Orientation: alert, awake and oriented x3 HEENT Head: normocephalic and atraumatic Mouth: moist mucous membranes Teeth and gingiva: edentulous Eyes Conjunctivae: conjunctivae normal Sclera: sclerae normal EOM: EOM intact bilaterally Direct ophthalmoscopy: no photophobia Neck Neck: no lymphadenopathy and supple Neck mass: No Carotids: normal carotid upstroke Lymphatic: no lymphadenopathy noted Chest Chest palpation & inspection: normal inspection of the chest Resp Effort & Inspection: normal respiratory effort, able to speak in complete sentences and symmetric chest movement Auscultation: clear to auscultation bilaterally Cardio Jugular venous pressure: no JVD Palpation: normal PMI Rate: bradycardic Rhythm: regular rhythm Heart Sounds: S1 normal, S2 normal and gallop S4 gallop Pulses: radial pulses present and femoral pulses present GI Palpation: soft and no hepatosplenomegaly Skin General: no rashes or lesions noted Neuro General: patient alert, patient awake and patient oriented x3 Cranial Nerves: CN's II-XII intact bilaterally Cognition: abnormal cognition Speech: abnormal speech Motor: muscle tone normal throughout Sensory Exam: no sensory deficits noted Extrem General: no clubbing, cyanosis or edema Psych Appearance: disheveled Affect: flat Speech and Movement: delayed speech Attitude: guarded Thought Process: loose association and tangential Insight: limited Judgment: limited Objective Labs 07/03/24 03:09 07/04/24 04:58 Labs: Laboratory Results - last 24 hr 07/03/24 07/04/24 19:36 04:58 PHA Creatinine Clear 53.06 Sodium 136 Potassium 3.7 Chloride 106 Carbon Dioxide 24.5 Anion Gap 9.2 BUN 21 Creatinine 1.06 Est GFR (CKD-EPI) > 60.0 Glucose 100 Calcium 8.3 L Magnesium 1.9 Total Creatine Kinase 180 Troponin I High Sens 124.3 H* A&P - Cardiology (1) NSTEMI (non-ST elevated myocardial infarction): Assessment/Problem Details: Appears clinically and electrocardiographically to be a type II non-STEMI. Nuclear myocardial perfusion imaging study abnormal but not high risk. Plan: 1. I have offered the possibility for the patient to stay in hospital over the weekend for cardiac catheterization on Sunday. Patient and his family refused stating they would like to be discharged home and pursue outpatient follow-up and potential outpatient cardiac catheterization. I think this is reasonable strategy provided the patient is on guideline directed medical therapy which we will recommend as follows: Aspirin 81 mg daily Losartan 100 mg daily Metoprolol tartrate 25 mg twice daily Simvastatin 20 mg nightly Amlodipine 2.5 mg daily 2. Agree with initiation of home health care 3. Will arrange outpatient follow-up in [facility] cardiology clinic. At first follow- up appointment scheduling the patient for outpatient cardiac catheterization can be considered. Code(s): I21.4 - Non-ST elevation (NSTEMI) myocardial infarction Plan Moderate to high complexity medical decision making as outlined above. Thank you very much for this kind consultation and for allowing me to dissipate the care of this very pleasant patient. Time spent with patient Time Spent With Patient (min): 30 Documented By: Hamzah Cardona MD 07/04/24 1454 Signed By: <Electronically signed by Hamzah Cardona MD> 07/04/24 1458 [facility] Work Phone: Chief Complaint and Reason for Visit Chief Complaint i71.4 Chief Complaint i71.4 Age Related Debility Chief Complaint nstemi, syncope nstemi, syncope nstemi, syncope Reason for Visit Dysphagia NSTEMI (non-ST elevated myocardial infarction) Chief Complaint nstemi, syncope nstemi, syncope nstemi, syncope Amb Documentation [facility] 07/04 Reason for Visit Dysphagia NSTEMI (non-ST elevated myocardial infarction) Advance Directives No Advanced Directives Records Found Advance Directive Response Recorded Date/ Time Advance Directives No September 11, 2018 1:33pm Summary Purpose Family History Relationship Condition Age at Onset Recorded Date/T junior daughter Graves' disease Unknown father Unknown Hypertension Unknown Heart disease Unknown Diabetes mellitus Unknown mother Unknown Family history of mental disorder Unknown Dementia Unknown sister Hypertension Unknown Relationship Condition Age at Onset Recorded Date/T junior father Heart disease Unknown daughter Graves' disease Unknown father Unknown Hypertension Unknown Heart disease Unknown Diabetes mellitus Unknown mother Unknown Family history of mental disorder Unknown Dementia Unknown sister Hypertension Unknown No Family History Records Found Additional Source Comments REASON FOR VISIT (unrecogniz ed section and content) VASC 6 MONTH FU; ABDOMINAL U LTRASOUND 9ACT SCAN FOLLOW UP; [facility] 01/20No InformationVASC 3 MONTH FOLLOW UP; [facility], Follow-up after PEVAR1 YR F.U; CTA [facility] ON 06/28 Care Teams (unrecognized sec tion and content) Team Status: Active Member Role Status Dates Eleazar Modi DO Primary Care Provider Active Team Status: Inactive Member Role Status Dates Eleazar Modi DO Primary Care Provider Active Med Parkinson MD Attending Provider Active Team Status: Inactive Member Role Status Dates Eleazar Modi DO Primary Care Provider, Tracey loving Active Team Status: Inactive Member Role Status Dates Eleazar Modi DO Primary Care Provider Active Start: July 02, 2024 End: July 04, 2024 Serge Mckeon DO Admit Provider, Atte nding Provider Active Start: July 02, 2024 End: July 04, 2024 Hamzah Cardona MD Referring Provider Active Star t: July 02, 2024 End: July 04, 2024 Cruz Bule MD Other Provider Active Start : July 02, 2024 End: July 04, 2024 Miguel A Pace APRN Other Provider Active St art: July 02, 2024 End: July 04, 2024 Chela Love MD Other Provider Active Start: Jun End: July 04, 2024 Didi Stovall DO Other Provider Active Start: July 02, 2024 End: July 04, 2024 Team Status: Active Member Role Status Dates Eleazar Modi DO Primary Care Provider Active Start: July 03, 2024 Serge Mckeon DO Admit Provider, Othe r Provider Active Start: July 03, 2024 Yadira Bass RN Other Provider Active Star t: July 03, 2024 Hamzah Cardona MD Attending Provider, Other Provider Active Start: July 03, 2024 Benjie Robert MD Other Provider Active Start: July 03, 2024 Lisa Grande MD Other Provider Active Start: July 03, 2024 Kassidy Lopez DO Other Provider Active Start: July 03, 2024 Team Status: Active Member Role Status Dates Eleazar Modi DO Primary Care Provider Active Start: July 04, 2024 Serge Mckeon DO Admit Provider, Othe r Provider Active Start: July 04, 2024 Yadira Bass RN Other Provider Active Star t: July 04, 2024 Hamzah Cardona MD Referring Provider, Other Provider Active Start: July 04, 2024 Benjie Robert MD Other Provider Active Start: July 04, 2024 Lisa Grande MD Other Provider Active Start: July 04, 2024 Kassidy Lopez DO Other Provider Active Start: July 04, 2024 Cruz Blue MD Other Provider Active Start : July 04, 2024 Miguel A Pace APRN Other Provider Active St art: July 04, 2024 Chela Love MD Attending Provider, Other Provider Active Start: July 04, 2024 Didi Stovall , Other Provider Active Start: July 04, 2024 Team Status: Active Member Role Status Dates Eleazar Modi DO Primary Care Provider Active Start: July 08, 2024 Julia Hopkins , LORNA Attending Provider Active S tart: July 08, 2024 Team Status: Inactive Member Role Status Dates Eleazar Modi DO Primary Care Provider Active Start: July 17, 2024 End: July 17, 2024 Benjie Robert MD Attending Provider Active Start: July End: July 17, 2024 Goals (unrecognized section and content) Goals may be documented in a n alternate section (unrecognized sect ion and content) No Status Records FoundNo Status Records FoundNo Status Records Found INFORMATION SOURCE (unrecogn ized section and content) DATE CREATED AUTHOR 10/06/2022 [facility] DATE CREATED AUTHOR AUTHOR'S ORGANIZ ATION 10/04/2023 [facility] DATE CREATED AUTHOR AUTHOR'S ORGANIZ ATION 07/28/2024 [facility] FOR RECORDS PERTAINING TO PATIENTS WHO ARE [...] BE BASED ON THE PRIMARY CLINICAL RECORDS. [employer] provides no warranty or guarantee of the accuracy or completeness of information in this document.
--- NOTE | 2024-09-10 20:00 | XR_ITS ---
[address] [address] Patient Name: KIRSTIE BOSWELL MRN: [id number] date: 1950 Sex: M Assigned Patient Location: ER Current Patient Location: ER Accession/Order Number: [id number] Exam Date: 09/10/2024 20:38 Report Date: 09/10/2024 23:51 At the request of: JOSTIN MEDINA Procedure: XR chest 2V EXAM: XR chest 2V HISTORY: cough COMPARISON: None FINDINGS/IMPRESSION: 1. Patchy consolidation of the right midlung and right lung base, consistent with inflammation/infection. Left lung is clear. 2. No pneumothorax. No pleural effusion. 3. Heart size and mediastinal contours are normal 4. No acute osseous abnormality. 5. Upper abdominal bowel gas pattern is nonspecific. Electronically authenticated by: LUCIANA RIOS Date: 09/10/2024 23:51
--- NOTE | 2024-09-10 20:02 | ED_ITS ---
HPI HPI - General Adult General Chief complaint: Upper Respiratory Infection Stated complaint: Upper Respiratory Infection Time Seen by Provider: 09/10/24 19:44 Source: patient and family Mode of arrival: Wheelchair Limitations: no limitations History of Present Illness HPI narrative: Patient presented to the emergency department for evaluation of cough, sputum production. Patient is presenting with his daughter, son-in-law. He states that they [facility] days ago, he seemed to have some nasal congestion, chest congestion but seem to be doing okay. They checked on him today and when he got there it seemed that he was worse. They said he was coughing, when they heard him breathing they could hear crackling in his lungs and gurgling as he was breathing in and out. He has no complaints of respiratory distress, shortness of breath. She states that while they were there he started coughing up really thick green chunks of sputum. Denies fevers, chills, patient denies short of breath. No other at this time Related Data Home Medications ?Medication ?Instructions ?Recorded ?Confirmed amlodipine 07/02/24 gabapentin 07/02/24 metoprolol tartrate 07/02/24 omeprazole 07/02/24 simvastatin 07/02/24 amlodipine 2.5 mg tablet 2.5 mg PO DAILY 09/10/24 09/10/24 aspirin 81 mg tablet,delayed 81 mg PO DAILY 09/10/24 09/10/24 release atorvastatin 20 mg tablet 20 mg PO DAILY 09/10/24 09/10/24 gabapentin 100 mg capsule 100 mg PO BID 09/10/24 09/10/24 isosorbide mononitrate 30 mg 30 mg PO DAILY 09/10/24 09/10/24 tablet,extended release 24 hr losartan 100 mg tablet 100 mg PO DAILY 09/10/24 09/10/24 metoprolol tartrate 25 mg tablet 25 mg PO BID 09/10/24 09/10/24 omeprazole 20 mg capsule,delayed 20 mg PO DAILY 09/10/24 09/10/24 release Previous Rx's ?Medication ?Instructions ?Recorded levofloxacin 750 mg tablet 750 mg PO DAILY 7 days #7 tabs 09/11/24 Allergies Allergy/AdvReac Type Severity Reaction Status Date / Time atorvastatin (From Lipitor) Allergy Severe Unknown Verified 09/10/24 19:59 lisinopril Allergy Severe Unknown Verified 09/10/24 19:59 Opioid HPI Opioid Management Most Recent Opioid Data: No Data to Display Review of Systems ROS Narrative Negative unless otherwise stated in the HPI Exam Narrative Exam Narrative: General: NAD, AAOx3, no distress Neck: Supple, no LAD, negative Kernig/Brudzinski, non meningeal, no bruit Respiratory: respiratory effort normal, speaks in full sentences, no tripod position, no accessory muscle use. Lungs with right lobe crackles while breathing Cardiac: Regular rate and rhythm, no edema, regular s1/s2, no m/g/r Abdomen: Soft, ND/NT. No evidence of fluid wave. No pulsatile masses on exam, rebound tenderness, Rooney sign or pain over Mcburney's point. Constitutional Vital Signs, click to edit/add: Last Vital Signs Temp 98.2 F 09/10/24 19:39 Pulse 69 09/10/24 22:15 Resp 16 09/10/24 22:15 BP 146/86 H 09/10/24 22:30 Pulse Ox 94 L 09/10/24 22:15 O2 Del Method Room Air 09/10/24 22:15 Course Vital Signs Vital signs: Vital Signs Temperature 98.2 F 09/10/24 19:39 Pulse Rate 69 09/10/24 19:39 Respiratory Rate 22 H 09/10/24 19:39 Blood Pressure 163/86 H 09/10/24 19:39 Pulse Oximetry 96 09/10/24 19:39 Oxygen Delivery Method Room Air 09/10/24 19:39 Temperature 98.2 F 09/10/24 19:39 Pulse Rate 69 09/10/24 22:15 Respiratory Rate 16 09/10/24 22:15 Blood Pressure 146/86 H 09/10/24 22:30 Pulse Oximetry 94 L 09/10/24 22:15 Oxygen Delivery Method Room Air 09/10/24 22:15 Medical Decision Making MDM Narrative Medical decision making narrative: MDM Patient with history as above presented with cough chest congestion. History obtained from patient, daughter. Patient was nontoxic, stable. Ambulatory. Exam as above. EKG reviewed. Labs reviewed. Independently reviewed imaging. Reviewed external records. Differential diagnosis considered. Overall presentation is consistent with pneumonia Advanced guidance has been given. Vss, pex is benign at this time. Pt to fu with pcp 1-2 days for reeval, rter should sx worsen, persist or become worrysome in any way. All incidental laboratory studies, EKG, radiologic findings have been noted and discussed with patient. Patient was reevaluated with a benign exam at this time. Pt expressed understanding and agreement with plan of care at this time. Will fu as planned. Pt stable for discharge. Lab Data Labs: Lab Results 09/10/24 Range/Units 20:15 WBC 8.4 (4.0-11.0) 10^3/uL RBC 3.63 L (4.70-6.10) 10^6/uL Hgb 11.3 L (14.0-18.0) g/dL Hct 34.7 L (42.0-54.0) % MCV 95.6 H (80.0-94.0) fL MCH 31.1 (25.9-34.0) pg MCHC 32.6 (29.9-35.2) g/dL RDW 13.6 (11.0-15.0) % Plt Count 262 (150-450) 10^3/uL MPV 9.3 L (9.5-13.5) fL Neut % (Auto) 57.8 (43.0-75.0) % Lymph % (Auto) 25.4 (20.5-60.0) % Clayton % (Auto) 9.1 (1.7-12.0) % Eos % (Auto) 6.7 (0.9-7.0) % Baso % (Auto) 0.6 (0.2-2.0) % Neut # (Auto) 4.8 (1.4-6.5) 10^3/uL Lymph # (Auto) 2.1 (1.2-3.8) 10^3/uL Clayton # (Auto) 0.8 (0.3-0.8) 10^3/uL Eos # (Auto) 0.6 (0.0-0.7) 10^3/uL Baso # (Auto) 0.1 (0.0-0.1) 10^3/uL Abs Immat Gran (auto) 0.03 (0.00-0.03) 10^3/uL Imm/Tot Granulo (auto) 0.4 (0.0-0.5) % PT 10.2 (9.0-11.6) sec INR 0.96 APTT 28.9 (22.3-36.2) sec Sodium 141 (136-145) mmol/L Potassium 3.8 (3.5-5.1) mmol/L Chloride 105 (98-107) mmol/L Carbon Dioxide 29.8 (21.0-32.0) mmol/L Anion Gap 10.0 BUN 22.0 H (7.0-18.0) mg/dL Creatinine 0.91 (0.70-1.30) mg/dL Est GFR ( Amer) >60 (>=60 mL/min/1.73m^2) Est GFR (Non-Af Amer) >60 (>=60 mL/min/1.73m^2) BUN/Creatinine Ratio 24.2 Glucose 111 H (74-106) mg/dL Calcium 9.0 (8.5-10.1) mg/dL Total Bilirubin 0.2 (0.2-1.0) mg/dL AST 14 L (15-37) U/L ALT 25 (16-63) U/L Alkaline Phosphatase 51 (46-116) U/L Troponin I High Sens 7.6 (4.0-76.1) pg/mL NT-Pro-B Natriuret Pep 290.0 (<=1800.0) pg/mL Total Protein 6.2 L (6.4-8.2) g/dL Albumin 3.0 L (3.4-5.0) g/dL Globulin 3.2 g/dL Albumin/Globulin Ratio 0.9 Influenza Type A Ag Negative Influenza Type B Ag Negative SARS-CoV-2 Ag (CV2AG) Negative (NEGATIVE) Discharge Plan Discharge Chief Complaint: Upper Respiratory Infection Clinical Impression: Pneumonia Patient Disposition: Home, Self-Care Time of Disposition Decision: 01:07 Prescriptions / Home Meds: New levofloxacin 750 mg tablet 750 mg PO DAILY 7 Days Qty: 7 0RF No Action amlodipine simvastatin metoprolol tartrate gabapentin omeprazole amlodipine 2.5 mg tablet 2.5 mg PO DAILY atorvastatin 20 mg tablet 20 mg PO DAILY gabapentin 100 mg capsule 100 mg PO BID isosorbide mononitrate 30 mg tablet extended release 24 hr 30 mg PO DAILY losartan 100 mg tablet 100 mg PO DAILY metoprolol tartrate 25 mg tablet 25 mg PO BID omeprazole 20 mg capsule,delayed release(DR/EC) 20 mg PO DAILY aspirin 81 mg tablet,delayed release (DR/EC) 81 mg PO DAILY Print Language: Chinese Instructions: Pneumonia (ED) Additional Instructions: Follow-up with your PCP in the next 1 to 2 days. Return to the emergency department should symptoms worsen or become worrisome in any way. Referrals: Physician,Non-Staff, MD [Primary Care Provider] - 1 week
[2024-09-10 20:30] LABS: Basophils Absolute Auto 0.1 10^3/uL (0.0-0.1); Basophils Percent Auto 0.6 % (0.2-2.0); Eosinophils Absolute Auto 0.6 10^3/uL (0.0-0.7); Eosinophils Percent Auto 6.7 % (0.9-7.0); Hematocrit 34.7 % (42.0-54.0); Hemoglobin 11.3 g/dL (14.0-18.0); Immature Granulocytes Abs Auto 0.03 10^3/uL (0.00-0.03); Immature Granulocytes Pct Auto 0.4 % (0.0-0.5); Lymphocytes Absolute Auto 2.1 10^3/uL (1.2-3.8); Lymphocytes Percent Auto 25.4 % (20.5-60.0); Mean Corpuscular HGB Conc 32.6 g/dL (29.9-35.2); Mean Corpuscular Hemoglobin 31.1 pg (25.9-34.0); Mean Corpuscular Volume 95.6 fL (80.0-94.0); Mean Platelet Volume 9.3 fL (9.5-13.5); Monocytes Absolute Auto 0.8 10^3/uL (0.3-0.8); Monocytes Percent Auto 9.1 % (1.7-12.0); Neutrophils Absolute Auto 4.8 10^3/uL (1.4-6.5); Neutrophils Percent Auto 57.8 % (43.0-75.0); Platelet Count 262 10^3/uL (150-450); Red Blood Count 3.63 10^6/uL (4.70-6.10); Red Cell Distribution Width 13.6 % (11.0-15.0); White Blood Count 8.4 10^3/uL (4.0-11.0)
[2024-09-10 20:47] LABS: INR 0.96; Partial Thromboplastin Time 28.9 sec (22.3-36.2); Prothrombin Time 10.2 sec (9.0-11.6)
[2024-09-10 20:50] LABS: Influenza Virus A Antigen Negative; Influenza Virus B Antigen Negative; Internal Control Within Normal Limits; SARS-CoV-2 Ag NEGATIVE (NEGATIVE)
[2024-09-10 20:51] LABS: Alanine Aminotransferase 25 U/L (16-63); Albumin Globulin Ratio 0.9; Alkaline Phosphatase 51 U/L (46-116); Aspartate Amino Transferase 14 U/L (15-37); BUN Creatinine Ratio 24.2; Bilirubin Total 0.2 mg/dL (0.2-1.0); Carbon Dioxide 29.8 mmol/L (21.0-32.0); Chloride 105 mmol/L (98-107); Estimated GFR (African America >60 (>=60 mL/min/1.73m^2); Estimated GFR (Non-African Ame >60 (>=60 mL/min/1.73m^2); Globulin 3.2 g/dL; Glucose 111 mg/dL (74-106); Potassium 3.8 mmol/L (3.5-5.1); Sodium 141 mmol/L (136-145); Total Protein 6.2 g/dL (6.4-8.2); Troponin I High Sensitivity 7.6 pg/mL (4.0-76.1)
[2024-09-10 22:15] VITALS: BP 142/87; PULSE 69; O2SAT 94
[2024-09-10 22:30] VITALS: BP 146/86
[2024-09-11] MEDS: LEVOFLOXACIN IN DEXTROSE 5 % 750 MG/150 ML PREMIX 100 MG IV (00:18)
[2024-09-11 01:48] VITALS: BP 146/86; O2SAT 98
== END 2024-09-11 01:51 | disposition home or self-care (01) ==
PROVIDERS: Emergency Provider Emergency Medicine
DX: J18.9 Pneumonia, unspecified organism (principal); Z20.822 Contact with and (suspected) exposure to COVID-19
CPT/HCPCS: 36415; 71046; 80053; 83880; 84484; 85025; 85610; 85730; 87502; 87804; 87811; 96365; 99284